=== PATIENT | male | born 1940 | race Hispanic/Latino ===

== ENCOUNTER 2016-09-12 08:03 | Inpatient (IN) | payer MEDICARE, BC ==
[2016-09-12 08:08] VITALS: BMI 26.6
[2016-09-12] MEDS: Sodium Chloride 0.9% 500 ML IV SCH ×2 (08:40→23:00)
[2016-09-12 08:54] LABS: BASO # 0.1 K/uL (0.0-0.2); BASO % 2.1 % (0.0-2.0); EOS # 0.4 K/uL (0.0-0.7); EOS % 9.2 % (0.0-4.0); HEMATOCRIT 29.4 % (35.0-51.0); LYMPH # 0.9 K/uL (1.0-4.3); MEAN CELL VOLUME 89.4 fl (80.0-94.0); MEAN CORPUSCULAR HGB CONC 33.5 g/dL (33.0-37.0); MEAN PLATELET VOLUME 8.5 fl (7.2-11.7); MONO # 0.6 K/uL (0.0-0.8); MONO % 13.2 % (0.0-10.0); NEUT # 2.4 K/uL (1.8-7.0); NEUT % 55.5 % (50.0-75.0); NRBC % 0.2 % (0.0-0.0); RED CELL DISTRIBUTION WIDTH 16.3 % (11.5-14.5); WHITE BLOOD COUNT 4.3 K/uL (4.8-10.8)
[2016-09-12] MEDS ORDERED: Dexamethasone 10 MG in Sodium Chloride 0.9% 50 ML IVPB ONE (09:15)
[2016-09-12 09:26] LABS: ALB/GLOB RATIO 1.2 (1.0-2.1); ALKALINE PHOSPHATASE 86 U/L (38-126); ALT/SGPT 29 U/L (21-72); AST/SGOT 25 U/L (17-59); BILIRUBIN,TOTAL 0.4 mg/dl (0.2-1.3); BLOOD UREA NITROGEN 12 mg/dl (9-20); CARBON DIOXIDE 25 mmol/L (22-30); CHLORIDE 110 mmol/L (98-107); GFR AFRICAN-AMERICAN > 60; GLUCOSE,RANDOM 116 mg/dL (75-110); POTASSIUM 3.2 MMOL/L (3.6-5.0); SODIUM 146 mmol/l (132-148); TOTAL PROTEIN 6.2 G/DL (6.3-8.2)
[2016-09-12] MEDS ORDERED: Cilostazol 50 mg Tab UD PO SCH (09:45)
[2016-09-12 09:56] LABS: CARCINOEMBRYONIC ANTIGEN 11.3 ng/mL (0-3.0)
[2016-09-12] MEDS ORDERED: KCL 40MEQ/NS 1L 1,000 ML IV SCH (10:00)
[2016-09-12] MEDS ORDERED: Lidocaine/Prilocaine CREAM 5GM TP ONE (10:30)
--- NOTE | 2016-09-12 11:16 | CP.PCM.CON ---
History of Present Illness - History of Present Illness History of Present Illness: This is a 76 yrs old male who was diagnosed to have a colon cancer 2 yrs ago. He received chemotherapy and was in remission for 1 yr after which he had a recurrent disease at the, site of anastomosis.and another in the sigmoid colon. Other than occasional diarrhea off and on he has been feeling well. His appetite is good.. He is her for his last dose of chemo after which he will get a PET scan to look for persistant disease. 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,L eye glass) Hx Cataracts: Yes Hx Glaucoma: Yes Other/Comment: Left eye prothesis - RENAL Hx Chronic Kidney Disease: No - ENDOCRINE/METABOLIC Hx Endocrine Disorders: Yes Hx Diabetes Mellitus Type 2: Yes Other/Comment: diabetic neuropathy - HEMATOLOGICAL/ONCOLOGICAL Hx Blood Disorders: Yes Hx AIDS: No Hx Anemia: Yes Hx Blood Transfusions: Yes Hx Blood Transfusion Reaction: No Hx Cancer: Yes (colon) Hx Chemotherapy: Yes Other/Comment: HX MRSA CYST ON SHOULDER - INTEGUMENTARY Hx Dermatological Problems: Yes - MUSCULOSKELETAL/RHEUMATOLOGICAL Hx Musculoskeletal Disorders: Yes Hx Arthritis: Yes Hx Falls: Yes - GASTROINTESTINAL Hx Gastrointestinal Disorders: Yes Hx Bowel Surgery: Yes (colon resection) Hx Gastroesophageal Reflux: Yes Hx Ulcer: Yes (gastric) Other/Comment: HIATAL HERNIA - GENITOURINARY/GYNECOLOGICAL Hx Genitourinary Disorders: No - PSYCHIATRIC Hx Psychophysiologic Disorder: Yes Hx Anxiety: Yes Hx Emotional Abuse: No Hx Physical Abuse: No Hx Substance Use: No - SURGICAL HISTORY Hx Surgeries: Yes Hx Angioplasty: Yes Hx Cataract Extraction: Yes Hx Cardiac Catheterization: Yes (WITH STENT PLACEMENT X 8) Hx Coronary Stent: Yes Hx Tonsillectomy: Yes Other/Comment: NASAL DEVIATED SEPTUM REPAIR 1974. RADIOFREQUENCY ABLATION NERVES BACK 2012. COLON RESECTION 11/2013. DAVID CATH INSERTION 11/2013 & REMOVED DUE TO MRSA - ANESTHESIA Hx Anesthesia: Yes Hx Anesthesia Reactions: No Hx Malignant Hyperthermia: No Meds Allergies/Adverse Reactions: Allergies Allergy/AdvReac Type Severity Reaction Status Date / Time latex Allergy Mild RASH Verified 09/12/16 08:16 codeine Allergy HALLUCINATI Verified 09/12/16 08:16 ON cefepime HCl [From Maxipime] AdvReac Severe Confusion Verified 09/12/16 08:16 gabapentin [From Neurontin] AdvReac Confusion Verified 09/12/16 08:16 morphine AdvReac Hallucinati Verified 09/12/16 08:16 on oxycodone HCl [From Percocet] AdvReac Hallucinati Verified 09/12/16 08:16 on - Medications Medications: Current Medications Amlodipine Besylate (Norvasc) 5 mg PO HS [facility] Ascorbic Acid (Vitamin C 500 Mg Tab) 500 mg PO DAILY [facility] Atorvastatin Calcium (Lipitor) 40 mg PO HS [facility] Famotidine (Pepcid) 20 mg PO BID [facility] Ferrous Sulfate (Feosol) 325 mg PO DAILY [facility] Sodium Chloride (Sodium Chloride 0.9%) 500 mls @ 80 mls/hr IV .Q6H15M [facility] Fluorouracil 680 mg/ Sodium (Chloride) 113.6 mls @ 454.4 mls/hr IV ONCE ONE PRN Reason: As Directed Stop: 09/12/16 12:14 Oxaliplatin 145 mg/ Dextrose 279 mls @ 139.5 mls/hr IV ONCE ONE PRN Reason: As Directed Stop: 09/12/16 14:29 Leucovorin Calcium 680 mg/ (Dextrose) 250 mls @ 125 mls/hr IVPB ONCE ONE PRN Reason: As Directed Stop: 09/12/16 14:14 Fluorouracil 4,080 mg/ Sodium (Chloride) 1,081.6 mls @ 24.582 mls/hr IV ONCE ONE PRN Reason: As Directed Stop: 09/14/16 10:14 Potassium Chloride 40 meq/ (Sodium Chloride) 1,020 mls @ 50 mls/hr IV .[id number] [facility] Stop: 09/13/16 10:01 Insulin Detemir (Levemir) 30 units SC HS [facility] Insulin Human Lispro (Humalog) 12 units SC AC [facility] Loperamide HCl (Imodium) 4 mg PO QID PRN PRN Reason: Diarrhea Losartan Potassium (Cozaar) 100 mg PO HS [facility] Nadolol (Corgard) 40 mg PO DAILY [facility] Theophylline (Uniphyl) 400 mg PO DAILY [facility] Physical Exam - Additional Findings Additional findings: Physical exam; Alert, well oriented, in no acute eidtress neck; Supple, no adenopathy Chest; Clear, no rales or rhonchi Heart; RSR, no murmur Abd; Soft, no mass, no h/s megaly Results - Vital Signs Recent Vital Signs: Last Vital Signs Temp 98.2 F 09/12/16 09:00 Pulse 65 09/12/16 09:14 Resp 18 09/12/16 09:14 BP 135/76 09/12/16 09:00 Pulse Ox 100 09/12/16 09:14 - Labs Result Diagrams: 09/12/16 08:51 09/12/16 08:51 Labs: Laboratory Results - last 24 hr 09/12/16 08:51 WBC 4.3 L RBC 3.29 L Hgb 9.9 L Hct 29.4 L MCV 89.4 MCH 30.0 MCHC 33.5 RDW 16.3 H Plt Count 102 L D MPV 8.5 Neut % (Auto) 55.5 Lymph % (Auto) 20.0 [place] % (Auto) 13.2 H Eos % (Auto) 9.2 H Baso % (Auto) 2.1 H Neut # 2.4 Lymph # 0.9 L [place] # 0.6 Eos # 0.4 Baso # 0.1 Sodium 146 Potassium 3.2 L Chloride 110 H Carbon Dioxide 25 Anion Gap 14 BUN 12 Creatinine 1.0 Est GFR ( Amer) > 60 Est GFR (Non-Af Amer) > 60 Random Glucose 116 H Calcium 9.0 Total Bilirubin 0.4 AST 25 ALT 29 Alkaline Phosphatase 86 Total Protein 6.2 L Albumin 3.4 L Globulin 2.8 Albumin/Globulin Ratio 1.2 Carcinoembryonic Ag 11.3 H Assessment & Plan - Assessment and Plan (Free Text) Assessment: IMpression Colon cancer, recurrent disease Plan: Will give chemotherapy with FOLFOX bolus today and then fluorouracil infusion over 44 hrs - Date & Time Date: 09/12/16 Time: 11:30
[2016-09-12] MEDS: Insulin Lispro (humaLOG) 100 Units/ml Inj SC SCH ×2 (12:00→17:47)
[2016-09-12] MEDS ORDERED: FLUOROURACIL IV ONE ×2 (12:00→14:15)
[2016-09-12] MEDS ORDERED: SODIUM CHLORIDE 0.9% IV ONE ×2 (12:00→14:15)
[2016-09-12] MEDS ORDERED: DEXTROSE 5% IVPB ONE (12:15)
[2016-09-12] MEDS ORDERED: LEUCOVORIN CALCIUM IVPB ONE (12:15)
[2016-09-12] MEDS ORDERED: WATER IVPB ONE (12:15)
--- NOTE | 2016-09-12 12:21 | HP ---
ADMITTING DIAGNOSES: Metastatic colon cancer, insulin-dependent diabetes mellitus, coronary artery d isease. HISTORY OF PRESENT ILLNESS: This unfortunate 76-year-old gentleman is admitted today, 09/12, for cont inuation of chemotherapy. The patient was diagnosed originally with colon cancer about 2 years ago a nd underwent multiple courses of chemotherapy and a partial colon resection. Followup PET scan, jin jagdish, revealed a new lesion at the anastomotic surgical site of partial colectomy and the chemotherapy has been reinitiated on a biweekly basis. PAST MEDICAL HISTORY: Significant for coronary artery disease, 10 stents placed in the past, also in sulin-dependent diabetes mellitus, diabetic retinopathy, blindness, diabetic neuropathy, hypertension , hyperlipidemia, chronic back pain secondary to osteoarthritis. He is an exsmoker, smoked for many years. Denies any alcohol abuse, but he drinks socially. FAMILY HISTORY: Significant for diabetes in a child. PAST SURGICAL HISTORY: Enucleation of the left eye, multiple coronary stents and partial colon resec tion. PHYSICAL EXAMINATION: GENERAL: He is a pleasant, though this morning a rather demure elderly white gentleman, awake, alert , oriented x 3 in no acute distress. His is at bedside. VITAL SIGNS: Reveal blood pressure of 135/76, respirations 18, pulse 68, temperature 98.2. 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 NECK: Supple. No JVD, bruits, no thyromegaly. CHEST: Symmetrical. LUNGS: Clear. HEART: Regular rhythm and rate. ABDOMEN: Soft, diffusely slightly tender. No guarding or rebound tenderness. EXTREMITIES: No cyanosis, clubbing, or edema. NEUROLOGIC: Nonfocal. ASSESSMENT: We have a 76-year-old gentleman with colon cancer readmitted for 5-FU and continuation o f his chemotherapeutic regimen. Dr. Mills's help was greatly appreciated. PLAN: Will continue his regular medications. Hypokalemia is noted on his admission orders and this will be repleted. His albumin was 3.4, hemoglobin 9.9, platelets 102. Sylvain Durán MD cc: [id number] TT: 09/12/2016 12:21:31 rn
[2016-09-12] MEDS ORDERED: WATER IV ONE (12:30)
[2016-09-12] MEDS ORDERED: DEXTROSE 5% IV ONE (12:30)
[2016-09-12] MEDS ORDERED: OXALIPLATIN IV ONE (12:30)
[2016-09-12] MEDS ORDERED: Potassium Chloride 20 mEq ER Tab PO ONE (17:00)
[2016-09-12] MEDS: Cilostazol 50 mg Tab UD PO SCH (17:45)
[2016-09-12] MEDS ORDERED: Insulin Lispro (humaLOG) 100 Units/ml Inj SC STA (18:04)
[2016-09-12 19:47] VITALS: RESP 20
[2016-09-12] MEDS: Insulin Detemir 100 Units/ml Inj SC SCH (22:50)
[2016-09-13] MEDS: Insulin Lispro (humaLOG) 100 Units/ml Inj SC SCH ×3 (08:59→17:55)
[2016-09-13] MEDS: THEOPHYLLINE 400 MG T24(UNIPHYL) PO SCH (09:03)
[2016-09-13] MEDS: Cilostazol 50 mg Tab UD PO SCH ×2 (09:05→16:56)
[2016-09-13] MEDS: VIT C PO SCH (09:06)
[2016-09-13] MEDS: FE FUMARATE PO SCH (09:06)
[2016-09-13] MEDS: B12 PO SCH (09:06)
[2016-09-13] MEDS: [UNRECOGNIZED DRUG - OTHER] PO SCH (09:06)
[2016-09-13 09:10] LABS: EOS # 0.2 K/uL (0.0-0.7); EOS % 3.9 % (0.0-4.0); LYMPH # 0.1 K/uL (1.0-4.3); LYMPH % 1.8 % (20.0-40.0); MEAN CORPUSCULAR HEMOGLOBIN 29.6 pg (27.0-31.0); MEAN CORPUSCULAR HGB CONC 32.5 g/dL (33.0-37.0); MEAN PLATELET VOLUME 9.2 fl (7.2-11.7); MONO # 0.4 K/uL (0.0-0.8); MONO % 9.8 % (0.0-10.0); NEUT # 3.8 K/uL (1.8-7.0); NEUT % 83.5 % (50.0-75.0); NRBC % 0.1 % (0.0-0.0); PLATELET COUNT 93 K/uL (130-400); RED CELL DISTRIBUTION WIDTH 16.5 % (11.5-14.5); WHITE BLOOD COUNT 4.5 K/uL (4.8-10.8)
[2016-09-13 09:23] LABS: BLOOD UREA NITROGEN 15 mg/dl (9-20); CALCIUM 9.2 mg/dL (8.4-10.2); CARBON DIOXIDE 23 mmol/L (22-30); CHLORIDE 109 mmol/L (98-107); GFR AFRICAN-AMERICAN > 60; GLUCOSE,RANDOM 199 mg/dL (75-110); POTASSIUM 3.7 MMOL/L (3.6-5.0); SODIUM 145 mmol/l (132-148)
--- NOTE | 2016-09-13 10:02 | CP.PCM.PN ---
Subjective - Date & Time of Evaluation Date of Evaluation: 09/13/16 Time of Evaluation: 09:54 - Subjective Subjective: Pt is on the 2nd day of fluorocil infusion. He has no symptoms at this time, except the constipation.He will be discharged after the infusion is finished. Objective - Vital Signs/Intake and Output Vital Signs (last 24 hours): Temp Pulse Resp BP Pulse Ox 98.8 F 75 20 137/63 100 09/13/16 08:31 09/13/16 09:04 09/13/16 08:31 09/13/16 09:04 09/13/16 08:31 - Medications Medications: Current Medications Acetaminophen (Tylenol 325mg Tab) 975 mg PO TID PRN PRN Reason: Pain, moderate (4-7) Last Admin: 09/12/16 20:32 Dose: 975 mg Amlodipine Besylate (Norvasc) 5 mg PO HS [facility] Last Admin: 09/12/16 21:34 Dose: 5 mg Ascorbic Acid (Vitamin C 500 Mg Tab) 500 mg PO DAILY [facility] Last Admin: 09/13/16 09:05 Dose: 500 mg Ascorbic Acid (Vitamin C 250 Mg Tab) 250 mg PO DAILY [facility] Last Admin: 09/13/16 09:04 Dose: 250 mg Aspirin (Aspirin Chewable) 81 mg PO HS [facility] Last Admin: 09/12/16 21:35 Dose: 81 mg Atorvastatin Calcium (Lipitor) 40 mg PO HS [facility] Last Admin: 09/12/16 21:36 Dose: 40 mg Cholecalciferol (Vitamin D) 2,000 iu PO DAILY [facility] Cilostazol (Pletal) 50 mg PO BID [facility] Last Admin: 09/13/16 09:05 Dose: 50 mg Famotidine (Pepcid) 20 mg PO BID [facility] Last Admin: 09/13/16 09:05 Dose: 20 mg Home Med (Fe Fumarate/Vit C/B12/Stomc [Hematogen Softgel]) 1 gel PO DAILY [facility] Last Admin: 09/13/16 09:06 Dose: 1 gel Sodium Chloride (Sodium Chloride 0.9%) 500 mls @ 80 mls/hr IV .Q6H15M [facility] Last Admin: 09/12/16 23:00 Dose: Not Given Fluorouracil 4,080 mg/ Sodium (Chloride) 1,081.6 mls @ 24.582 mls/hr IV ONCE ONE PRN Reason: As Directed Stop: 09/14/16 10:14 Last Admin: 09/12/16 16:34 Dose: 24.582 mls/hr Insulin Detemir (Levemir) 30 units SC [facility] Last Admin: 09/12/16 22:50 Dose: 30 units Insulin Human Lispro (Humalog) 12 units SC [facility] Last Admin: 09/13/16 08:59 Dose: Not Given Loperamide HCl (Imodium) 4 mg PO QID PRN PRN Reason: Diarrhea Losartan Potassium (Cozaar) 100 mg PO [facility] Last Admin: 09/12/16 21:35 Dose: 100 mg Nadolol (Corgard) 40 mg PO DAILY [facility] Last Admin: 09/13/16 09:04 Dose: 40 mg Theophylline (Uniphyl) 400 mg PO DAILY [facility] Last Admin: 09/13/16 09:03 Dose: 400 mg - Labs Labs: 09/13/16 08:26 09/13/16 08:35
[2016-09-13 10:59] LABS: EOSINOPHIL 6 % (0-7); NEUTROPHIL 85 % (42-75); TOTAL CELLS COUNTED 100
--- NOTE | 2016-09-13 11:55 | PQF GENQUE ---
Dr. Durán, Is there an associated diagnosis to go along with the following clinical labs? : WBC:4.3->4.5 RBC:3.29->3.18 H/H:9.9/29.4->9.4/29.0 Plt Count:102->93 OR: Unable to determine Admitted for chemotherapy;hematogen softgel:1 gel PO Daily This form is a permanent part of the medical record Clarification of your documentation is requested to better reflect the severity of illness and intensity of treatment of your patient. Indicators present [] Specify: [] [] Specify: [] [] Specify: [] [] Specify: [] Location in the medical record that reflects the above clinical findings: [] Treatment Provided: [] PHYSICIAN'S RESPONSE Based on your medical judgment of the clinical indicators outlined above please clarify the following: [] Practitioner response [] If unable to determine, please check the box, sign and date. Present On Admission (POA) Indicator: [] Present at the time of admission [] Not present at the time of admission [] Clinically Undetermined In responding to this query, please exercise your independent professional judgment. The fact that a question is asked does not imply that any particular answer is desired or expected. Thank you for your clarification on this documentation. If you have any questions please call. * Thank you, Rebecca Hogan RN BSN ext. #[phone] MTDD
--- NOTE | 2016-09-13 19:15 | PN ---
DATE: 09/13/2016 ATTENDING: The patient appears comfortable, but says he slept poorly last night and has had cramps. PHYSICAL EXAMINATION: VITAL SIGNS: Stable. Temperature is 98.5, respirations 20, pulse 75, blood pressure 118/52. LUNGS: Clear. HEART: Regular rhythm. ABDOMEN: Soft, __diffusely___ slightly tender. EXTREMITIES: No edema. PLAN: Continue current therapy. Will add to the regimen. Continue with chemotherapy. Recheck labs tomorrow morning. Sylvain Durán MD cc: 84 TT: 09/13/2016 19:15:12 Confirmation # [id number] Dictation # [id number] dn MTDD
[2016-09-13] MEDS: Insulin Detemir 100 Units/ml Inj SC SCH (22:37)
[2016-09-14] MEDS: Cilostazol 50 mg Tab UD PO SCH ×2 (08:18→17:41)
[2016-09-14] MEDS: [UNRECOGNIZED DRUG - OTHER] PO SCH (08:20)
[2016-09-14] MEDS: THEOPHYLLINE 400 MG T24(UNIPHYL) PO SCH (08:20)
[2016-09-14] MEDS: VIT C PO SCH (08:20)
[2016-09-14] MEDS: B12 PO SCH (08:20)
[2016-09-14] MEDS: FE FUMARATE PO SCH (08:20)
[2016-09-14] MEDS: Insulin Lispro (humaLOG) 100 Units/ml Inj SC SCH ×3 (08:24→16:25)
[2016-09-14 08:47] LABS: BLOOD UREA NITROGEN 16 mg/dl (9-20); CALCIUM 8.9 mg/dL (8.4-10.2); CARBON DIOXIDE 25 mmol/L (22-30); CHLORIDE 111 mmol/L (98-107); GFR AFRICAN-AMERICAN > 60; GLUCOSE,RANDOM 55 mg/dL (75-110); POTASSIUM 3.5 MMOL/L (3.6-5.0); SODIUM 142 mmol/l (132-148)
[2016-09-14] MEDS ORDERED: Potassium Chloride 20 mEq ER Tab PO ONE (09:52)
--- NOTE | 2016-09-14 11:01 | PN ---
DATE: 09/14/2016 The patient appears comfortable. Said he slept poorly again last night. Chemotherapy is continuing. PHYSICAL EXAMINATION: VITAL SIGNS: Stable. Temperature 98.5, respirations 20, pulse 54, blood pressure 125/55. LUNGS: Clear. HEART: Regular rate and rhythm. ABDOMEN: Soft, slightly tender. EXTREMITIES: No edema. LABORATORY DATA: Hemoglobin yesterday 9.4, potassium 3.5. PLAN: Replete potassium orally and then likely discharge to home with followup in 2 weeks for repeat chemotherapy here in [facility]. Sylvain Durán MD cc: 84 TT: 09/14/2016 11:01:18 Confirmation # [id number] Dictation # [id number] chintan
--- NOTE | 2016-09-14 12:14 | CP.PCM.PN ---
Subjective - Date & Time of Evaluation Date of Evaluation: 09/14/16 Time of Evaluation: 12:07 - Subjective Subjective: pt is on the 3rd day of fluorocil infusion. He will be discharged when it is finished. Will return in 2 weeks for the next course of chemotherapy. Objective - Vital Signs/Intake and Output Vital Signs (last 24 hours): Temp Pulse Resp BP Pulse Ox 98.5 F 54 L 20 125/55 L 99 09/14/16 08:07 09/14/16 08:20 09/14/16 08:07 09/14/16 08:20 09/14/16 08:07 - Medications Medications: Current Medications Acetaminophen (Tylenol 325mg Tab) 975 mg PO TID PRN PRN Reason: Pain, moderate (4-7) Last Admin: 09/14/16 05:13 Dose: 975 mg Amlodipine Besylate (Norvasc) 5 mg PO [facility] Last Admin: 09/13/16 21:46 Dose: 5 mg Ascorbic Acid (Vitamin C 500 Mg Tab) 500 mg PO DAILY [facility] Last Admin: 09/14/16 08:19 Dose: 500 mg Ascorbic Acid (Vitamin C 250 Mg Tab) 250 mg PO DAILY [facility] Last Admin: 09/14/16 08:18 Dose: Not Given Aspirin (Aspirin Chewable) 81 mg PO [facility] Last Admin: 09/13/16 21:45 Dose: 81 mg Atorvastatin Calcium (Lipitor) 40 mg PO [facility] Last Admin: 09/13/16 21:46 Dose: 40 mg Cholecalciferol (Vitamin D) 2,000 iu PO DAILY [facility] Last Admin: 09/14/16 08:23 Dose: 2,000 iu Cilostazol (Pletal) 50 mg PO BID [facility] Last Admin: 09/14/16 08:18 Dose: 50 mg Famotidine (Pepcid) 20 mg PO BID [facility] Last Admin: 09/14/16 08:22 Dose: 20 mg Home Med (Fe Fumarate/Vit C/B12/Stomc [Hematogen Softgel]) 1 gel PO DAILY [facility] Last Admin: 09/14/16 08:20 Dose: 1 gel Sodium Chloride (Sodium Chloride 0.9%) 500 mls @ 80 mls/hr IV .Q6H15M [facility] Last Admin: 09/12/16 23:00 Dose: Not Given Insulin Detemir (Levemir) 30 units SC [facility] Last Admin: 03/21/17 22:37 Dose: 20 units Insulin Human Lispro (Humalog) 12 units SC AC [facility] Last Admin: 09/14/16 08:24 Dose: Not Given Loperamide HCl (Imodium) 4 mg PO QID PRN PRN Reason: Diarrhea Last Admin: 09/13/16 17:50 Dose: 4 mg Losartan Potassium (Cozaar) 100 mg PO [facility] Last Admin: 09/13/16 21:46 Dose: 100 mg Nadolol (Corgard) 40 mg PO DAILY [facility] Last Admin: 09/14/16 08:20 Dose: 40 mg Theophylline (Uniphyl) 400 mg PO DAILY [facility] Last Admin: 09/14/16 08:20 Dose: 400 mg - Labs Labs: 09/14/16 08:20 09/14/16 08:20
[2016-09-14 17:10] VITALS: BP 173/72; PULSE 78; TEMP 98.3; O2SAT 100
== END 2016-09-14 19:34 | disposition home or self-care (01) | DRG 847 ==
LOC: H.MEDSURG1 08:13
PROVIDERS: ADMIT Internal Medicine; ATTEND Internal Medicine
DX: Z51.11 Encounter for antineoplastic chemotherapy (principal); C18.9 Malignant neoplasm of colon, unspecified; E11.40 Type 2 diabetes mellitus with diabetic neuropathy, unspecified; I10 Essential (primary) hypertension; E78.5 Hyperlipidemia, unspecified; D63.8 Anemia in other chronic diseases classified elsewhere; I25.10 Atherosclerotic heart disease of native coronary artery without angina pectoris; Z95.5 Presence of coronary angioplasty implant and graft; Z87.891 Personal history of nicotine dependence; E11.319 Type 2 diabetes mellitus with unspecified diabetic retinopathy without macular edema

== ENCOUNTER 2016-09-26 07:41 | Inpatient (IN) | payer MEDICARE, BC ==
[2016-09-26] MEDS ORDERED: Lidocaine/Prilocaine CREAM 5GM TP ONE (09:01)
[2016-09-26] MEDS: Sodium Chloride 0.9% 500 ML IV SCH ×2 (09:20→17:17)
[2016-09-26 09:44] LABS: BASO % 1.3 % (0.0-2.0); EOS # 0.4 K/uL (0.0-0.7); EOS % 10.3 % (0.0-4.0); LYMPH # 0.8 K/uL (1.0-4.3); LYMPH % 22.3 % (20.0-40.0); MEAN CORPUSCULAR HEMOGLOBIN 30.2 pg (27.0-31.0); MEAN CORPUSCULAR HGB CONC 33.2 g/dL (33.0-37.0); MEAN PLATELET VOLUME 8.7 fl (7.2-11.7); MONO # 0.4 K/uL (0.0-0.8); MONO % 10.9 % (0.0-10.0); NEUT % 55.2 % (50.0-75.0); WHITE BLOOD COUNT 3.6 K/uL (4.8-10.8)
[2016-09-26 09:57] LABS: ALB/GLOB RATIO 1.2 (1.0-2.1); ALKALINE PHOSPHATASE 80 U/L (38-126); ALT/SGPT 27 U/L (21-72); AST/SGOT 27 U/L (17-59); BILIRUBIN,TOTAL 0.4 mg/dl (0.2-1.3); BLOOD UREA NITROGEN 15 mg/dl (9-20); CALCIUM 9.1 mg/dL (8.4-10.2); CARBON DIOXIDE 25 mmol/L (22-30); CHLORIDE 111 mmol/L (98-107); GFR AFRICAN-AMERICAN > 60; GLUCOSE,RANDOM 174 mg/dL (75-110); POTASSIUM 3.4 MMOL/L (3.6-5.0); SODIUM 147 mmol/l (132-148); TOTAL PROTEIN 6.1 G/DL (6.3-8.2)
--- NOTE | 2016-09-26 10:22 | HP ---
ADMITTING DIAGNOSES: Colon cancer, diabetes, coronary artery disease. This unfortunate 76-year-old gentleman with multiple medical problems represents to [place] today for another round of chemotherapy for his metastatic colon cancer. The patient was originally diagnosed 2 years ago and underwent multiple courses and partial colon resection. Followup PET scan revealed a new lesion in the anastomotic surgical site with a partial colectomy , and chemotherapy was reinitiated on a biweekly basis. PAST MEDICAL HISTORY: Coronary artery disease, status post 10 stents placed in the past, IDDM, diabetic retinopathy with blindness, diabetic neuropathy, hypertension, hyperlipidemia. He also has chronic back pain secondary to osteoarthritis. SOCIAL HISTORY: He is an ex-smoker, smoked for many years. Denies any alcohol use, but drinks socially. FAMILY HISTORY: Significant for diabetes in his child. PAST SURGICAL HISTORY: Multiple coronary stents and enucleation of the left eye. PHYSICAL EXAMINATION: GENERAL: He is a pleasant, well-developed, well-nourished white gentleman, awake, alert, and oriented x 3 in no acute distress. His is at his bedside. VITAL SIGNS: Reveal a temperature 98.2, respirations 20. Pulse is __regular__ . Blood pressure is 145/6_8___. 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 Right eye is reactive pupil. Mucous membranes are moist. NECK: Supple. No JVD, bruits, no thyromegaly. CHEST: Symmetrical. LUNGS: Clear. HEART: Regular rhythm. ABDOMEN: Soft. Diffusely tender with voluntary guarding, but no rebound. EXTREMITIES: No cyanosis, clubbing, or edema. NEUROLOGIC: Grossly nonfocal, except of course, his left eye. ASSESSMENT: We have a 76-year-old gentleman with metastatic colon cancer for chemotherapy over the next [address] Mills's efforts are greatly appreciated. His regular medications and Accu-Cheks will be continued. The patient is known to frequently alter his dosage of insulin for his diabetes, and he will be given latitude. Sylvain Durán MD cc: 84 TT: 09/26/2016 10:21:13 jn MTDDanny
[2016-09-26] MEDS ORDERED: Dexamethasone 10 MG in Sodium Chloride 0.9% 50 ML IVPB ONE (10:30)
[2016-09-26] MEDS ORDERED: Fosaprepitant 150 MG in Sodium Chloride 0.9% 250 ML IVPB ONE (11:00)
[2016-09-26] MEDS ORDERED: OXALIPLATIN IV ONE (11:00)
[2016-09-26] MEDS ORDERED: DEXTROSE 5% IV ONE (11:00)
[2016-09-26] MEDS ORDERED: WATER IVPB ONE (11:00)
[2016-09-26] MEDS ORDERED: LEUCOVORIN CALCIUM IVPB ONE (11:00)
[2016-09-26] MEDS ORDERED: WATER IV ONE (11:00)
[2016-09-26] MEDS ORDERED: DEXTROSE 5% IVPB ONE (11:00)
[2016-09-26] MEDS ORDERED: FLUOROURACIL IV ONE ×2 (12:00→13:00)
[2016-09-26] MEDS ORDERED: SODIUM CHLORIDE 0.9% IV ONE ×2 (12:00→13:00)
[2016-09-26] MEDS: Insulin Lispro (humaLOG) 100 Units/ml Inj SC SCH ×3 (13:26→22:08)
--- NOTE | 2016-09-26 13:50 | HP ---
ADMITTING DIAGNOSIS: Metastatic colon cancer. DICTATION ENDS HERE. (cancelled by ringing phone and restarted) Sylvain Durán MD cc: 84 TT: 09/26/2016 09:53:01 jn MTDD
--- NOTE | 2016-09-26 16:21 | CP.PCM.CON ---
History of Present Illness - History of Present Illness History of Present Illness: This is a 76 yrs old male who was diagnosed to have a colon cancer 2 yrs ago . He had resection of the mass followed by chemotherapy with FOLFOX . He did well until 6 months ago, when he had recurrent disease in the sigmoid and at the site of metastasis. He was restarted on chemotherapy, and pt has been doing fairly well except for occasional diarrhea.He seems to be getting a little anxious thinking that this is his last treatment. He will then have a PET scan to determine if there is any residual disease. He also has DM, CAD, HTN, COPD, and is legally blind. 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,L eye glass) Hx Cataracts: Yes Hx Glaucoma: Yes Other/Comment: Left eye prothesis - RENAL Hx Chronic Kidney Disease: No - ENDOCRINE/METABOLIC Hx Endocrine Disorders: Yes Hx Diabetes Mellitus Type 2: Yes Other/Comment: diabetic neuropathy - HEMATOLOGICAL/ONCOLOGICAL Hx Blood Disorders: Yes Hx AIDS: No Hx Anemia: Yes Hx Blood Transfusions: Yes Hx Blood Transfusion Reaction: No Hx Cancer: Yes (colon) Hx Chemotherapy: Yes Other/Comment: HX MRSA CYST ON SHOULDER - INTEGUMENTARY Hx Dermatological Problems: Yes - MUSCULOSKELETAL/RHEUMATOLOGICAL Hx Musculoskeletal Disorders: Yes Hx Arthritis: Yes Hx Falls: Yes - GASTROINTESTINAL Hx Gastrointestinal Disorders: Yes Hx Bowel Surgery: Yes (colon resection) Hx Gastroesophageal Reflux: Yes Hx Ulcer: Yes (gastric) Other/Comment: HIATAL HERNIA - GENITOURINARY/GYNECOLOGICAL Hx Genitourinary Disorders: No - PSYCHIATRIC Hx Psychophysiologic Disorder: Yes Hx Anxiety: Yes Hx Emotional Abuse: No Hx Physical Abuse: No Hx Substance Use: No - SURGICAL HISTORY Hx Surgeries: Yes Hx Angioplasty: Yes Hx Cataract Extraction: Yes Hx Cardiac Catheterization: Yes (WITH STENT PLACEMENT X 8) Hx Coronary Stent: Yes Hx Tonsillectomy: Yes Other/Comment: NASAL DEVIATED SEPTUM REPAIR 1974. RADIOFREQUENCY ABLATION NERVES BACK 2012. COLON RESECTION 11/2013. DAVID CATH INSERTION 11/2013 & REMOVED DUE TO MRSA - ANESTHESIA Hx Anesthesia: Yes Hx Anesthesia Reactions: No Hx Malignant Hyperthermia: No Meds Allergies/Adverse Reactions: Allergies Allergy/AdvReac Type Severity Reaction Status Date / Time latex Allergy Mild RASH Verified 09/12/16 08:16 codeine Allergy HALLUCINATI Verified 09/12/16 08:16 ON cefepime HCl [From Maxipime] AdvReac Severe Confusion Verified 09/12/16 08:16 gabapentin [From Neurontin] AdvReac Confusion Verified 09/12/16 08:16 morphine AdvReac Hallucinati Verified 09/12/16 08:16 on oxycodone HCl [From Percocet] AdvReac Hallucinati Verified 09/12/16 08:16 on - Medications Medications: Current Medications Acetaminophen (Tylenol 325mg Tab) 975 mg PO Q6 PRN PRN Reason: Pain, moderate (4-7) Amlodipine Besylate (Norvasc) 5 mg PO DAILY [facility] Ascorbic Acid (Vitamin C 250 Mg Tab) 250 mg PO DAILY [facility] Aspirin (Aspirin Chewable) 81 mg PO DAILY [facility] Atorvastatin Calcium (Lipitor) 40 mg PO DAILY [facility] Cholecalciferol (Vitamin D) 2,000 iu PO DAILY [facility] Cilostazol (Pletal) 50 mg PO DAILY [facility] Famotidine (Pepcid) 20 mg PO BID [facility] Sodium Chloride (Sodium Chloride 0.9%) 500 mls @ 70 mls/hr IV .Q7H9M [facility] Last Admin: 09/26/16 09:20 Dose: 70 mls/hr Fluorouracil 4,080 mg/ Sodium (Chloride) 1,081.6 mls @ 24.582 mls/hr IV ONCE ONE Stop: 09/28/16 08:59 Last Admin: 09/26/16 15:42 Dose: 24.582 mls/hr Insulin Detemir (Levemir) 30 units SC HS [facility] Insulin Human Lispro (Humalog) 0 units SC [facility] PRN Reason: Protocol Last Admin: 09/26/16 13:26 Dose: 1 unit Nadolol (Corgard) 40 mg PO DAILY [facility] Theophylline (Uniphyl) 400 mg PO DAILY [facility] Physical Exam - Additional Findings Additional findings: Physical exam; Alert. well oriented in no acute distress neck; Supple, no adenopathy Chest; Clear, no rales 0r rhonchi Heart; RSR, no murmur Abd; Soft, no mass, no hepato/splenomegaly Results - Vital Signs Recent Vital Signs: Last Vital Signs Temp 98.2 F 09/26/16 09:00 Pulse 61 09/26/16 09:00 Resp 20 09/26/16 09:00 BP 145/69 09/26/16 09:00 Pulse Ox 100 09/26/16 09:00 - Labs Result Diagrams: 09/26/16 09:15 09/26/16 09:15 Labs: Laboratory Results - last 24 hr 09/26/16 09/26/16 09:15 13:04 WBC 3.6 L RBC 2.97 L Hgb 9.0 L Hct 27.0 L MCV 91.0 MCH 30.2 MCHC 33.2 RDW 16.0 H Plt Count 99 L MPV 8.7 Neut % (Auto) 55.2 Lymph % (Auto) 22.3 Bee % (Auto) 10.9 H Eos % (Auto) 10.3 H Baso % (Auto) 1.3 Neut # 2.0 Lymph # 0.8 L Bee # 0.4 Eos # 0.4 Baso # 0.0 Sodium 147 Potassium 3.4 L Chloride 111 H Carbon Dioxide 25 Anion Gap 14 BUN 15 Creatinine 1.0 Est GFR ( Amer) > 60 Est GFR (Non-Af Amer) > 60 POC Glucose (mg/dL) 161 H Random Glucose 174 H Calcium 9.1 Total Bilirubin 0.4 AST 27 ALT 27 Alkaline Phosphatase 80 Total Protein 6.1 L Albumin 3.3 L Globulin 2.8 Albumin/Globulin Ratio 1.2 Assessment & Plan - Assessment and Plan (Free Text) Assessment: Impression; Colon cancer, HTN,COPD, DMtype1, Blindlness both eyes Plan: Plan; Will give chemotherapy with oxaliplatin, leucovorin, fluorouracil a. After chemo he waiil get a PET scan depending on which furthr treatment plan will be made. - Date & Time Date: 09/26/16 Time: 16:34
[2016-09-26] MEDS: Insulin Detemir 100 Units/ml Inj SC SCH (22:08)
[2016-09-27] MEDS ORDERED: Potassium Chloride 20 mEq ER Tab PO ONE (08:14)
[2016-09-27] MEDS: THEOPHYLLINE 400 MG T24(UNIPHYL) PO SCH (08:38)
[2016-09-27] MEDS: Cilostazol 50 mg Tab UD PO SCH (08:38)
[2016-09-27] MEDS: Sodium Chloride 0.9% 500 ML IV SCH ×3 (08:39→21:47)
[2016-09-27] MEDS: Insulin Lispro (humaLOG) 100 Units/ml Inj SC SCH ×4 (08:39→21:28)
--- NOTE | 2016-09-27 08:50 | PQF GENQUE ---
This form is a permanent part of the medical record 09/27/16 Dr.J. Durán, Would you please clarify if there is an associated diagnosis or not to go along with the following lab findings: Wbc 3.6, H&H 03/22 and platelets 99,000. Patient with colon cancer admitted for chemotherapy. Clarification of your documentation is requested to better reflect the severity of illness and intensity of treatment of your patient. PHYSICIAN'S RESPONSE Based on your medical judgment of the clinical indicators outlined above please clarify the following: x[] Practitioner response thrombocytopenia and anemia secondary to chemotherapy [] If unable to determine, please check the box, sign and date. Present On Admission (POA) Indicator: [] xPresent at the time of admission [] Not present at the time of admission [] Clinically Undetermined In responding to this query, please exercise your independent professional judgment. The fact that a question is asked does not imply that any particular answer is desired or expected. Thank you for your clarification on this documentation. If you have any questions please call:[phone] * Thank you, Mimi Rice RN [facility]
[2016-09-27] MEDS ORDERED: Enoxaparin 30 mg Syringe SC SCH (09:00)
--- NOTE | 2016-09-27 09:24 | PN ---
DATE: 09/27/2016 The patient appears comfortable, had diarrhea again last night. Bright and alert today. Hypokalemia noted.Thrombocyrtopenia and anemia secondary to chemotherapy, cancer and chronic disease PHYSICAL EXAMINATION: VITAL SIGNS: Stable. Temperature is 98.5, respirations 20, pulse is 85, blood pressure 116/65. LUNGS: Clear. HEART: Regular rhythm. ABDOMEN: Soft, slightly tender. EXTREMITIES: No edema. No calf tenderness. PLAN: Continue current therapy. We will replete potassium. Electrolytes, CBC , magnesium level tomorrow. Dr. Mills's efforts greatly appreciated. Will give a standing order for Imodium. Sylvain Durán MD cc: [id number] TT: 09/27/2016 09:23:50 Confirmation # [id number] Dictation # [id number] mn MTDD
--- NOTE | 2016-09-27 10:45 | CP.PCM.PN ---
Subjective - Date & Time of Evaluation Date of Evaluation: 09/27/16 Time of Evaluation: 10:42 - Subjective Subjective: Pt had a couple of episodes of diarrhea last night . Better after the immodium. No abdominal pain Objective - Vital Signs/Intake and Output Vital Signs (last 24 hours): Temp Pulse Resp BP Pulse Ox 97.4 F L 78 20 183/78 H 100 09/27/16 08:40 09/27/16 08:40 09/27/16 08:40 09/27/16 08:40 09/27/16 08:40 - Medications Medications: Current Medications Acetaminophen (Tylenol 325mg Tab) 975 mg PO Q6 PRN PRN Reason: Pain, moderate (4-7) Last Admin: 09/27/16 08:38 Dose: 975 mg Amlodipine Besylate (Norvasc) 5 mg PO DAILY [facility] Last Admin: 09/27/16 08:38 Dose: 5 mg Ascorbic Acid (Vitamin C 250 Mg Tab) 250 mg PO DAILY [facility] Last Admin: 09/27/16 08:38 Dose: 250 mg Aspirin (Aspirin Chewable) 81 mg PO DAILY [facility] Last Admin: 09/27/16 08:38 Dose: 81 mg Atorvastatin Calcium (Lipitor) 40 mg PO DAILY [facility] Last Admin: 09/27/16 08:39 Dose: 40 mg Cholecalciferol (Vitamin D) 2,000 iu PO DAILY [facility] Last Admin: 09/27/16 08:38 Dose: 2,000 iu Cilostazol (Pletal) 50 mg PO DAILY [facility] Last Admin: 09/27/16 08:38 Dose: 50 mg Famotidine (Pepcid) 20 mg PO BID [facility] Last Admin: 09/27/16 08:38 Dose: 20 mg Sodium Chloride (Sodium Chloride 0.9%) 500 mls @ 70 mls/hr IV .Q7H9M [facility] Last Admin: 09/27/16 08:39 Dose: Not Given Fluorouracil 4,080 mg/ Sodium (Chloride) 1,081.6 mls @ 24.582 mls/hr IV ONCE ONE Stop: 09/28/16 08:59 Last Admin: 09/26/16 15:42 Dose: 24.582 mls/hr Insulin Detemir (Levemir) 30 units SC [facility] Last Admin: 09/26/16 22:08 Dose: 30 units Insulin Human Lispro (Humalog) 0 units SC ACHS [facility] PRN Reason: Protocol Last Admin: 09/27/16 08:39 Dose: 3 unit Loperamide HCl (Imodium) 4 mg PO QID PRN PRN Reason: Diarrhea Nadolol (Corgard) 40 mg PO DAILY [facility] Last Admin: 09/27/16 08:38 Dose: 40 mg Theophylline (Uniphyl) 400 mg PO DAILY [facility] Last Admin: 09/27/16 08:38 Dose: 400 mg - Labs Labs: 09/26/16 09:15 09/26/16 09:15 Assessment and Plan - Assessment and Plan (Free Text) Assessment: Imp; Colon cancer with recurrent disease. Plan: Plan; Will continue fluorouracil infusion for a total of 44 hrs.
[2016-09-27] MEDS: Insulin Detemir 100 Units/ml Inj SC SCH (21:27)
[2016-09-28 08:20] VITALS: PULSE 69; RESP 20; TEMP 98.1; O2SAT 100
[2016-09-28] MEDS: THEOPHYLLINE 400 MG T24(UNIPHYL) PO SCH (09:05)
[2016-09-28] MEDS: Insulin Lispro (humaLOG) 100 Units/ml Inj SC SCH ×2 (09:06→12:05)
[2016-09-28] MEDS: Sodium Chloride 0.9% 500 ML IV SCH ×2 (09:06→11:31)
[2016-09-28] MEDS: Cilostazol 50 mg Tab UD PO SCH (09:06)
--- NOTE | 2016-09-28 09:24 | CP.PCM.PN ---
Subjective - Date & Time of Evaluation Date of Evaluation: 09/28/16 Time of Evaluation: 09:22 - Subjective Subjective: Pt was here for chemotherapy for colon cancer. He was given bevacizumab + FOLFOX , and did well . He will have a Pet scan in 1 month and a decision of will be made re further treatment. Objective - Vital Signs/Intake and Output Vital Signs (last 24 hours): Temp Pulse Resp BP Pulse Ox 98.1 F 69 20 123/56 L 100 09/28/16 08:19 09/28/16 08:19 09/28/16 08:19 09/27/16 17:00 09/28/16 08:19 - Medications Medications: Current Medications Acetaminophen (Tylenol 325mg Tab) 975 mg PO Q6 PRN PRN Reason: Pain, moderate (4-7) Last Admin: 09/28/16 02:56 Dose: 975 mg Amlodipine Besylate (Norvasc) 5 mg PO [facility] Ascorbic Acid (Vitamin C 250 Mg Tab) 250 mg PO DAILY [facility] Last Admin: 09/28/16 09:04 Dose: 250 mg Aspirin (Aspirin Chewable) 81 mg PO DAILY [facility] Last Admin: 09/28/16 09:14 Dose: 81 mg Atorvastatin Calcium (Lipitor) 40 mg PO [facility] Cholecalciferol (Vitamin D) 2,000 iu PO DAILY [facility] Last Admin: 09/28/16 09:05 Dose: 2,000 iu Cilostazol (Pletal) 50 mg PO DAILY [facility] Last Admin: 09/28/16 09:06 Dose: 50 mg Famotidine (Pepcid) 20 mg PO BID [facility] Last Admin: 09/28/16 09:04 Dose: 20 mg Sodium Chloride (Sodium Chloride 0.9%) 500 mls @ 70 mls/hr IV .Q7H9M [facility] Last Admin: 09/28/16 09:06 Dose: Not Given Insulin Detemir (Levemir) 30 units SC HS [facility] Last Admin: 09/27/16 21:27 Dose: 30 units Insulin Human Lispro (Humalog) 0 units SC ACHS [facility] PRN Reason: Protocol Last Admin: 09/28/16 09:06 Dose: Not Given Loperamide HCl (Imodium) 4 mg PO QID PRN PRN Reason: Diarrhea Nadolol (Corgard) 40 mg PO DAILY [facility] Last Admin: 09/28/16 09:06 Dose: 40 mg Theophylline (Uniphyl) 400 mg PO DAILY [facility] Last Admin: 09/28/16 09:05 Dose: 400 mg - Labs Labs: 09/26/16 09:15 09/26/16 09:15
[2016-09-28 09:31] LABS: BASO % 1.7 % (0.0-2.0); EOS # 0.1 K/uL (0.0-0.7); EOS % 7.2 % (0.0-4.0); HEMATOCRIT 24.4 % (35.0-51.0); LYMPH # 0.3 K/uL (1.0-4.3); MEAN CELL VOLUME 90.1 fl (80.0-94.0); MEAN CORPUSCULAR HEMOGLOBIN 30.1 pg (27.0-31.0); MEAN CORPUSCULAR HGB CONC 33.4 g/dL (33.0-37.0); MEAN PLATELET VOLUME 8.8 fl (7.2-11.7); MONO # 0.1 K/uL (0.0-0.8); MONO % 9.1 % (0.0-10.0); NEUT # 0.8 K/uL (1.8-7.0); NRBC % 0.4 % (0.0-0.0); RED CELL DISTRIBUTION WIDTH 16.9 % (11.5-14.5)
[2016-09-28 09:33] LABS: CHLORIDE 110 mmol/L (98-107); POTASSIUM 3.7 MMOL/L (3.6-5.0); SODIUM 144 mmol/l (132-148)
[2016-09-28 09:36] LABS: BLOOD UREA NITROGEN 23 mg/dl (9-20); CARBON DIOXIDE 23 mmol/L (22-30); GFR AFRICAN-AMERICAN > 60
[2016-09-28 09:37] LABS: CALCIUM 8.5 mg/dL (8.4-10.2); MAGNESIUM 1.8 MG/DL (1.6-2.3)
[2016-09-28 09:51] LABS: GLUCOSE,RANDOM 97 mg/dL (75-110)
[2016-09-28 09:53] LABS: WHITE BLOOD COUNT 1.2 K/uL (4.8-10.8)
--- NOTE | 2016-09-28 10:21 | PN ---
DATE: 09/28/2016 ATTENDING: The patient appears comfortable, tolerating chemotherapy, voices no specific complaints. PHYSICAL EXAMINATION: VITAL SIGNS: Stable. Temperature is 98.1, respirations 20, pulse 69, blood pressure is 123/56. LUNGS: Clear. HEART: Regular rhythm. ABDOMEN: Soft, slightly tender. EXTREMITIES: No edema. PLAN: Continue current therapy. Likely discharge today in improved condition. MEDICATIONS ON DISCHARGE: Include aspirin 81 daily, nadolol or Corgard 40 daily, losartan 100 mg at bedtime, Imodium 2-4 mg q.i.d. as needed, atorvastatin 40 mg daily, insulin Levemir 30 units daily, a mlodipine 5 mg at bedtime, Pepcid 20 b.i.d., Pletal 50 mg daily, Tylenol q. 6 hours as needed, theophylline 400 mg daily, ascorbic acid 250 daily with Hematogen vitamin pill with iron and insulin lispro, Humalog before meals and at bedtime as per sliding scale. DIET: Should be regular. FOLLOWUP: With Dr. Mills. CONDITION: Improved. PROGNOSIS: Guarded. ACTIVITY: As tolerated. Sylvain Durán MD cc: [id number] TT: 09/28/2016 10:21:09 Confirmation # [id number] Dictation # [id number]
[2016-09-28 14:10] VITALS: BP 144/82
--- NOTE | 2016-09-28 20:51 | CP.PCM.CON ---
History of Present Illness - History of Present Illness History of Present Illness: Pt seen this AM for painful thickened elongated nails of both feet chronic in nature . Review of Systems - Constitutional Constitutional: As Per HPI - EENT Eyes: As Per HPI Ears: As Per HPI Nose/Mouth/Throat: As Per HPI - Cardiovascular Cardiovascular: As Per HPI - Respiratory Respiratory: As Per HPI - Gastrointestinal Gastrointestinal: As Per HPI - Genitourinary Genitourinary: As Per HPI - Integumentary Integumentary: As Per HPI - Neurological Neurological: As Per HPI - Endocrine Endocrine: As Per HPI - Hematologic/Lymphatic Hematologic: As Per HPI 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,L eye glass) Hx Cataracts: Yes Hx Glaucoma: Yes Other/Comment: Left eye prothesis - RENAL Hx Chronic Kidney Disease: No - ENDOCRINE/METABOLIC Hx Endocrine Disorders: Yes Hx Diabetes Mellitus Type 2: Yes Other/Comment: diabetic neuropathy - HEMATOLOGICAL/ONCOLOGICAL Hx Blood Disorders: Yes Hx AIDS: No Hx Anemia: Yes Hx Blood Transfusions: Yes Hx Blood Transfusion Reaction: No Hx Cancer: Yes (colon) Hx Chemotherapy: Yes Other/Comment: HX MRSA CYST ON SHOULDER - INTEGUMENTARY Hx Dermatological Problems: Yes - MUSCULOSKELETAL/RHEUMATOLOGICAL Hx Musculoskeletal Disorders: Yes Hx Arthritis: Yes Hx Falls: Yes - GASTROINTESTINAL Hx Gastrointestinal Disorders: Yes Hx Bowel Surgery: Yes (colon resection) Hx Gastroesophageal Reflux: Yes Hx Ulcer: Yes (gastric) Other/Comment: HIATAL HERNIA - GENITOURINARY/GYNECOLOGICAL Hx Genitourinary Disorders: No - PSYCHIATRIC Hx Psychophysiologic Disorder: Yes Hx Anxiety: Yes Hx Emotional Abuse: No Hx Physical Abuse: No Hx Substance Use: No - SURGICAL HISTORY Hx Surgeries: Yes Hx Angioplasty: Yes Hx Cataract Extraction: Yes Hx Cardiac Catheterization: Yes (WITH STENT PLACEMENT X 8) Hx Coronary Stent: Yes Hx Tonsillectomy: Yes Other/Comment: NASAL DEVIATED SEPTUM REPAIR 1974. RADIOFREQUENCY ABLATION NERVES BACK 2012. COLON RESECTION 11/2013. DAVID CATH INSERTION 11/2013 & REMOVED DUE TO MRSA - ANESTHESIA Hx Anesthesia: Yes Hx Anesthesia Reactions: No Hx Malignant Hyperthermia: No Meds Allergies/Adverse Reactions: Allergies Allergy/AdvReac Type Severity Reaction Status Date / Time latex Allergy Mild RASH Verified 09/12/16 08:16 codeine Allergy HALLUCINATI Verified 09/12/16 08:16 ON cefepime HCl [From Maxipime] AdvReac Severe Confusion Verified 09/12/16 08:16 gabapentin [From Neurontin] AdvReac Confusion Verified 09/12/16 08:16 morphine AdvReac Hallucinati Verified 09/12/16 08:16 on oxycodone HCl [From Percocet] AdvReac Hallucinati Verified 09/12/16 08:16 on Physical Exam - Extremities Exam Extremities exam: Positive for: full ROM, pedal edema Additional comments: O/Painful Thickened elongated mycotic nails with sub ungual debris 1-5 b/l. DP/PT pulses non-palpable b/l .Cap return WNL b/l DM neuropathy with burning and paresthesias b/l. No gross orthopedic abnormalities b/l. Results - Vital Signs Recent Vital Signs: Last Vital Signs Temp 98.1 F 09/28/16 08:19 Pulse 69 09/28/16 08:19 Resp 20 09/28/16 08:19 BP 144/82 09/28/16 09:30 Pulse Ox 100 09/28/16 08:19 - Labs Result Diagrams: 09/28/16 09:24 09/28/16 09:24 Labs: Laboratory Results - last 24 hr 09/27/16 09/28/16 09/28/16 21:14 08:15 09:24 WBC 1.2 L* D RBC 2.71 L Hgb 8.2 L Hct 24.4 L MCV 90.1 MCH 30.1 MCHC 33.4 RDW 16.9 H Plt Count 115 L MPV 8.8 Neut % (Auto) 61.0 Lymph % (Auto) 21.0 [place] % (Auto) 9.1 Eos % (Auto) 7.2 H Baso % (Auto) 1.7 Neut # 0.8 L Lymph # 0.3 L [place] # 0.1 Eos # 0.1 Baso # 0.0 Sodium 144 Potassium 3.7 Chloride 110 H Carbon Dioxide 23 Anion Gap 15 BUN 23 H Creatinine 1.1 Est GFR ( Amer) > 60 Est GFR (Non-Af Amer) > 60 POC Glucose (mg/dL) 127 H 115 H Random Glucose 97 Calcium 8.5 Magnesium 1.8 09/28/16 12:03 WBC RBC Hgb Hct MCV MCH MCHC RDW Plt Count MPV Neut % (Auto) Lymph % (Auto) [place] % (Auto) Eos % (Auto) Baso % (Auto) Neut # Lymph # [place] # Eos # Baso # Sodium Potassium Chloride Carbon Dioxide Anion Gap BUN Creatinine Est GFR ( Amer) Est GFR (Non-Af Amer) POC Glucose (mg/dL) 133 H Random Glucose Calcium Magnesium Assessment & Plan - Assessment and Plan (Free Text) Assessment: a/Tinea ungium /DM neuropathy b/l Plan: p/aseptic debridement of 10 mycotic nails .
== END 2016-09-28 15:17 | disposition home or self-care (01) | DRG 847 ==
LOC: H.MEDSURG1 08:29
PROVIDERS: ADMIT Internal Medicine; ATTEND Internal Medicine
PROC: 3E04305 Introduction of Other Antineoplastic into Central Vein, Percutaneous Approach (ICD-10-PCS; principal; 2016-09-26)
PROC: 0HBRXZZ Excision of Toe Nail, External Approach (ICD-10-PCS; 2016-09-28)
DX: Z51.11 Encounter for antineoplastic chemotherapy (principal); C18.9 Malignant neoplasm of colon, unspecified; E10.40 Type 1 diabetes mellitus with diabetic neuropathy, unspecified; J44.9 Chronic obstructive pulmonary disease, unspecified; D69.59 Other secondary thrombocytopenia; D64.81 Anemia due to antineoplastic chemotherapy; E10.319 Type 1 diabetes mellitus with unspecified diabetic retinopathy without macular edema; I10 Essential (primary) hypertension; K21.9 Gastro-esophageal reflux disease without esophagitis; I25.10 Atherosclerotic heart disease of native coronary artery without angina pectoris; Z95.5 Presence of coronary angioplasty implant and graft; Z87.891 Personal history of nicotine dependence; M19.90 Unspecified osteoarthritis, unspecified site; G89.29 Other chronic pain; M54.9 Dorsalgia, unspecified; H54.8 Legal blindness, as defined in USA; I25.2 Old myocardial infarction; H40.9 Unspecified glaucoma; K44.9 Diaphragmatic hernia without obstruction or gangrene; T45.1X5A Adverse effect of antineoplastic and immunosuppressive drugs, initial encounter; B35.1 Tinea unguium

== ENCOUNTER 2016-11-01 08:42 | Inpatient (IN) | payer MEDICARE, BC ==
--- NOTE | 2016-11-01 09:14 | CP.PCM.HP ---
History of Present Illness - History of Present Illness History of Present Illness: Chief Complaint : for chemotherapy HPI: 76 y/o gent with hx of HTN, DM, Legally Blind,COPD,CAD, GERD and Metastatic Colon CA s/p Colon resection and Chemotherapy, came in for scheduled chemotherapy. Patient was diagnosed to have Colon CA 3 years ago. He then underwent Surgery and Chemotherapy and was in remission. Until afew months ago , he had recurrence of his Colon CA and now with metastasis. He was then restarted on Chemotherapy. he has been following up with dr Salvador heredia for this. He came today for another cycle of his chemotherapy. He states that he is tolerating chemotherapy except for occasional diarrhea and sometimes constipation. Denies fever. no CP, no SOB, no cough and no abd pain. Code Status : Full Surrogate Decision maker : Rhea Present on Admission - Present on Admission Any Indicators Present on Admission: No Review of Systems - Review of Systems All systems: reviewed and no additional remarkable complaints except - Constitutional Constitutional: absent: Fever, Headache - EENT Eyes: Discharge (left eye crusting), Loss of Vision Nose/Mouth/Throat: absent: Nasal Congestion, Sore Throat - Cardiovascular Cardiovascular: absent: Leg Edema, Palpitations - Respiratory Respiratory: absent: Cough, Dyspnea, Hemoptysis - Gastrointestinal Gastrointestinal: absent: Abdominal Pain, Nausea, Vomiting - Genitourinary Genitourinary: absent: Dysuria, Hematuria, Pyuria - Musculoskeletal Musculoskeletal: absent: Abnormal Gait, Back Pain - Integumentary Integumentary: absent: Bleeding Lesions, Rash - Neurological Neurological: absent: Dizziness, Focal Weakness - Psychiatric Psychiatric: Anxiety. absent: Depression - Endocrine Endocrine: absent: Polydipsia, Polyphagia, Polyuria - Hematologic/Lymphatic Hematologic: absent: Easy Bleeding, Easy Bruising Past Patient History - Infectious Disease Hx of Infectious Diseases: None - Tetanus Immunizations Tetanus Immunization: Unknown - Past Medical History & Family History Past Medical History?: Yes Past Family History: Reviewed and not pertinent - Past Social History Smoking Status: Former Smoker Chewing Tobacco Use: No Cigar Use: No Alcohol: None Drugs: Denies Home Situation {Lives}: With Family - CARDIAC Hx Cardiac Disorders: Yes Hx Hypertension: Yes Hx Peripheral Edema: No Other/Comment: CAD s/p stent - PULMONARY Hx Respiratory Disorders: Yes Hx Chronic Obstructive Pulmonary Disease (COPD): Yes Hx Emphysema: Yes - NEUROLOGICAL Hx Neurological Disorder: No - HEENT Hx HEENT Problems: Yes 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,L eye glass) Hx Cataracts: Yes Hx Glaucoma: Yes Other/Comment: Left eye prothesis - RENAL Hx Chronic Kidney Disease: No - ENDOCRINE/METABOLIC Hx Endocrine Disorders: Yes Hx Diabetes Mellitus Type 2: Yes Other/Comment: diabetic neuropathy - HEMATOLOGICAL/ONCOLOGICAL Hx Blood Disorders: Yes Hx AIDS: No Hx Anemia: Yes Hx Blood Transfusions: Yes Hx Blood Transfusion Reaction: No Hx Bruising: Yes Hx Cancer: Yes (colon) Hx Chemotherapy: Yes Other/Comment: HX MRSA CYST ON SHOULDER - INTEGUMENTARY Hx Dermatological Problems: No - MUSCULOSKELETAL/RHEUMATOLOGICAL Hx Musculoskeletal Disorders: Yes Hx Arthritis: Yes - GASTROINTESTINAL Hx Gastrointestinal Disorders: Yes Hx Bowel Surgery: Yes (colon resection) Hx Gastroesophageal Reflux: Yes Hx Ulcer: Yes (gastric) Other/Comment: HIATAL HERNIA - GENITOURINARY/GYNECOLOGICAL Hx Genitourinary Disorders: No - PSYCHIATRIC Hx Psychophysiologic Disorder: Yes Hx Anxiety: Yes Hx Emotional Abuse: No Hx Physical Abuse: No Hx Substance Use: No - SURGICAL HISTORY Hx Surgeries: Yes Hx Angioplasty: Yes Hx Cataract Extraction: Yes Hx Cardiac Catheterization: Yes (WITH STENT PLACEMENT X 8) Hx Coronary Stent: Yes Hx Tonsillectomy: Yes Other/Comment: NASAL DEVIATED SEPTUM REPAIR 1974. RADIOFREQUENCY ABLATION NERVES BACK 2012. COLON RESECTION 11/2013. DAVID CATH INSERTION 11/2013 & REMOVED DUE TO MRSA. Left Eye Prosthesis - ANESTHESIA Hx Anesthesia: Yes Hx Anesthesia Reactions: No Hx Malignant Hyperthermia: No Meds Allergies/Adverse Reactions: Allergies Allergy/AdvReac Type Severity Reaction Status Date / Time latex Allergy Mild RASH Verified 09/12/16 08:16 codeine Allergy HALLUCINATI Verified 09/12/16 08:16 ON cefepime HCl [From Maxipime] AdvReac Severe Confusion Verified 09/12/16 08:16 gabapentin [From Neurontin] AdvReac Confusion Verified 09/12/16 08:16 morphine AdvReac Hallucinati Verified 09/12/16 08:16 on oxycodone HCl [From Percocet] AdvReac Hallucinati Verified 09/12/16 08:16 on Physical Exam - Constitutional Appears: No Acute Distress - Head Exam Head Exam: ATRAUMATIC, NORMAL INSPECTION, NORMOCEPHALIC - Eye Exam Eye Exam: Conjunctival injection Additional comments: eye prosthesis legally blind - ENT Exam ENT Exam: Mucous Membranes Moist, Normal External Ear Exam - Neck Exam Neck exam: Positive for: Full Rom. Negative for: Meningismus - Respiratory Exam Respiratory Exam: NORMAL BREATHING PATTERN. absent: Respiratory Distress - Cardiovascular Exam Cardiovascular Exam: REGULAR RHYTHM, +S1, +S2 - GI/Abdominal Exam GI & Abdominal Exam: Normal Bowel Sounds, Soft. absent: Tenderness - Extremities Exam Extremities exam: Positive for: normal capillary refill, pedal pulses present. Negative for: calf tenderness, pedal edema - Back Exam Back exam: FULL ROM. absent: CVA tenderness (L), CVA tenderness (R) - Neurological Exam Neurological exam: Alert, CN II-XII Intact, Oriented x3, Reflexes Normal - Psychiatric Exam Psychiatric exam: Normal Affect, Normal Mood - Skin Skin Exam: Dry, Normal Color, Warm Results - Labs Result Diagrams: 11/01/16 09:43 11/01/16 09:43 Assessment & Plan (1) Colon adenocarcinoma Status: Chronic (2) Blepharitis of both upper and lower eyelid of left eye Status: Acute (3) Legally blind Status: Chronic (4) DM type 2 (diabetes mellitus, type 2) Status: Chronic (5) HTN (hypertension) Status: Chronic (6) CAD (coronary artery disease) Status: Chronic (7) COPD (chronic obstructive pulmonary disease) Status: Chronic (8) DVT prophylaxis Status: Acute - Assessment and Plan (Free Text) Assessment: 76 y/o gent with hx of HTN, CAD, COPD, DM II, and Colon Cancer ( hx of Colon Resection and Chemotherapy) came for his next cycle of chemotherapy. (1) Colon Cancer s/p Colon resection and Chemotherapy, hx of metastatic disease Oncology consult : Dr Heredia Plan for chemotherapy (2) Blepharitis of both upper and lower eyelid of left eye Status: Acute Pt complains of left lid itching and redness and some crusting/discharge start Oculox eye win (3) Legally blind Status: Chronic hx of left eye prothesis (4) DM type 2 (diabetes mellitus, type 2) Status: Chronic accucheck q ACHS cont Levemir- states that he takes bet 10-30 units depending on his glucose readings wants Regular diet - does not want consistent CHO diet (5) HTN (hypertension) Status: Chronic cont Norvasc, Nadolol and Cozaar (6) CAD (coronary artery disease) Status: Chronic Hx of Stent placement cont ASA, ARB and Statin (7) COPD (chronic obstructive pulmonary disease) Status: Chronic cont Theophylline - level ok Neb treatment prn (8) DVT prophylaxis Status: Acute SCD Pt refuses any anticoag, Decision To Admit - Pt Status Changed To: Hospital Disposition Of: Inpatient - Admit Certification Admit to Inpatient:: After my assessment, the patient will require hospitalization for at least two midnights. This is because of the severity of symptoms shown, intensity of services needed, and/or the medical risk in this patient being treated as an outpatient. - . Bed Request Type: Med/Surg Admitting Physician: Olga Shah
[2016-11-01] MEDS ORDERED: Lidocaine/Prilocaine CREAM 5GM TP ONE (09:29)
[2016-11-01 09:49] LABS: BASO # 0.1 K/uL (0.0-0.2); BASO % 1.3 % (0.0-2.0); EOS # 2.5 K/uL (0.0-0.7); EOS % 22.7 % (0.0-4.0); HEMATOCRIT 29.5 % (35.0-51.0); LYMPH # 1.4 K/uL (1.0-4.3); MEAN CELL VOLUME 87.2 fl (80.0-94.0); MEAN CORPUSCULAR HEMOGLOBIN 29.3 pg (27.0-31.0); MEAN CORPUSCULAR HGB CONC 33.6 g/dL (33.0-37.0); MEAN PLATELET VOLUME 8.2 fl (7.2-11.7); MONO % 9.5 % (0.0-10.0); NEUT # 5.9 K/uL (1.8-7.0); NEUT % 53.5 % (50.0-75.0); NRBC % 0.1 % (0.0-0.0); PLATELET COUNT 152 K/uL (130-400); RED CELL DISTRIBUTION WIDTH 15.7 % (11.5-14.5)
[2016-11-01 10:00] LABS: ALB/GLOB RATIO 1.3 (1.0-2.1); ALKALINE PHOSPHATASE 85 U/L (38-126); ALT/SGPT 27 U/L (21-72); AST/SGOT 22 U/L (17-59); BILIRUBIN,TOTAL 0.3 mg/dl (0.2-1.3); BLOOD UREA NITROGEN 14 mg/dl (9-20); CALCIUM 9.4 mg/dL (8.4-10.2); CARBON DIOXIDE 26 mmol/L (22-30); CHLORIDE 106 mmol/L (98-107); GFR AFRICAN-AMERICAN > 60; GLUCOSE,RANDOM 156 mg/dL (75-110); POTASSIUM 3.7 MMOL/L (3.6-5.0); SODIUM 142 mmol/l (132-148); TOTAL PROTEIN 6.3 G/DL (6.3-8.2)
[2016-11-01 10:04] LABS: PARTIAL THROMBOPLASTIN TIME 33.1 SECONDS (23.3-32.5)
--- NOTE | 2016-11-01 10:18 | CP.PCM.CON ---
History of Present Illness - History of Present Illness History of Present Illness: This is a 76 yrs old male who was fiagnosed to have a colon cancer in the descending colon as well as the transverse colon. After surgery he had positive nodes and and was startewd on chemotherapy which he got for 12 treatments. he did well for a while but then eventually he developed recurrent disease at the site of anastomosis but growing out .There were also some nodules in the lung and some in the liver. He was restarted on chemo and the only side effect he had was some diarrhea which was controlled easily. He had a repeat Pet scan which showed no more lung or liver lesions, but the colon mass was still there. We are now going to start him on FOLFIRI and bevacizumab. He has a past h/o DM, , CAD, HTN and is legally blind. Past Patient History - Infectious Disease Hx of Infectious Diseases: None - Past Medical History & Family History Past Medical History?: Yes - Past Social History Smoking Status: Former Smoker - CARDIAC Hx Peripheral Edema: No - PULMONARY Hx Respiratory Disorders: Yes Hx Chronic Obstructive Pulmonary Disease (COPD): Yes Hx Emphysema: Yes - NEUROLOGICAL Hx Neurological Disorder: No - HEENT Hx HEENT Problems: Yes 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,L eye glass) Hx Cataracts: Yes Hx Glaucoma: Yes Other/Comment: Left eye prothesis - RENAL Hx Chronic Kidney Disease: No - ENDOCRINE/METABOLIC Hx Endocrine Disorders: Yes Hx Diabetes Mellitus Type 2: Yes Other/Comment: diabetic neuropathy - HEMATOLOGICAL/ONCOLOGICAL Hx Blood Disorders: Yes Hx AIDS: No Hx Anemia: Yes Hx Blood Transfusions: Yes Hx Blood Transfusion Reaction: No Hx Cancer: Yes (colon) Hx Chemotherapy: Yes Other/Comment: HX MRSA CYST ON SHOULDER - INTEGUMENTARY Hx Dermatological Problems: Yes - MUSCULOSKELETAL/RHEUMATOLOGICAL Hx Musculoskeletal Disorders: Yes Hx Arthritis: Yes Hx Falls: Yes - GASTROINTESTINAL Hx Gastrointestinal Disorders: Yes Hx Bowel Surgery: Yes (colon resection) Hx Gastroesophageal Reflux: Yes Hx Ulcer: Yes (gastric) Other/Comment: HIATAL HERNIA - GENITOURINARY/GYNECOLOGICAL Hx Genitourinary Disorders: No - PSYCHIATRIC Hx Psychophysiologic Disorder: Yes Hx Anxiety: Yes Hx Emotional Abuse: No Hx Physical Abuse: No Hx Substance Use: No - SURGICAL HISTORY Hx Surgeries: Yes Hx Angioplasty: Yes Hx Cataract Extraction: Yes Hx Cardiac Catheterization: Yes (WITH STENT PLACEMENT X 8) Hx Coronary Stent: Yes Hx Tonsillectomy: Yes Other/Comment: NASAL DEVIATED SEPTUM REPAIR 1974. RADIOFREQUENCY ABLATION NERVES BACK 2012. COLON RESECTION 11/2013. DAVID CATH INSERTION 11/2013 & REMOVED DUE TO MRSA - ANESTHESIA Hx Anesthesia: Yes Hx Anesthesia Reactions: No Hx Malignant Hyperthermia: No Meds Allergies/Adverse Reactions: Allergies Allergy/AdvReac Type Severity Reaction Status Date / Time latex Allergy Mild RASH Verified 09/12/16 08:16 codeine Allergy HALLUCINATI Verified 09/12/16 08:16 ON cefepime HCl [From Maxipime] AdvReac Severe Confusion Verified 09/12/16 08:16 gabapentin [From Neurontin] AdvReac Confusion Verified 09/12/16 08:16 morphine AdvReac Hallucinati Verified 09/12/16 08:16 on oxycodone HCl [From Percocet] AdvReac Hallucinati Verified 09/12/16 08:16 on - Medications Medications: Current Medications Acetaminophen (Tylenol 325mg Tab) 650 mg PO Q4 PRN PRN Reason: Pain, moderate (4-7) Amlodipine Besylate (Norvasc) 5 mg PO HS [facility] Ascorbic Acid (Vitamin C 250 Mg Tab) 250 mg PO DAILY [facility] Aspirin (Ecotrin) 81 mg PO DAILY [facility] Atorvastatin Calcium (Lipitor) 40 mg PO HS [facility] Cilostazol (Pletal) 50 mg PO DAILY [facility] Famotidine (Pepcid) 20 mg PO BID [facility] Famotidine (Pepcid) 20 mg IVP STAT STA Stop: 11/01/16 09:33 Ferrous Sulfate (Feosol) 325 mg PO BID [facility] Diphenhydramine HCl 25 mg/ (Sodium Chloride) 50.5 mls @ 101 mls/hr IVPB ONCE ONE Stop: 11/01/16 09:58 Dexamethasone 10 mg/ Sodium (Chloride) 51 mls @ 102 mls/hr IVPB ONCE ONE Stop: 11/01/16 09:58 Sodium Chloride (Sodium Chloride 0.9%) 1,000 mls @ 80 mls/hr IV .[id number] [facility] Ondansetron HCl 16 mg/ Sodium (Chloride) 58 mls @ 116 mls/hr IVPB ONCE ONE Stop: 11/01/16 09:58 Bevacizumab 300 mg/ Sodium (Chloride) 262 mls @ 0 mls/hr IV ONCE ONE PRN Reason: As Directed Stop: 11/01/16 09:39 Irinotecan HCl 306 mg/ Sodium (Chloride) 265.3 mls @ 0 mls/hr IV ONCE ONE PRN Reason: As Directed Stop: 11/01/16 09:35 Fosaprepitant 150 mg/ Sodium (Chloride) 250 mls @ 0 mls/hr IVPB ONCE ONE PRN Reason: As Directed Stop: 11/01/16 09:34 Fluorouracil 680 mg/ Sodium (Chloride) 113.6 mls @ 0 mls/hr IV ONCE ONE PRN Reason: As Directed Stop: 11/01/16 09:38 Leucovorin Calcium 680 mg/ (Sodium Chloride) 250 mls @ 0 mls/hr IVPB ONCE ONE PRN Reason: As Directed Stop: 11/01/16 09:37 Fluorouracil 4,080 mg/ Sodium (Chloride) 1,081.6 mls @ 0 mls/hr IV ONCE ONE PRN Reason: As Directed Stop: 11/01/16 09:41 Insulin Detemir (Levemir) 10 units SC HS [facility] Lidocaine/Prilocaine (Lidocaine/Prilocaine 2.5%-2.5%) 1 applic TP ONCE ONE Stop: 11/01/16 09:30 Loperamide HCl (Imodium) 2 mg PO Q1 PRN PRN Reason: Diarrhea Loperamide HCl (Imodium) 4 mg PO ONCE PRN PRN Reason: Diarrhea Losartan Potassium (Cozaar) 100 mg PO HS [facility] Nadolol (Corgard) 40 mg PO DAILY [facility] Ofloxacin (Ocuflox Ophth 0.3%) 2 drop OS Q2 [facility] Sucralfate (Carafate Oral Susp) 1 gm PO QID [facility] Theophylline (Uniphyl) 400 mg PO DAILY [facility] Physical Exam - Additional Findings Additional findings: Physical exam; Alert,well oriented in no acute distress neck; Supple, no adenopathy Chest; Clear, no rales or rhonchi Heart; RSR, no murmur Abd; Soft, no mass, no h/s megaly Results - Labs Result Diagrams: 11/01/16 09:43 11/01/16 09:43 Labs: Laboratory Results - last 24 hr 11/01/16 11/01/16 09:43 09:43 WBC 11.0 H D RBC 3.39 L Hgb 9.9 L Hct 29.5 L MCV 87.2 D MCH 29.3 MCHC 33.6 RDW 15.7 H Plt Count 152 MPV 8.2 Neut % (Auto) 53.5 Lymph % (Auto) 13.0 L [place] % (Auto) 9.5 Eos % (Auto) 22.7 H Baso % (Auto) 1.3 Neut # 5.9 Lymph # 1.4 [place] # 1.0 H Eos # 2.5 H Baso # 0.1 Sodium 142 Potassium 3.7 Chloride 106 Carbon Dioxide 26 Anion Gap 13 BUN 14 Creatinine 1.0 Est GFR ( Amer) > 60 Est GFR (Non-Af Amer) > 60 Random Glucose 156 H Calcium 9.4 Total Bilirubin 0.3 AST 22 ALT 27 Alkaline Phosphatase 85 Total Protein 6.3 Albumin 3.5 Globulin 2.8 Albumin/Globulin Ratio 1.3 Assessment & Plan - Assessment and Plan (Free Text) Assessment: Impression; Colon cancer recurrent disease Plan: Plan; Will give chemotherapy with Irinotecan, leucovorin, , bevacizumab, fluorouracil first as a bolus then as a 44 hrs continued infusion. - Date & Time Date: 11/01/16 Time: 10:25
[2016-11-01 10:22] LABS: RBC URINE < 1 /hpf (0-3); URINE BACTERIA RARE (<OCC); URINE BILIRUBIN NEGATIVE (NEGATIVE); URINE BLOOD NEGATIVE (NEGATIVE); URINE COLOR STRAW (YELLOW); URINE GLUCOSE (UA) NEG (Normal); URINE KETONE NEGATIVE (NEGATIVE); URINE LEUKOCYTE ESTERASE NEG Leu/uL (Negative); URINE PROTEIN 100 mg/dL (NEGATIVE); URINE UROBILINOGEN 0.2-1.0 mg/dL (0.2-1.0); WBC URINE 1 /hpf (0-5)
[2016-11-01] MEDS ORDERED: Dexamethasone 10 MG in Sodium Chloride 0.9% 50 ML IVPB ONE (10:45)
[2016-11-01] MEDS: Ofloxacin Ophth 0.3% Soln OS SCH ×6 (11:10→22:31)
[2016-11-01] MEDS ORDERED: IRINOTECAN IV ONE ×2 (11:30→11:45)
[2016-11-01] MEDS ORDERED: SODIUM CHLORIDE 0.9% IVPB ONE ×2 (11:30→11:45)
[2016-11-01] MEDS ORDERED: SODIUM CHLORIDE 0.9% IV ONE ×5 (11:30→14:00)
[2016-11-01] MEDS ORDERED: LEUCOVORIN CALCIUM IVPB ONE ×2 (11:30→11:45)
[2016-11-01 12:16] LABS: BASOPHIL 1 % (0-2); EOSINOPHIL 25 % (0-7); MYELOCYTE 1 % (0-0); NEUTROPHIL 46 % (42-75); REACTIVE LYMPHOCYTES 3 % (0-0); TOTAL CELLS COUNTED 100
[2016-11-01 12:20] LABS: GIANT PLATELETS PRESENT
[2016-11-01] MEDS ORDERED: Fosaprepitant 150 MG in Sodium Chloride 0.9% 250 ML IVPB ONE (13:30)
[2016-11-01] MEDS ORDERED: FLUOROURACIL IV ONE ×2 (13:30→14:00)
[2016-11-01] MEDS ORDERED: BEVACIZUMAB IV ONE (13:30)
[2016-11-01] MEDS: Sucralfate 1 gm/10 ml Oral Susp UD PO SCH ×3 (17:23→21:39)
[2016-11-01] MEDS: Insulin Detemir 100 Units/ml Inj SC SCH (21:50)
[2016-11-02] MEDS: Ofloxacin Ophth 0.3% Soln OS SCH ×13 (00:15→22:21)
[2016-11-02] MEDS: Sucralfate 1 gm/10 ml Oral Susp UD PO SCH ×4 (07:33→20:31)
[2016-11-02 08:44] LABS: BASO % 0.4 % (0.0-2.0); HEMATOCRIT 27.3 % (35.0-51.0); LYMPH # 0.6 K/uL (1.0-4.3); LYMPH % 11.9 % (20.0-40.0); MEAN CELL VOLUME 86.5 fl (80.0-94.0); MEAN CORPUSCULAR HEMOGLOBIN 28.8 pg (27.0-31.0); MEAN CORPUSCULAR HGB CONC 33.2 g/dL (33.0-37.0); MEAN PLATELET VOLUME 8.4 fl (7.2-11.7); MONO # 0.2 K/uL (0.0-0.8); MONO % 3.3 % (0.0-10.0); NEUT # 4.2 K/uL (1.8-7.0); NEUT % 84.4 % (50.0-75.0); RED CELL DISTRIBUTION WIDTH 15.5 % (11.5-14.5); WHITE BLOOD COUNT 4.9 K/uL (4.8-10.8)
[2016-11-02 08:58] LABS: BLOOD UREA NITROGEN 22 mg/dl (9-20); CALCIUM 9.1 mg/dL (8.4-10.2); CARBON DIOXIDE 23 mmol/L (22-30); CHLORIDE 107 mmol/L (98-107); GFR AFRICAN-AMERICAN > 60; GLUCOSE,RANDOM 279 mg/dL (75-110); SODIUM 140 mmol/l (132-148)
[2016-11-02] MEDS: Cilostazol 50 mg Tab UD PO SCH (09:15)
[2016-11-02] MEDS: THEOPHYLLINE 400 MG T24(UNIPHYL) PO SCH (09:15)
--- NOTE | 2016-11-02 10:16 | CP.PCM.PN ---
Subjective - Date & Time of Evaluation Date of Evaluation: 11/02/16 Time of Evaluation: 10:14 - Subjective Subjective: Pt had only one episode of diarrhea yesterday afetr the chemo. Is doing well today. no nausea or vomiting Objective - Vital Signs/Intake and Output Vital Signs (last 24 hours): Temp Pulse Resp BP Pulse Ox 98.2 F 77 20 144/71 98 11/02/16 07:49 11/02/16 07:49 11/02/16 07:49 11/02/16 07:49 11/02/16 07:49 - Medications Medications: Current Medications Acetaminophen (Tylenol 325mg Tab) 650 mg PO Q4 PRN PRN Reason: Pain, moderate (4-7) Last Admin: 11/02/16 02:50 Dose: 650 mg Amlodipine Besylate (Norvasc) 5 mg PO [facility] Last Admin: 11/01/16 21:41 Dose: 5 mg Ascorbic Acid (Vitamin C 250 Mg Tab) 250 mg PO DAILY [facility] Last Admin: 11/02/16 09:16 Dose: 250 mg Aspirin (Ecotrin) 81 mg PO DAILY [facility] Last Admin: 11/02/16 09:13 Dose: 81 mg Atorvastatin Calcium (Lipitor) 40 mg PO [facility] Last Admin: 11/01/16 21:41 Dose: 40 mg Cilostazol (Pletal) 50 mg PO DAILY [facility] Last Admin: 11/02/16 09:15 Dose: 50 mg Famotidine (Pepcid) 20 mg PO BID [facility] Last Admin: 11/02/16 09:15 Dose: 20 mg Ferrous Sulfate (Feosol) 325 mg PO BID [facility] Last Admin: 11/02/16 09:15 Dose: 325 mg Sodium Chloride (Sodium Chloride 0.9%) 1,000 mls @ 80 mls/hr IV .[id number] [facility] Fluorouracil 4,080 mg/ Sodium (Chloride) 1,081.6 mls @ 24.582 mls/hr IV ONCE ONE PRN Reason: As Directed Stop: 11/03/16 09:59 Last Admin: 11/01/16 18:43 Dose: 24.582 mls/hr Insulin Detemir (Levemir) 10 units SC [facility] Last Admin: 11/01/16 21:50 Dose: 10 units Loperamide HCl (Imodium) 2 mg PO Q1 PRN PRN Reason: Diarrhea Loperamide HCl (Imodium) 4 mg PO ONCE PRN PRN Reason: Diarrhea Last Admin: 11/01/16 19:35 Dose: 4 mg Losartan Potassium (Cozaar) 100 mg PO HS [facility] Last Admin: 11/01/16 21:40 Dose: 100 mg Nadolol (Corgard) 40 mg PO DAILY [facility] Last Admin: 11/02/16 09:13 Dose: 40 mg Ofloxacin (Ocuflox Ophth 0.3%) 2 drop OS Q2 [facility] Last Admin: 11/02/16 10:08 Dose: 2 drop Sucralfate (Carafate Oral Susp) 1 gm PO QID [facility] Last Admin: 11/02/16 09:13 Dose: Not Given Theophylline (Uniphyl) 400 mg PO DAILY [facility] Last Admin: 11/02/16 09:15 Dose: 400 mg - Labs Labs: 11/02/16 08:32 11/02/16 07:10 PT 11.4 SECONDS (9.6-11.2) H 11/01/16 09:43 INR 1.10 (0.92-1.08) H 11/01/16 09:43 APTT 33.1 SECONDS (23.3-32.5) H 11/01/16 09:43
[2016-11-02] MEDS ORDERED: Insulin Lispro (humaLOG) 100 Units/ml Inj SC STA (13:26)
--- NOTE | 2016-11-02 14:39 | CP.PCM.PN ---
Subjective - Date & Time of Evaluation Date of Evaluation: 11/02/16 Time of Evaluation: 14:00 - Subjective Subjective: No fever eyelid redness and crusting better no CP no SOB no abd pain no diarrhea Objective - Vital Signs/Intake and Output Vital Signs (last 24 hours): Temp Pulse Resp BP Pulse Ox 98.2 F 77 20 144/71 98 11/02/16 07:49 11/02/16 07:49 11/02/16 07:49 11/02/16 07:49 11/02/16 07:49 - Medications Medications: Current Medications Acetaminophen (Tylenol 325mg Tab) 650 mg PO Q4 PRN PRN Reason: Pain, moderate (4-7) Last Admin: 11/02/16 02:50 Dose: 650 mg Amlodipine Besylate (Norvasc) 5 mg PO [facility] Last Admin: 11/01/16 21:41 Dose: 5 mg Ascorbic Acid (Vitamin C 250 Mg Tab) 250 mg PO DAILY [facility] Last Admin: 11/02/16 09:16 Dose: 250 mg Aspirin (Ecotrin) 81 mg PO DAILY [facility] Last Admin: 11/02/16 09:13 Dose: 81 mg Atorvastatin Calcium (Lipitor) 40 mg PO [facility] Last Admin: 11/01/16 21:41 Dose: 40 mg Cilostazol (Pletal) 50 mg PO DAILY [facility] Last Admin: 11/02/16 09:15 Dose: 50 mg Famotidine (Pepcid) 20 mg PO BID [facility] Last Admin: 11/02/16 09:15 Dose: 20 mg Ferrous Sulfate (Feosol) 325 mg PO BID [facility] Last Admin: 11/02/16 09:15 Dose: 325 mg Sodium Chloride (Sodium Chloride 0.9%) 1,000 mls @ 80 mls/hr IV .[id number] [facility] Fluorouracil 4,080 mg/ Sodium (Chloride) 1,081.6 mls @ 24.582 mls/hr IV ONCE ONE PRN Reason: As Directed Stop: 11/03/16 09:59 Last Admin: 11/01/16 18:43 Dose: 24.582 mls/hr Insulin Detemir (Levemir) 10 units SC [facility] Last Admin: 11/01/16 21:50 Dose: 10 units Loperamide HCl (Imodium) 2 mg PO Q1 PRN PRN Reason: Diarrhea Loperamide HCl (Imodium) 4 mg PO ONCE PRN PRN Reason: Diarrhea Last Admin: 11/01/16 19:35 Dose: 4 mg Losartan Potassium (Cozaar) 100 mg PO HS [facility] Last Admin: 11/01/16 21:40 Dose: 100 mg Nadolol (Corgard) 40 mg PO DAILY [facility] Last Admin: 11/02/16 09:13 Dose: 40 mg Ofloxacin (Ocuflox Ophth 0.3%) 2 drop OS Q2 [facility] Last Admin: 11/02/16 12:26 Dose: 2 drop Sucralfate (Carafate Oral Susp) 1 gm PO 0700,1100,1500,2000 [facility] Theophylline (Uniphyl) 400 mg PO DAILY [facility] Last Admin: 11/02/16 09:15 Dose: 400 mg - Labs Labs: 11/02/16 08:32 11/02/16 07:10 PT 11.4 SECONDS (9.6-11.2) H 11/01/16 09:43 INR 1.10 (0.92-1.08) H 11/01/16 09:43 APTT 33.1 SECONDS (23.3-32.5) H 11/01/16 09:43 - Constitutional Appears: No Acute Distress - Head Exam Head Exam: ATRAUMATIC, NORMAL INSPECTION, NORMOCEPHALIC - Eye Exam Eye Exam: eyelid redness Additional comments: eye prosthesis legally blind - ENT Exam ENT Exam: Mucous Membranes Moist, Normal External Ear Exam - Neck Exam Neck exam: Positive for: Full Rom. Negative for: Meningismus - Respiratory Exam Respiratory Exam: NORMAL BREATHING PATTERN. absent: Respiratory Distress - Cardiovascular Exam Cardiovascular Exam: REGULAR RHYTHM, +S1, +S2 - GI/Abdominal Exam GI & Abdominal Exam: Normal Bowel Sounds, Soft. absent: Tenderness - Extremities Exam Extremities exam: Positive for: normal capillary refill, pedal pulses present. Negative for: calf tenderness, pedal edema - Back Exam Back exam: FULL ROM. absent: CVA tenderness (L), CVA tenderness (R) - Neurological Exam Neurological exam: Alert, CN II-XII Intact, Oriented x3, Reflexes Normal - Psychiatric Exam Psychiatric exam: Normal Affect, Normal Mood - Skin Skin Exam: Dry, Normal Color, Warm Assessment and Plan (1) Colon adenocarcinoma Status: Chronic (2) Blepharitis of both upper and lower eyelid of left eye Status: Acute (3) Legally blind Status: Chronic (4) DM type 2 (diabetes mellitus, type 2) Status: Chronic (5) HTN (hypertension) Status: Chronic (6) CAD (coronary artery disease) Status: Chronic (7) COPD (chronic obstructive pulmonary disease) Status: Chronic (8) DVT prophylaxis Status: Acute - Assessment and Plan (Free Text) Assessment: 76 y/o gent with hx of HTN, CAD, COPD, DM II, and Colon Cancer ( hx of Colon Resection and Chemotherapy) admitted for his next cycle of chemotherapy. (1) Colon Cancer s/p Colon resection and Chemotherapy, hx of metastatic disease Oncology consult : Dr Mills Chemotherapy : on Emend , Camptosar, 5 FU and Avastin (2) Blepharitis of both upper and lower eyelid of left eye Status: Acute Pt complains of left lid itching and redness and some crusting/discharge started on Ocuflox eye drops (3) Legally blind Status: Chronic hx of left eye prosthesis (4) DM type 2 (diabetes mellitus, type 2) Status: Chronic accucheck q ACHS with sliding scale coverage- will follow pt's scale , states this is as per what Sr Cam instructed him cont Levemir- states that he takes bet 10-30 units depending on his glucose readings wants Regular diet - does not want consistent CHO diet (5) HTN (hypertension) Status: Chronic cont Norvasc, Nadolol and Cozaar (6) CAD (coronary artery disease) Status: Chronic Hx of Stent placement cont ASA, ARB and Statin (7) COPD (chronic obstructive pulmonary disease) Status: Chronic cont Theophylline - level ok Neb treatment prn (8) DVT prophylaxis Status: Acute SCD Pt refuses any anticoag,
[2016-11-02] MEDS: Insulin Lispro (humaLOG) 100 Units/ml Inj SC SCH ×2 (17:59→22:18)
[2016-11-02] MEDS: Insulin Detemir 100 Units/ml Inj SC SCH (22:20)
[2016-11-02] MEDS: Sodium Chloride 0.9% 1,000 ML IV SCH (23:07)
[2016-11-03] MEDS: Ofloxacin Ophth 0.3% Soln OS SCH ×12 (01:01→22:35)
[2016-11-03] MEDS: Insulin Lispro (humaLOG) 100 Units/ml Inj SC SCH ×4 (07:52→22:34)
[2016-11-03] MEDS: Sucralfate 1 gm/10 ml Oral Susp UD PO SCH ×4 (08:05→20:21)
[2016-11-03] MEDS: THEOPHYLLINE 400 MG T24(UNIPHYL) PO SCH (09:38)
[2016-11-03] MEDS: Cilostazol 50 mg Tab UD PO SCH (09:38)
--- NOTE | 2016-11-03 09:56 | CP.PCM.PN ---
Subjective - Date & Time of Evaluation Date of Evaluation: 11/03/16 Time of Evaluation: 09:51 - Subjective Subjective: Pt is on his 3rd day of fluorouracil infusion. He had diarrhea 3 times since yesterday, but is better today He is on the immodium and does well with it.b He will be discharged today when the infusion finishes. and return in 2 weeks for the next dose of chemo. Objective - Vital Signs/Intake and Output Vital Signs (last 24 hours): Temp Pulse Resp BP Pulse Ox 98.6 F 67 20 176/74 H 100 11/03/16 09:00 11/03/16 09:36 11/03/16 09:00 11/03/16 09:36 11/03/16 09:00 - Medications Medications: Current Medications Acetaminophen (Tylenol 325mg Tab) 650 mg PO Q4 PRN PRN Reason: Pain, moderate (4-7) Last Admin: 11/02/16 22:24 Dose: 650 mg Amlodipine Besylate (Norvasc) 5 mg PO [facility] Last Admin: 11/02/16 22:21 Dose: 5 mg Ascorbic Acid (Vitamin C 250 Mg Tab) 250 mg PO DAILY [facility] Last Admin: 11/03/16 09:38 Dose: 250 mg Aspirin (Ecotrin) 81 mg PO DAILY [facility] Last Admin: 11/03/16 09:37 Dose: 81 mg Atorvastatin Calcium (Lipitor) 40 mg PO HS [facility] Last Admin: 11/02/16 22:21 Dose: 40 mg Cilostazol (Pletal) 50 mg PO DAILY [facility] Last Admin: 11/03/16 09:38 Dose: 50 mg Famotidine (Pepcid) 20 mg PO BID [facility] Last Admin: 11/03/16 09:38 Dose: 20 mg Ferrous Sulfate (Feosol) 325 mg PO BID [facility] Last Admin: 11/03/16 09:37 Dose: 325 mg Sodium Chloride (Sodium Chloride 0.9%) 1,000 mls @ 80 mls/hr IV .[id number] [facility] Last Admin: 11/02/16 23:07 Dose: Not Given Fluorouracil 4,080 mg/ Sodium (Chloride) 1,081.6 mls @ 24.582 mls/hr IV ONCE ONE PRN Reason: As Directed Stop: 11/03/16 09:59 Last Admin: 11/01/16 18:43 Dose: 24.582 mls/hr Insulin Detemir (Levemir) 10 units SC HS [facility] Last Admin: 11/02/16 22:20 Dose: 10 units Insulin Human Lispro (Humalog) 0 units SC [facility] Last Admin: 11/03/16 07:52 Dose: Not Given Loperamide HCl (Imodium) 2 mg PO Q1 PRN PRN Reason: Diarrhea Last Admin: 11/03/16 08:05 Dose: 2 mg Loperamide HCl (Imodium) 4 mg PO ONCE PRN PRN Reason: Diarrhea Last Admin: 11/03/16 00:41 Dose: 4 mg Losartan Potassium (Cozaar) 100 mg PO HS [facility] Last Admin: 11/02/16 22:17 Dose: 100 mg Nadolol (Corgard) 40 mg PO DAILY [facility] Last Admin: 11/03/16 09:36 Dose: 40 mg Ofloxacin (Ocuflox Ophth 0.3%) 2 drop OS Q2 [facility] Last Admin: 11/03/16 09:37 Dose: 2 drop Sucralfate (Carafate Oral Susp) 1 gm PO 0700,1100,1500,2000 [facility] Last Admin: 11/03/16 08:05 Dose: 1 gm Theophylline (Uniphyl) 400 mg PO DAILY [facility] Last Admin: 11/03/16 09:38 Dose: 400 mg - Labs Labs: 11/02/16 08:32 11/02/16 07:10 PT 11.4 SECONDS (9.6-11.2) H 11/01/16 09:43 INR 1.10 (0.92-1.08) H 11/01/16 09:43 APTT 33.1 SECONDS (23.3-32.5) H 11/01/16 09:43
--- NOTE | 2016-11-03 12:21 | CP.PCM.DIS ---
Provider - Provider Date of Admission: 11/01/16 09:00 Attending physician: Olga Shah MD Diagnosis - Discharge Diagnosis (1) Colon adenocarcinoma Status: Chronic (2) Blepharitis of both upper and lower eyelid of left eye Status: Acute (3) Legally blind Status: Chronic (4) DM type 2 (diabetes mellitus, type 2) Status: Chronic (5) HTN (hypertension) Status: Chronic (6) CAD (coronary artery disease) Status: Chronic (7) COPD (chronic obstructive pulmonary disease) Status: Chronic (8) DVT prophylaxis Status: Acute Hospital Course - Lab Results Lab Results: Most Recent Lab Values WBC 4.9 K/uL (4.8-10.8) D 11/02/16 08:32 RBC 3.15 Mil/uL (4.40-5.90) L 11/02/16 08:32 Hgb 9.1 g/dL (12.0-18.0) L 11/02/16 08:32 Hct 27.3 % (35.0-51.0) L 11/02/16 08:32 MCV 86.5 fl (80.0-94.0) 11/02/16 08:32 MCH 28.8 pg (27.0-31.0) 11/02/16 08:32 MCHC 33.2 g/dL (33.0-37.0) 11/02/16 08:32 RDW 15.5 % (11.5-14.5) H 11/02/16 08:32 Plt Count 119 K/uL (130-400) L D 11/02/16 08:32 MPV 8.4 fl (7.2-11.7) 11/02/16 08:32 Neut % (Auto) 84.4 % (50.0-75.0) H 11/02/16 08:32 Lymph % (Auto) 11.9 % (20.0-40.0) L 11/02/16 08:32 [place] % (Auto) 3.3 % (0.0-10.0) 11/02/16 08:32 Eos % (Auto) 0.0 % (0.0-4.0) 11/02/16 08:32 Baso % (Auto) 0.4 % (0.0-2.0) 11/02/16 08:32 Neut # 4.2 K/uL (1.8-7.0) 11/02/16 08:32 Lymph # 0.6 K/uL (1.0-4.3) L 11/02/16 08:32 [place] # 0.2 K/uL (0.0-0.8) 11/02/16 08:32 Eos # 0.0 K/uL (0.0-0.7) 11/02/16 08:32 Baso # 0.0 K/uL (0.0-0.2) 11/02/16 08:32 Neutrophils % (Manual) 46 % (42-75) 11/01/16 09:43 Lymphocytes % (Manual) 14 % (20-50) L 11/01/16 09:43 Reactive Lymphs % 3 % (0-0) H 11/01/16 09:43 Monocytes % (Manual) 10 % (0-10) 11/01/16 09:43 Eosinophils % (Manual) 25 % (0-7) H 11/01/16 09:43 Basophils % (Manual) 1 % (0-2) 11/01/16 09:43 Myelocytes % 1 % (0-0) H 11/01/16 09:43 Toxic Granulation Present 11/01/16 09:43 Platelet Estimate Normal (NORMAL) 11/01/16 09:43 Giant Platelets Present 11/01/16 09:43 Hypochromasia (manual) Slight 11/01/16 09:43 Anisocytosis (manual) Slight 11/01/16 09:43 PT 11.4 SECONDS (9.6-11.2) H 11/01/16 09:43 INR 1.10 (0.92-1.08) H 11/01/16 09:43 APTT 33.1 SECONDS (23.3-32.5) H 11/01/16 09:43 Sodium 140 mmol/l (132-148) 11/02/16 07:10 Potassium 4.0 MMOL/L (3.6-5.0) 11/02/16 07:10 Chloride 107 mmol/L (98-107) 11/02/16 07:10 Carbon Dioxide 23 mmol/L (22-30) 11/02/16 07:10 Anion Gap 14 (10-20) 11/02/16 07:10 BUN 22 mg/dl (9-20) H 11/02/16 07:10 Creatinine 1.0 mg/dL (0.8-1.5) 11/02/16 07:10 Est GFR ( Amer) > 60 11/02/16 07:10 Est GFR (Non-Af Amer) > 60 11/02/16 07:10 POC Glucose (mg/dL) 274 mg/dL (65-110) H 11/02/16 21:41 Random Glucose 279 mg/dL (75-110) H 11/02/16 07:10 Calcium 9.1 mg/dL (8.4-10.2) 11/02/16 07:10 Total Bilirubin 0.3 mg/dl (0.2-1.3) 11/01/16 09:43 AST 22 U/L (17-59) 11/01/16 09:43 ALT 27 U/L (21-72) 11/01/16 09:43 Alkaline Phosphatase 85 U/L (38-126) 11/01/16 09:43 Total Protein 6.3 G/DL (6.3-8.2) 11/01/16 09:43 Albumin 3.5 g/dL (3.5-5.0) 11/01/16 09:43 Globulin 2.8 gm/dL (2.2-3.9) 11/01/16 09:43 Albumin/Globulin Ratio 1.3 (1.0-2.1) 11/01/16 09:43 Carcinoembryonic Ag 10.4 ng/mL (0-3.0) H 11/01/16 10:11 Urine Color Straw (YELLOW) 11/01/16 10:06 Urine Clarity Clear (Clear) 11/01/16 10:06 Urine pH 6.0 (5.0-8.0) 11/01/16 10:06 Ur Specific [place] 1.008 (1.003-1.030) 11/01/16 10:06 Urine Protein 100 mg/dL (NEGATIVE) 11/01/16 10:06 Urine Glucose (UA) Neg mg/dL (Normal) 11/01/16 10:06 Urine Ketones Negative mg/dL (NEGATIVE) 11/01/16 10:06 Urine Blood Negative (NEGATIVE) 11/01/16 10:06 Urine Nitrate Negative (NEGATIVE) 11/01/16 10:06 Urine Bilirubin Negative (NEGATIVE) 11/01/16 10:06 Urine Urobilinogen 0.2-1.0 mg/dL (0.2-1.0) 11/01/16 10:06 Ur Leukocyte Esterase Neg [place]/uL (Negative) 11/01/16 10:06 Urine RBC (Auto) < 1 /hpf (0-3) 11/01/16 10:06 Urine Microscopic WBC 1 /hpf (0-5) 11/01/16 10:06 Ur Squamous Epith Cells < 1 /hpf (0-5) 11/01/16 10:06 Urine Bacteria Rare (<OCC) 11/01/16 10:06 Discharge Exam - Head Exam Head Exam: ATRAUMATIC, NORMAL INSPECTION, NORMOCEPHALIC Discharge Plan - Discharge Medications Prescriptions: Ofloxacin Ophth 0.3% [Ocuflox Ophth 0.3%] 2 drop OS Q2 #1 bottle - Follow Up Plan Condition: GOOD Disposition: HOME/ ROUTINE Instructions: Fluorouracil (By injection), Leucovorin (By injection), Irinotecan (By injection), Bevacizumab (By injection), Eating During Cancer Treatment (GEN), Preventing Infections (GEN), How to Care for Your Implanted Venous Access Port (GEN), Fatigue (GEN) Additional Instructions: ff up with DR Salvador heredia next wk Referrals: Whitney Heredia MD [Staff Provider] -
[2016-11-03 15:53] LABS: HEMATOCRIT 30.4 % (35.0-51.0); MEAN CELL VOLUME 86.7 fl (80.0-94.0); MEAN CORPUSCULAR HEMOGLOBIN 28.7 pg (27.0-31.0); MEAN CORPUSCULAR HGB CONC 33.1 g/dL (33.0-37.0); RED CELL DISTRIBUTION WIDTH 15.3 % (11.5-14.5); WHITE BLOOD COUNT 13.2 K/uL (4.8-10.8)
[2016-11-03 15:54] LABS: BLOOD UREA NITROGEN 24 mg/dl (9-20); CALCIUM 9.3 mg/dL (8.4-10.2); CARBON DIOXIDE 25 mmol/L (22-30); CHLORIDE 107 mmol/L (98-107); GFR AFRICAN-AMERICAN > 60; GLUCOSE,RANDOM 116 mg/dL (75-110); POTASSIUM 3.6 MMOL/L (3.6-5.0); SODIUM 143 mmol/l (132-148)
[2016-11-03 16:40] VITALS: RESP 18
--- NOTE | 2016-11-03 17:16 | CP.PCM.PN ---
Subjective - Date & Time of Evaluation Date of Evaluation: 11/03/16 Time of Evaluation: 17:00 - Subjective Subjective: Pt completed his chemotherapy- plan was to discharge him home post chemo hopwever pt started having dairrhea and is feeling weak He almost feel in the bathroom bec he went without calling RN and abraded his right knee on the tiles , denies pain , refuses any further imaging and states he is fine denies head trauma and states only his right knee was hurt. No fever no CP no SOB no abd pain diarrhea - 4 times already Objective - Vital Signs/Intake and Output Vital Signs (last 24 hours): Temp Pulse Resp BP Pulse Ox 98.6 F 70 18 161/68 H 98 11/03/16 16:39 11/03/16 16:39 11/03/16 16:39 11/03/16 16:39 11/03/16 16:39 - Medications Medications: Current Medications Acetaminophen (Tylenol 325mg Tab) 650 mg PO Q4 PRN PRN Reason: Pain, moderate (4-7) Last Admin: 11/02/16 22:24 Dose: 650 mg Amlodipine Besylate (Norvasc) 5 mg PO [facility] Last Admin: 11/02/16 22:21 Dose: 5 mg Ascorbic Acid (Vitamin C 250 Mg Tab) 250 mg PO DAILY [facility] Last Admin: 11/03/16 09:38 Dose: 250 mg Aspirin (Ecotrin) 81 mg PO DAILY [facility] Last Admin: 11/03/16 09:37 Dose: 81 mg Atorvastatin Calcium (Lipitor) 40 mg PO [facility] Last Admin: 11/02/16 22:21 Dose: 40 mg Cilostazol (Pletal) 50 mg PO DAILY [facility] Last Admin: 11/03/16 09:38 Dose: 50 mg Famotidine (Pepcid) 20 mg PO BID [facility] Last Admin: 11/03/16 16:23 Dose: 20 mg Ferrous Sulfate (Feosol) 325 mg PO BID [facility] Last Admin: 11/03/16 16:24 Dose: 325 mg Heparin Sodium (Porcine) (Heparin Lock Flush) 500 units IVF ONCE ONE Stop: 11/03/16 16:44 Sodium Chloride (Sodium Chloride 0.9%) 1,000 mls @ 80 mls/hr IV .[id number] [facility] Last Admin: 11/02/16 23:07 Dose: Not Given Insulin Detemir (Levemir) 10 units SC [facility] Last Admin: 11/02/16 22:20 Dose: 10 units Insulin Human Lispro (Humalog) [address] [facility] Last Admin: 11/03/16 12:57 Dose: Not Given Loperamide HCl (Imodium) 2 mg PO Q1 PRN PRN Reason: Diarrhea Last Admin: 11/03/16 16:38 Dose: 2 mg Loperamide HCl (Imodium) 4 mg PO ONCE PRN PRN Reason: Diarrhea Last Admin: 11/03/16 00:41 Dose: 4 mg Losartan Potassium (Cozaar) 100 mg PO [facility] Last Admin: 11/02/16 22:17 Dose: 100 mg Nadolol (Corgard) 40 mg PO DAILY [facility] Last Admin: 11/03/16 09:36 Dose: 40 mg Ofloxacin (Ocuflox Ophth 0.3%) 2 drop OS Q2 [facility] Last Admin: 11/03/16 16:23 Dose: 2 drop Sucralfate (Carafate Oral Susp) 1 gm PO 0700,1100,1500,2000 [facility] Last Admin: 11/03/16 16:24 Dose: 1 gm Theophylline (Uniphyl) 400 mg PO DAILY [facility] Last Admin: 11/03/16 09:38 Dose: 400 mg - Labs Labs: 11/03/16 15:41 11/03/16 15:41 PT 11.4 SECONDS (9.6-11.2) H 11/01/16 09:43 INR 1.10 (0.92-1.08) H 11/01/16 09:43 APTT 33.1 SECONDS (23.3-32.5) H 11/01/16 09:43 - Constitutional Appears: No Acute Distress - Head Exam Head Exam: ATRAUMATIC, NORMAL INSPECTION, NORMOCEPHALIC - Eye Exam Eye Exam: eyelid redness Additional comments: eye prosthesis legally blind - ENT Exam ENT Exam: Mucous Membranes Moist, Normal External Ear Exam - Neck Exam Neck exam: Positive for: Full Rom. Negative for: Meningismus - Respiratory Exam Respiratory Exam: NORMAL BREATHING PATTERN. absent: Respiratory Distress - Cardiovascular Exam Cardiovascular Exam: REGULAR RHYTHM, +S1, +S2 - GI/Abdominal Exam GI & Abdominal Exam: Normal Bowel Sounds, Soft. absent: Tenderness - Extremities Exam Extremities exam: Positive for: normal capillary refill, pedal pulses present. Negative for: calf tenderness, pedal edema right knee , small abrasion no open wound - Back Exam Back exam: FULL ROM. absent: CVA tenderness (L), CVA tenderness (R) - Neurological Exam Neurological exam: Alert, CN II-XII Intact, Oriented x3, Reflexes Normal - Psychiatric Exam Psychiatric exam: Normal Affect, Normal Mood - Skin Skin Exam: Dry, Normal Color, Warm Assessment and Plan (1) Colon adenocarcinoma Status: Chronic (2) Blepharitis of both upper and lower eyelid of left eye Status: Acute (3) Legally blind Status: Chronic (4) DM type 2 (diabetes mellitus, type 2) Status: Chronic (5) HTN (hypertension) Status: Chronic (6) CAD (coronary artery disease) Status: Chronic (7) COPD (chronic obstructive pulmonary disease) Status: Chronic (8) DVT prophylaxis Status: Acute - Assessment and Plan (Free Text) Assessment: 76 y/o gent with hx of HTN, CAD, COPD, DM II, and Colon Cancer ( hx of Colon Resection and Chemotherapy) admitted for his next cycle of chemotherapy. Post chemotherapy , pt started having diarrhea and feels weak. (1) Colon Cancer s/p Colon resection and Chemotherapy, hx of metastatic disease Oncology consult : Dr Mills Chemotherapy : on Emend , Camptosar, 5 FU and Avastin completed chemotherapy today- plan was to d/c pt however pt started having severeal episodes of diarrhea and is feeling weak. PT consult (2) Blepharitis of both upper and lower eyelid of left eye Status: Acute Pt complains of left lid itching and redness and some crusting/discharge started on Ocuflox eye drops (3) Legally blind Status: Chronic hx of left eye prosthesis (4) DM type 2 (diabetes mellitus, type 2) Status: Chronic accucheck q ACHS with sliding scale coverage- will follow pt's scale , states this is as per what Dr Andino instructed him cont Levemir- states that he takes bet 10-30 units depending on his glucose readings wants Regular diet - does not want consistent CHO diet (5) HTN (hypertension) Status: Chronic cont Norvasc, Nadolol and Cozaar (6) CAD (coronary artery disease) Status: Chronic Hx of Stent placement cont ASA, ARB and Statin (7) COPD (chronic obstructive pulmonary disease) Status: Chronic cont Theophylline - level ok Neb treatment prn (8) Diarrhea likely related to chemotherapy Imodium prn IVF hydration (9) DVT prophylaxis Status: Acute SCD Pt refuses any anticoag,
[2016-11-03] MEDS ORDERED: Sodium Chloride 0.9% 1,000 ML IV SCH (18:45)
[2016-11-03] MEDS ORDERED: Atropine-Diphenoxylate 0.025-2.5 mg Tab PO PRN (19:19)
[2016-11-03] MEDS: Insulin Detemir 100 Units/ml Inj SC SCH (22:34)
[2016-11-04] MEDS: Sodium Chloride 0.9% 1,000 ML IV SCH (01:00)
[2016-11-04 01:17] VITALS: O2SAT 99
[2016-11-04] MEDS: Ofloxacin Ophth 0.3% Soln OS SCH ×7 (01:17→13:06)
[2016-11-04] MEDS: Sucralfate 1 gm/10 ml Oral Susp UD PO SCH ×2 (06:12→13:05)
[2016-11-04] MEDS: Insulin Lispro (humaLOG) 100 Units/ml Inj SC SCH ×2 (07:47→13:05)
[2016-11-04 07:57] VITALS: BP 175/65; PULSE 73; TEMP 98.2
[2016-11-04] MEDS: THEOPHYLLINE 400 MG T24(UNIPHYL) PO SCH (08:22)
[2016-11-04] MEDS: Cilostazol 50 mg Tab UD PO SCH (08:22)
--- NOTE | 2016-11-04 10:12 | CP.PCM.DIS ---
Provider - Provider Date of Admission: 11/01/16 09:00 Attending physician: Olga Shah MD Primary care physician: Dr. Paige Consults: Oncology consult Time Spent in preparation of Discharge (in minutes): 20 Hospital Course - Lab Results Lab Results: Most Recent Lab Values WBC 13.2 K/uL (4.8-10.8) H D 11/03/16 15:41 RBC 3.50 Mil/uL (4.40-5.90) L 11/03/16 15:41 Hgb 10.0 g/dL (12.0-18.0) L 11/03/16 15:41 Hct 30.4 % (35.0-51.0) L 11/03/16 15:41 MCV 86.7 fl (80.0-94.0) 11/03/16 15:41 MCH 28.7 pg (27.0-31.0) 11/03/16 15:41 MCHC 33.1 g/dL (33.0-37.0) 11/03/16 15:41 RDW 15.3 % (11.5-14.5) H 11/03/16 15:41 Plt Count 206 K/uL (130-400) 11/03/16 15:41 MPV 8.4 fl (7.2-11.7) 11/02/16 08:32 Neut % (Auto) 84.4 % (50.0-75.0) H 11/02/16 08:32 Lymph % (Auto) 11.9 % (20.0-40.0) L 11/02/16 08:32 Leon % (Auto) 3.3 % (0.0-10.0) 11/02/16 08:32 Eos % (Auto) 0.0 % (0.0-4.0) 11/02/16 08:32 Baso % (Auto) 0.4 % (0.0-2.0) 11/02/16 08:32 Neut # 4.2 K/uL (1.8-7.0) 11/02/16 08:32 Lymph # 0.6 K/uL (1.0-4.3) L 11/02/16 08:32 Leon # 0.2 K/uL (0.0-0.8) 11/02/16 08:32 Eos # 0.0 K/uL (0.0-0.7) 11/02/16 08:32 Baso # 0.0 K/uL (0.0-0.2) 11/02/16 08:32 Neutrophils % (Manual) 46 % (42-75) 11/01/16 09:43 Lymphocytes % (Manual) 14 % (20-50) L 11/01/16 09:43 Reactive Lymphs % 3 % (0-0) H 11/01/16 09:43 Monocytes % (Manual) 10 % (0-10) 11/01/16 09:43 Eosinophils % (Manual) 25 % (0-7) H 11/01/16 09:43 Basophils % (Manual) 1 % (0-2) 11/01/16 09:43 Myelocytes % 1 % (0-0) H 11/01/16 09:43 Toxic Granulation Present 11/01/16 09:43 Platelet Estimate Normal (NORMAL) 11/01/16 09:43 Giant Platelets Present 11/01/16 09:43 Hypochromasia (manual) Slight 11/01/16 09:43 Anisocytosis (manual) Slight 11/01/16 09:43 PT 11.4 SECONDS (9.6-11.2) H 11/01/16 09:43 INR 1.10 (0.92-1.08) H 11/01/16 09:43 APTT 33.1 SECONDS (23.3-32.5) H 11/01/16 09:43 Sodium 143 mmol/l (132-148) 11/03/16 15:41 Potassium 3.6 MMOL/L (3.6-5.0) 11/03/16 15:41 Chloride 107 mmol/L (98-107) 11/03/16 15:41 Carbon Dioxide 25 mmol/L (22-30) 11/03/16 15:41 Anion Gap 15 (10-20) 11/03/16 15:41 BUN 24 mg/dl (9-20) H 11/03/16 15:41 Creatinine 1.0 mg/dL (0.8-1.5) 11/03/16 15:41 Est GFR ( Amer) > 60 11/03/16 15:41 Est GFR (Non-Af Amer) > 60 11/03/16 15:41 POC Glucose (mg/dL) 217 mg/dL (65-110) H 11/04/16 07:16 Random Glucose 116 mg/dL (75-110) H 11/03/16 15:41 Calcium 9.3 mg/dL (8.4-10.2) 11/03/16 15:41 Total Bilirubin 0.3 mg/dl (0.2-1.3) 11/01/16 09:43 AST 22 U/L (17-59) 11/01/16 09:43 ALT 27 U/L (21-72) 11/01/16 09:43 Alkaline Phosphatase 85 U/L (38-126) 11/01/16 09:43 Total Protein 6.3 G/DL (6.3-8.2) 11/01/16 09:43 Albumin 3.5 g/dL (3.5-5.0) 11/01/16 09:43 Globulin 2.8 gm/dL (2.2-3.9) 11/01/16 09:43 Albumin/Globulin Ratio 1.3 (1.0-2.1) 11/01/16 09:43 Carcinoembryonic Ag 10.4 ng/mL (0-3.0) H 11/01/16 10:11 Urine Color Straw (YELLOW) 11/01/16 10:06 Urine Clarity Clear (Clear) 11/01/16 10:06 Urine pH 6.0 (5.0-8.0) 11/01/16 10:06 Ur Specific Drums 1.008 (1.003-1.030) 11/01/16 10:06 Urine Protein 100 mg/dL (NEGATIVE) 11/01/16 10:06 Urine Glucose (UA) Neg mg/dL (Normal) 11/01/16 10:06 Urine Ketones Negative mg/dL (NEGATIVE) 11/01/16 10:06 Urine Blood Negative (NEGATIVE) 11/01/16 10:06 Urine Nitrate Negative (NEGATIVE) 11/01/16 10:06 Urine Bilirubin Negative (NEGATIVE) 11/01/16 10:06 Urine Urobilinogen 0.2-1.0 mg/dL (0.2-1.0) 11/01/16 10:06 Ur Leukocyte Esterase Neg Bakari/uL (Negative) 11/01/16 10:06 Urine RBC (Auto) < 1 /hpf (0-3) 11/01/16 10:06 Urine Microscopic WBC 1 /hpf (0-5) 11/01/16 10:06 Ur Squamous Epith Cells < 1 /hpf (0-5) 11/01/16 10:06 Urine Bacteria Rare (<OCC) 11/01/16 10:06 - Hospital Course Hospital Course: 76 y/o gent with hx of HTN, CAD, COPD, DM II, and Colon Cancer ( hx of Colon Resection and Chemotherapy) admitted for his next cycle of chemotherapy. Post chemotherapy , pt started having diarrhea , vomiting and feeling weak. Was treated with IVF, Zofran PRN and lomotil .At present diarrhea resolved . Will discharge patient home with .Prescriptions for Carafate suspension, lomotil and zofran PRN sent to his pharmacy. Patient to follow up with DR. Heredia for his next cycle of chemotherapy. (1) Colon Cancer s/p Colon resection and Chemotherapy, hx of metastatic disease Oncology consult : Dr Heredia Chemotherapy : on Emend , Camptosar, 5 FU and Avastin completed chemotherapy d/c home follow up with Dr. Heredia (2) Blepharitis of both upper and lower eyelid of left eye Acute Pt complains of left lid itching and redness and some crusting/discharge started on Ocuflox eye drops Follow up with rehabilitation case coordinator outpatient (3) Legally blind Chronic hx of left eye prosthesis (4) DM type 2 (diabetes mellitus, type 2) Chronic , controlled accucheck q ACHS with sliding scale coverage- will follow pt's scale , states this is as per what Dr Andino instructed him cont Levemir- states that he takes bet 10-30 units depending on his glucose readings wants Regular diet - does not want consistent CHO diet (5) HTN (hypertension) Chronic , controlled cont Norvasc, Nadolol and Cozaar (6) CAD (coronary artery disease) Chronic Hx of Stent placement cont ASA, ARB and Statin (7) COPD (chronic obstructive pulmonary disease) Chronic cont Theophylline - level ok Neb treatment prn (8) Diarrhea likely related to chemotherapy Continue lomotil prn (9) DVT prophylaxis SCD Pt refused any anticoag, Discharge Exam - Head Exam Head Exam: ATRAUMATIC, NORMAL INSPECTION, NORMOCEPHALIC - Eye Exam Eye Exam: EOMI, PERRL (to right eye) Additional comments: left eye blindness and prosthesis left eye inferior and superior eyelids dry skin - ENT Exam ENT Exam: Mucous Membranes Moist - Neck Exam Neck exam: Normal Inspection - Respiratory Exam Respiratory Exam: Clear to PA & Lateral. absent: Rhonchi, Wheezes, Respiratory Distress - Cardiovascular Exam Cardiovascular Exam: REGULAR RHYTHM, RRR, +S1, +S2. absent: JVD - GI/Abdominal Exam GI & Abdominal Exam: Normal Bowel Sounds, Soft. absent: Distended, Guarding, Rebound, Tenderness - Rectal Exam Rectal Exam: Deferred - Extremities Exam Extremities exam: normal capillary refill, normal inspection - Back Exam Back exam: NORMAL INSPECTION - Neurological Exam Neurological exam: Alert, CN II-XII Intact, Oriented x3 - Psychiatric Exam Psychiatric exam: Normal Affect - Skin Skin Exam: Dry, Pallor, Warm Discharge Plan - Discharge Medications Prescriptions: Atropine/DiphenoxylateAtropine [Lomotil] 5 ml PO BID #60 ml Ofloxacin Ophth 0.3% [Ocuflox Ophth 0.3%] 2 drop OS Q2 #1 bottle Ondansetron [Zofran] 4 mg PO Q8H #20 tab Sucralfate [Carafate] 1 gm PO QID #120 dose - Follow Up Plan Condition: STABLE Disposition: HOME/ ROUTINE Patient education suggested?: Yes Instructions: Fluorouracil (By injection), Leucovorin (By injection), Irinotecan (By injection), Bevacizumab (By injection), Eating During Cancer Treatment (GEN), Preventing Infections (GEN), How to Care for Your Implanted Venous Access Port (GEN), Fatigue (GEN) Additional Instructions: ff up with DR Salvador heredia next wk ff up with Dr Paige in 2 wks return if diarrhea worsens appt with Ophtha dru Referrals: Whitney Heredia MD [Staff Provider] - Stan Paige MD [Staff Provider] -
== END 2016-11-04 16:01 | disposition home or self-care (01) | DRG 847 ==
LOC: H.MEDSURG1 09:00
PROVIDERS: ADMIT Internal Medicine; ATTEND Internal Medicine
DX: Z51.11 Encounter for antineoplastic chemotherapy (principal); C18.6 Malignant neoplasm of descending colon; C79.9 Secondary malignant neoplasm of unspecified site; E11.40 Type 2 diabetes mellitus with diabetic neuropathy, unspecified; I10 Essential (primary) hypertension; K21.9 Gastro-esophageal reflux disease without esophagitis; J44.9 Chronic obstructive pulmonary disease, unspecified; I25.10 Atherosclerotic heart disease of native coronary artery without angina pectoris; H54.8 Legal blindness, as defined in USA; H01.005 Unspecified blepharitis left lower eyelid; H01.004 Unspecified blepharitis left upper eyelid; Z95.5 Presence of coronary angioplasty implant and graft; Z97.0 Presence of artificial eye; Z87.891 Personal history of nicotine dependence; H40.9 Unspecified glaucoma; K59.00 Constipation, unspecified; T45.1X5A Adverse effect of antineoplastic and immunosuppressive drugs, initial encounter; R19.7 Diarrhea, unspecified

== ENCOUNTER 2016-11-14 08:12 | Inpatient (IN) | payer MEDICARE, BC ==
[2016-11-14 08:15] VITALS: BMI 23.6
--- NOTE | 2016-11-14 08:21 | CP.PCM.HP ---
History of Present Illness - History of Present Illness History of Present Illness: 76 y/o gent with hx of HTN, DM, Legally Blind,COPD,CAD, GERD and Metastatic Colon CA s/p Colon resection and Chemotherapy, came in for scheduled chemotherapy. Patient was diagnosed to have Colon CA 3 years ago. He then underwent Surgery and Chemotherapy and was in remission. Until a few months ago , he had recurrence of his Colon CA and now with metastasis. He was then restarted on Chemotherapy. He has been following up with Dr Salvador Mills for this. He came today for another cycle of his chemotherapy. He is complaining of multiple episodes of watery diarrhea and abdominal tenderness with palpation especially to LUQ and suprapubic area.He has lost almost 10 lbs. Denies fever, CP, SOB,cough, duysuria Allergies ; latex, Codeine, cefepime, gabapentine,morphine, oxycodone PMH :HTN , DM, legally blind, COPD , CAD,l GERD , colon CA with metastasis Surgery ; colon resection Medications; see med rec Family history ; None Social history ; Lives with in [place] ,ex smoker, denies ETOgH or drug abuse, lives in [place] ROS ; All other review of system negative except above Code Status : Full Surrogate Decision maker : Rhea Present on Admission - Present on Admission Any Indicators Present on Admission: No Review of Systems - Review of Systems All systems: reviewed and no additional remarkable complaints except Past Patient History - Infectious Disease Hx of Infectious Diseases: None - Tetanus Immunizations Tetanus Immunization: Unknown - Past Medical History & Family History Past Medical History?: Yes - Past Social History Smoking Status: Former Smoker Chewing Tobacco Use: No Alcohol: None Drugs: Denies Home Situation {Lives}: With Family Domestic Violence: Negative - CARDIAC Hx Cardiac Disorders: Yes Hx Hypertension: Yes Hx Peripheral Edema: No Other/Comment: CAD s/p stent - PULMONARY Hx Respiratory Disorders: Yes Hx Chronic Obstructive Pulmonary Disease (COPD): Yes Hx Emphysema: Yes - NEUROLOGICAL Hx Neurological Disorder: No - HEENT Hx HEENT Problems: Yes 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,L eye glass) Hx Cataracts: Yes Hx Glaucoma: Yes Other/Comment: Left eye prothesis - RENAL Hx Chronic Kidney Disease: No - ENDOCRINE/METABOLIC Hx Endocrine Disorders: Yes Hx Diabetes Mellitus Type 2: Yes Other/Comment: diabetic neuropathy - HEMATOLOGICAL/ONCOLOGICAL Hx Blood Disorders: Yes Hx AIDS: No Hx Anemia: Yes Hx Blood Transfusions: Yes Hx Blood Transfusion Reaction: No Hx Bruising: Yes Hx Cancer: Yes (colon) Hx Chemotherapy: Yes Other/Comment: HX MRSA CYST ON SHOULDER - INTEGUMENTARY Hx Dermatological Problems: No - MUSCULOSKELETAL/RHEUMATOLOGICAL Hx Musculoskeletal Disorders: Yes Hx Arthritis: Yes - GASTROINTESTINAL Hx Gastrointestinal Disorders: Yes Hx Bowel Surgery: Yes (colon resection) Hx Gastroesophageal Reflux: Yes Hx Ulcer: Yes (gastric) Other/Comment: HIATAL HERNIA - GENITOURINARY/GYNECOLOGICAL Hx Genitourinary Disorders: No - PSYCHIATRIC Hx Psychophysiologic Disorder: Yes Hx Anxiety: Yes Hx Emotional Abuse: No Hx Physical Abuse: No Hx Substance Use: No - SURGICAL HISTORY Hx Surgeries: Yes Hx Angioplasty: Yes Hx Cataract Extraction: Yes Hx Cardiac Catheterization: Yes (WITH STENT PLACEMENT X 8) Hx Coronary Stent: Yes Hx Tonsillectomy: Yes Other/Comment: NASAL DEVIATED SEPTUM REPAIR 1974. RADIOFREQUENCY ABLATION NERVES BACK 2012. COLON RESECTION 11/2013. DAVID CATH INSERTION 11/2013 & REMOVED DUE TO MRSA. Left Eye Prosthesis - ANESTHESIA Hx Anesthesia: Yes Hx Anesthesia Reactions: No Hx Malignant Hyperthermia: No Meds Allergies/Adverse Reactions: Allergies Allergy/AdvReac Type Severity Reaction Status Date / Time latex Allergy Mild RASH Verified 09/12/16 08:16 codeine Allergy HALLUCINATI Verified 09/12/16 08:16 ON cefepime HCl [From Maxipime] AdvReac Severe Confusion Verified 09/12/16 08:16 gabapentin [From Neurontin] AdvReac Confusion Verified 09/12/16 08:16 morphine AdvReac Hallucinati Verified 09/12/16 08:16 on oxycodone HCl [From Percocet] AdvReac Hallucinati Verified 09/12/16 08:16 on Physical Exam - Constitutional Appears: Non-toxic, No Acute Distress, Chronically Ill - Head Exam Head Exam: ATRAUMATIC, NORMOCEPHALIC - Eye Exam Additional comments: Left eye prosthetic eye right eye pupil reactive to light - ENT Exam ENT Exam: Mucous Membranes Moist, Normal Exam - Neck Exam Neck exam: Positive for: Normal Inspection - Respiratory Exam Respiratory Exam: Clear to Auscultation Bilateral, NORMAL BREATHING PATTERN. absent: Wheezes, Respiratory Distress - Cardiovascular Exam Cardiovascular Exam: REGULAR RHYTHM, +S1, +S2. absent: JVD - GI/Abdominal Exam GI & Abdominal Exam: Normal Bowel Sounds, Soft, Tenderness (with palpation to LUQ and suprapubic area). absent: Distended, Guarding, Rebound - Rectal Exam Rectal Exam: Deferred - Extremities Exam Extremities exam: Positive for: normal capillary refill, normal inspection, pedal pulses present. Negative for: calf tenderness, pedal edema - Back Exam Back exam: NORMAL INSPECTION - Neurological Exam Neurological exam: Alert, CN II-XII Intact, Oriented x3 - Psychiatric Exam Psychiatric exam: Normal Affect - Skin Skin Exam: Dry, Intact, Pallor, Warm Results - Vital Signs Recent Vital Signs: Last Vital Signs Temp 96.9 F L 11/14/16 08:18 Pulse 78 11/14/16 08:18 Resp BP 152/65 H 11/14/16 08:18 Pulse Ox - Labs Result Diagrams: 11/14/16 09:15 11/14/16 09:15 Assessment & Plan - Assessment and Plan (Free Text) Assessment: 76 y/o gent with hx of HTN, CAD, COPD, DM II, and Colon Cancer ( hx of Colon Resection and Chemotherapy) came for his next cycle of chemotherapy. 1. Colon Cancer s/p Colon resection and Chemotherapy, hx of metastatic disease Oncology consult : Dr Mills Plan for chemotherapy Started Lomotil for diarrhea and Bentyl 2. Anemia of chronic disease Continue monitoring for now No need for transfusion 3. Legally blind hx of left eye prothesis 4. DM type 2 (diabetes mellitus, type 2) accucheck q ACHS cont Levemir- states that he takes bet 10-30 units depending on his glucose readings Refuses diabetic diet and asking for regular diet 5. HTN (hypertension) cont Norvasc, Nadolol and Cozaar 6. CAD (coronary artery disease) Hx of Stent placement cont ASA, ARB and Statin 7. COPD (chronic obstructive pulmonary disease) cont Theophylline - level ok Neb treatment prn 8. DVT prophylaxis SCD Pt refuses any anticoag,
[2016-11-14] MEDS ORDERED: Sodium Chloride 0.9% 1,000 ML IV SCH (08:30)
[2016-11-14] MEDS ORDERED: Atropine-Diphenoxylate 0.025-2.5mg/5 mL Oral Liq (60 ml) PO SCH (09:00)
[2016-11-14] MEDS ORDERED: FERROUS FUM PO SCH (09:00)
[2016-11-14] MEDS ORDERED: [UNRECOGNIZED DRUG - OTHER] PO SCH (09:00)
[2016-11-14] MEDS ORDERED: B12 PO SCH (09:00)
[2016-11-14] MEDS ORDERED: VIT C PO SCH (09:00)
[2016-11-14] MEDS ORDERED: IRINOTECAN IV ONE ×2 (09:01→12:30)
[2016-11-14] MEDS ORDERED: SODIUM CHLORIDE 0.9% IV ONE ×7 (09:01→13:30)
[2016-11-14] MEDS ORDERED: LEUCOVORIN CALCIUM IVPB ONE ×2 (09:03→12:30)
[2016-11-14] MEDS ORDERED: SODIUM CHLORIDE 0.9% IVPB ONE ×2 (09:03→12:30)
[2016-11-14] MEDS ORDERED: BEVACIZUMAB IV ONE ×2 (09:04→13:30)
[2016-11-14] MEDS ORDERED: FLUOROURACIL IV ONE ×3 (09:05→13:30)
[2016-11-14 09:20] LABS: BASO # 0.1 K/uL (0.0-0.2); BASO % 1.1 % (0.0-2.0); EOS # 0.7 K/uL (0.0-0.7); EOS % 11.9 % (0.0-4.0); HEMATOCRIT 25.3 % (35.0-51.0); LYMPH # 1.1 K/uL (1.0-4.3); LYMPH % 18.4 % (20.0-40.0); MEAN CELL VOLUME 84.8 fl (80.0-94.0); MEAN CORPUSCULAR HGB CONC 34.2 g/dL (33.0-37.0); MEAN PLATELET VOLUME 7.5 fl (7.2-11.7); MONO # 0.4 K/uL (0.0-0.8); MONO % 6.1 % (0.0-10.0); NEUT # 3.6 K/uL (1.8-7.0); NEUT % 62.5 % (50.0-75.0); RED CELL DISTRIBUTION WIDTH 15.2 % (11.5-14.5); WHITE BLOOD COUNT 5.7 K/uL (4.8-10.8)
[2016-11-14] MEDS ORDERED: Ofloxacin Ophth 0.3% Soln OS SCH (10:00)
[2016-11-14 10:06] LABS: ALKALINE PHOSPHATASE 102 U/L (38-126); ALT/SGPT 33 U/L (21-72); AST/SGOT 22 U/L (17-59); BILIRUBIN,TOTAL 0.2 mg/dl (0.2-1.3); BLOOD UREA NITROGEN 15 mg/dl (9-20); CALCIUM 9.4 mg/dL (8.4-10.2); CARBON DIOXIDE 22 mmol/L (22-30); CHLORIDE 107 mmol/L (98-107); GFR AFRICAN-AMERICAN > 60; GLUCOSE,RANDOM 264 mg/dL (75-110); POTASSIUM 3.4 MMOL/L (3.6-5.0); SODIUM 139 mmol/l (132-148); TOTAL PROTEIN 6.4 G/DL (6.3-8.2)
[2016-11-14] MEDS ORDERED: Lidocaine/Prilocaine CREAM 5GM TP ONE (10:15)
[2016-11-14] MEDS ORDERED: Dexamethasone 10 MG in Sodium Chloride 0.9% 50 ML IVPB ONE (10:15)
[2016-11-14] MEDS ORDERED: APREPITANT 125 MG CAP PO ONE (10:15)
[2016-11-14 10:16] LABS: PARTIAL THROMBOPLASTIN TIME 38.7 SECONDS (23.3-32.5)
--- NOTE | 2016-11-14 10:17 | CP.PCM.CON ---
History of Present Illness - History of Present Illness History of Present Illness: This is a 76 yrsold male who was diagnosed to have a ciolon cancer 2yrs ago. He received chemotherapy for 12 treatments, but a few months later he had recurrence at the anastomotic site, and lung. We restarted the chemo and but other than the lung lesions the abdominal disease did not decrease. He is now on FOLFIRI+Avastin. He has diarrhea at home and is feeling very weak. he has pccasional crampy pain in the abdomen. There had been a little sigmoid wall thickening on the scan and i have been asking him to have a colonoscopy done but he has not done it done because he cannot tolerate the prep. he has a past h/o CAD, HTN, IDDM, and blindness. Past Patient History - Infectious Disease Hx of Infectious Diseases: None - Tetanus Immunizations Tetanus Immunization: Unknown - Past Medical History & Family History Past Medical History?: Yes - Past Social History Smoking Status: Former Smoker Chewing Tobacco Use: No - CARDIAC Hx Cardiac Disorders: Yes Hx Hypertension: Yes Hx Peripheral Edema: No Other/Comment: CAD s/p stent - PULMONARY Hx Respiratory Disorders: Yes Hx Chronic Obstructive Pulmonary Disease (COPD): Yes Hx Emphysema: Yes - NEUROLOGICAL Hx Neurological Disorder: No - HEENT Hx HEENT Problems: Yes 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,L eye glass) Hx Cataracts: Yes Hx Glaucoma: Yes Other/Comment: Left eye prothesis - RENAL Hx Chronic Kidney Disease: No - ENDOCRINE/METABOLIC Hx Endocrine Disorders: Yes Hx Diabetes Mellitus Type 2: Yes Other/Comment: diabetic neuropathy - HEMATOLOGICAL/ONCOLOGICAL Hx Blood Disorders: Yes Hx AIDS: No Hx Anemia: Yes Hx Blood Transfusions: Yes Hx Blood Transfusion Reaction: No Hx Bruising: Yes Hx Cancer: Yes (colon) Hx Chemotherapy: Yes Other/Comment: HX MRSA CYST ON SHOULDER - INTEGUMENTARY Hx Dermatological Problems: No - MUSCULOSKELETAL/RHEUMATOLOGICAL Hx Musculoskeletal Disorders: Yes Hx Arthritis: Yes - GASTROINTESTINAL Hx Gastrointestinal Disorders: Yes Hx Bowel Surgery: Yes (colon resection) Hx Gastroesophageal Reflux: Yes Hx Ulcer: Yes (gastric) Other/Comment: HIATAL HERNIA - GENITOURINARY/GYNECOLOGICAL Hx Genitourinary Disorders: No - PSYCHIATRIC Hx Psychophysiologic Disorder: Yes Hx Anxiety: Yes Hx Emotional Abuse: No Hx Physical Abuse: No Hx Substance Use: No - SURGICAL HISTORY Hx Surgeries: Yes Hx Angioplasty: Yes Hx Cataract Extraction: Yes Hx Cardiac Catheterization: Yes (WITH STENT PLACEMENT X 8) Hx Coronary Stent: Yes Hx Tonsillectomy: Yes Other/Comment: NASAL DEVIATED SEPTUM REPAIR 1974. RADIOFREQUENCY ABLATION NERVES BACK 2012. COLON RESECTION 11/2013. DAVID CATH INSERTION 11/2013 & REMOVED DUE TO MRSA. Left Eye Prosthesis - ANESTHESIA Hx Anesthesia: Yes Hx Anesthesia Reactions: No Hx Malignant Hyperthermia: No Meds Allergies/Adverse Reactions: Allergies Allergy/AdvReac Type Severity Reaction Status Date / Time latex Allergy Mild RASH Verified 09/12/16 08:16 codeine Allergy HALLUCINATI Verified 09/12/16 08:16 ON cefepime HCl [From Maxipime] AdvReac Severe Confusion Verified 09/12/16 08:16 gabapentin [From Neurontin] AdvReac Confusion Verified 09/12/16 08:16 morphine AdvReac Hallucinati Verified 09/12/16 08:16 on oxycodone HCl [From Percocet] AdvReac Hallucinati Verified 09/12/16 08:16 on - Medications Medications: Current Medications Acetaminophen (Tylenol 325mg Tab) 650 mg PO Q6 PRN PRN Reason: Pain, Mild (1-3) Acetaminophen (Tylenol 325mg Tab) 650 mg PO Q6 PRN PRN Reason: Fever >100.4 F Amlodipine Besylate (Norvasc) 5 mg PO HS [facility] Ascorbic Acid (Vitamin C 250 Mg Tab) 250 mg PO DAILY [facility] Aspirin (Aspirin Chewable) 81 mg PO HS [facility] Atorvastatin Calcium (Lipitor) 40 mg PO HS [facility] Cilostazol (Pletal) 50 mg PO BID [facility] Dicyclomine HCl (Bentyl) 10 mg PO QID [facility] Diphenoxylate HCl/Atropine (Lomotil 0.025-2.5 Mg Tablet) 1 tab PO QID PRN PRN Reason: Diarrhea Famotidine (Pepcid) 20 mg PO BID [facility] Home Med (Cholecalciferol (Vitamin D3) [Dialyvite Vitamin D]) 5,000 unit PO WM [facility] Home Med (Ferrous Fum/Vit C/B12/Stomc [Hematogen Softgel]) 1 gel PO DAILY [facility] Sodium Chloride (Sodium Chloride 0.9%) 1,000 mls @ 100 mls/hr IV .Q10H [facility] Diphenhydramine HCl 25 mg/ (Sodium Chloride) 50.5 mls @ 101 mls/hr IVPB ONCE ONE Stop: 11/14/16 10:44 Dexamethasone 10 mg/ Sodium (Chloride) 51 mls @ 102 mls/hr IVPB ONCE ONE Stop: 11/14/16 09:21 Sodium Chloride (Sodium Chloride 0.9%) 500 mls @ 90 mls/hr IV .Q5H34M [facility] Ondansetron HCl 16 mg/ Sodium (Chloride) 58 mls @ 116 mls/hr IVPB ONCE ONE Stop: 11/14/16 09:21 Fluorouracil 3,835 mg/ Sodium (Chloride) 1,076.7 mls @ 0 mls/hr IV ONCE ONE PRN Reason: As Directed Stop: 11/14/16 09:08 Bevacizumab 293 mg/ Sodium (Chloride) 261.72 mls @ 0 mls/hr IV ONCE ONE PRN Reason: As Directed Stop: 11/14/16 09:18 Irinotecan HCl 287 mg/ Sodium (Chloride) 264.35 mls @ 0 mls/hr IV ONCE ONE PRN Reason: As Directed Stop: 11/14/16 09:14 Fluorouracil 639 mg/ Sodium (Chloride) 112.78 mls @ 0 mls/hr IV ONCE ONE PRN Reason: As Directed Stop: 11/14/16 09:15 Leucovorin Calcium 639 mg/ (Sodium Chloride) 250 mls @ 0 mls/hr IVPB ONCE ONE PRN Reason: As Directed Stop: 11/14/16 09:16 Insulin Human Lispro (Humalog) 0 units SC ACHS [facility] PRN Reason: Protocol Lidocaine/Prilocaine (Lidocaine/Prilocaine 2.5%-2.5%) 1 applic TP ONCE ONE Stop: 11/14/16 08:53 Losartan Potassium (Cozaar) 100 mg PO HS [facility] Nadolol (Corgard) 40 mg PO DAILY [facility] Ofloxacin (Ocuflox Ophth 0.3%) 2 drop OS Q2 [facility] Ondansetron HCl (Zofran Inj) 4 mg IVP Q6 PRN PRN Reason: Nausea/Vomiting Pantoprazole Sodium (Protonix Ec Tab) 40 mg PO DAILY [facility] Sucralfate (Carafate Oral Susp) 1 gm PO QID [facility] Theophylline (Uniphyl) 400 mg PO DAILY [facility] Physical Exam - Additional Findings Additional findings: Physical exam;Alert. well oriented in no acute distress neck; Supple, no adenopathy Chest; Clear, no rales opr rhonchi Heart; RSR. no murmur Abd; Soft, no mass, no h/s megaly Results - Vital Signs Recent Vital Signs: Last Vital Signs Temp 98.4 F 11/14/16 09:56 Pulse 71 11/14/16 09:56 Resp 20 11/14/16 09:56 BP 155/61 H 11/14/16 09:56 Pulse Ox 100 11/14/16 09:56 - Labs Result Diagrams: 11/14/16 09:15 Labs: Laboratory Results - last 24 hr 11/14/16 09:15 WBC 5.7 D RBC 2.98 L Hgb 8.6 L Hct 25.3 L MCV 84.8 MCH 29.0 MCHC 34.2 RDW 15.2 H Plt Count 301 MPV 7.5 Neut % (Auto) 62.5 Lymph % (Auto) 18.4 L [place] % (Auto) 6.1 Eos % (Auto) 11.9 H Baso % (Auto) 1.1 Neut # 3.6 Lymph # 1.1 [place] # 0.4 Eos # 0.7 Baso # 0.1 Assessment & Plan - Assessment and Plan (Free Text) Assessment: Impression; Colon cancer Plan: Plan; Will give irinotecan, fluorouracil, leucovorin, and avatoday then start fluorouracil as a 44 hrs infusion. Will also give 1 unit of packed cells today
[2016-11-14 10:22] LABS: ALB/GLOB RATIO 1.1 (1.0-2.1)
[2016-11-14] MEDS: Sodium Chloride 0.9% 500 ML IV SCH ×2 (11:21→15:12)
[2016-11-14] MEDS ORDERED: CHOLECALCIFEROL 5000 UNIT PO SCH (12:00)
[2016-11-14] MEDS: Insulin Lispro (humaLOG) 100 Units/ml Inj SC SCH ×3 (15:41→21:52)
[2016-11-14] MEDS: Sucralfate 1 gm/10 ml Oral Susp UD PO SCH ×4 (15:41→21:46)
[2016-11-14] MEDS: Cilostazol 50 mg Tab UD PO SCH ×2 (16:52→17:42)
[2016-11-14] MEDS: THEOPHYLLINE 400 MG T24(UNIPHYL) PO SCH (16:53)
[2016-11-14] MEDS: Pantoprazole 40 mg EC Tab PO SCH (16:53)
[2016-11-15 07:56] LABS: MEAN CORPUSCULAR HEMOGLOBIN 27.9 pg (27.0-31.0); MEAN CORPUSCULAR HGB CONC 33.9 g/dL (33.0-37.0); RED CELL DISTRIBUTION WIDTH 17.2 % (11.5-14.5); WHITE BLOOD COUNT 4.7 K/uL (4.8-10.8)
[2016-11-15 07:57] LABS: MEAN CELL VOLUME 82.1 fl (80.0-94.0)
[2016-11-15] MEDS: Insulin Lispro (humaLOG) 100 Units/ml Inj SC SCH ×4 (08:22→21:46)
[2016-11-15] MEDS: Sucralfate 1 gm/10 ml Oral Susp UD PO SCH ×4 (08:23→21:33)
[2016-11-15] MEDS: APREPITANT 80 MG CAP PO SCH (08:33)
[2016-11-15] MEDS: Pantoprazole 40 mg EC Tab PO SCH (08:33)
[2016-11-15] MEDS: Cilostazol 50 mg Tab UD PO SCH ×2 (08:33→17:50)
[2016-11-15] MEDS: THEOPHYLLINE 400 MG T24(UNIPHYL) PO SCH (08:33)
[2016-11-15 09:05] LABS: BLOOD UREA NITROGEN 18 mg/dl (9-20); CALCIUM 8.9 mg/dL (8.4-10.2); CARBON DIOXIDE 20 mmol/L (22-30); CHLORIDE 108 mmol/L (98-107); GFR AFRICAN-AMERICAN > 60; GLUCOSE,RANDOM 334 mg/dL (75-110); POTASSIUM 3.9 MMOL/L (3.6-5.0); SODIUM 142 mmol/l (132-148)
--- NOTE | 2016-11-15 10:02 | CP.PCM.PN ---
Subjective - Date & Time of Evaluation Date of Evaluation: 11/15/16 Time of Evaluation: 09:57 - Subjective Subjective: Pt is feeling much better today after the transfusion. His abdominal pain is better as well. He is on the 2nd day of fluorouracils. Will be dischaeged tomorrow, after the infusion finishes. Objective - Vital Signs/Intake and Output Vital Signs (last 24 hours): Temp Pulse Resp BP Pulse Ox 98.3 F 72 20 160/68 H 96 11/15/16 07:48 11/15/16 08:32 11/15/16 07:48 11/15/16 08:32 11/15/16 07:48 - Medications Medications: Current Medications Acetaminophen (Tylenol 325mg Tab) 650 mg PO Q6 PRN PRN Reason: Pain, Mild (1-3) Last Admin: 11/15/16 08:31 Dose: 650 mg Acetaminophen (Tylenol 325mg Tab) 650 mg PO Q6 PRN PRN Reason: Fever >100.4 F Amlodipine Besylate (Norvasc) 5 mg PO [facility] Last Admin: 11/14/16 21:45 Dose: 5 mg Ascorbic Acid (Vitamin C 250 Mg Tab) 250 mg PO DAILY [facility] Last Admin: 11/15/16 08:33 Dose: 250 mg Aspirin (Aspirin Chewable) 81 mg PO [facility] Last Admin: 11/14/16 21:44 Dose: 81 mg Atorvastatin Calcium (Lipitor) 40 mg PO [facility] Last Admin: 11/14/16 21:45 Dose: 40 mg Cilostazol (Pletal) 50 mg PO BID [facility] Last Admin: 11/15/16 08:33 Dose: 50 mg Dicyclomine HCl (Bentyl) 10 mg PO QID [facility] Last Admin: 11/15/16 08:32 Dose: 10 mg Diphenoxylate HCl/Atropine (Lomotil 0.025-2.5 Mg Tablet) 1 tab PO QID PRN PRN Reason: Diarrhea Home Med (Cholecalciferol (Vitamin D3) [Dialyvite Vitamin D]) 5,000 unit PO WM [facility] Home Med (Ferrous Fum/Vit C/B12/Stomc [Hematogen Softgel]) 1 gel PO DAILY [facility] Sodium Chloride (Sodium Chloride 0.9%) 500 mls @ 90 mls/hr IV .Q5H34M [facility] Last Admin: 11/14/16 15:12 Dose: Not Given Fluorouracil 3,835 mg/ Sodium (Chloride) 1,076.7 mls @ 24.47 mls/hr IV ONCE ONE PRN Reason: As Directed Stop: 11/16/16 09:29 Last Admin: 11/14/16 18:38 Dose: 24.47 mls/hr Insulin Human Lispro (Humalog) 0 units SC ACHS [facility] PRN Reason: Protocol Last Admin: 11/15/16 08:22 Dose: 5 u Losartan Potassium (Cozaar) 100 mg PO HS [facility] Last Admin: 11/14/16 21:46 Dose: 100 mg Nadolol (Corgard) 40 mg PO DAILY [facility] Last Admin: 11/15/16 08:32 Dose: 40 mg Ondansetron HCl (Zofran Inj) 4 mg IVP Q6 PRN PRN Reason: Nausea/Vomiting Pantoprazole Sodium (Protonix Ec Tab) 40 mg PO DAILY [facility] Last Admin: 11/15/16 08:33 Dose: 40 mg Sucralfate (Carafate Oral Susp) 1 gm PO QID [facility] Last Admin: 11/15/16 08:23 Dose: 1 gm Theophylline (Uniphyl) 400 mg PO DAILY [facility] Last Admin: 11/15/16 08:33 Dose: 400 mg - Labs Labs: 11/15/16 07:52 11/15/16 07:52 PT 12.2 SECONDS (9.6-11.2) H 11/14/16 09:15 INR 1.17 (0.92-1.08) H 11/14/16 09:15 APTT 38.7 SECONDS (23.3-32.5) H 11/14/16 09:15
--- NOTE | 2016-11-15 11:55 | CP.PCM.PN ---
Subjective - Date & Time of Evaluation Date of Evaluation: 11/15/16 Time of Evaluation: 11:45 - Subjective Subjective: No fever Had diarrhea yesterday - none today so far tolerating PO diet no CP no SOB no cough no abd pain Objective - Vital Signs/Intake and Output Vital Signs (last 24 hours): Temp Pulse Resp BP Pulse Ox 98.3 F 72 20 160/68 H 96 11/15/16 07:48 11/15/16 08:32 11/15/16 07:48 11/15/16 08:32 11/15/16 07:48 - Medications Medications: Current Medications Acetaminophen (Tylenol 325mg Tab) 650 mg PO Q6 PRN PRN Reason: Pain, Mild (1-3) Last Admin: 11/15/16 08:31 Dose: 650 mg Acetaminophen (Tylenol 325mg Tab) 650 mg PO Q6 PRN PRN Reason: Fever >100.4 F Amlodipine Besylate (Norvasc) 5 mg PO [facility] Last Admin: 11/14/16 21:45 Dose: 5 mg Ascorbic Acid (Vitamin C 250 Mg Tab) 250 mg PO DAILY [facility] Last Admin: 11/15/16 08:33 Dose: 250 mg Aspirin (Aspirin Chewable) 81 mg PO [facility] Last Admin: 11/14/16 21:44 Dose: 81 mg Atorvastatin Calcium (Lipitor) 40 mg PO [facility] Last Admin: 11/14/16 21:45 Dose: 40 mg Cholecalciferol (Vitamin D) 5,000 iu PO DAILY [facility] Cilostazol (Pletal) 50 mg PO BID [facility] Last Admin: 11/15/16 08:33 Dose: 50 mg Dicyclomine HCl (Bentyl) 10 mg PO QID [facility] Last Admin: 11/15/16 08:32 Dose: 10 mg Diphenoxylate HCl/Atropine (Lomotil 0.025-2.5 Mg Tablet) 1 tab PO QID PRN PRN Reason: Diarrhea Home Med (Cholecalciferol (Vitamin D3) [Dialyvite Vitamin D]) 5,000 unit PO WM [facility] Home Med (Ferrous Fum/Vit C/B12/Stomc [Hematogen Softgel]) 1 gel PO DAILY [facility] Sodium Chloride (Sodium Chloride 0.9%) 500 mls @ 90 mls/hr IV .Q5H34M [facility] Last Admin: 11/14/16 15:12 Dose: Not Given Fluorouracil 3,835 mg/ Sodium (Chloride) 1,076.7 mls @ 24.47 mls/hr IV ONCE ONE PRN Reason: As Directed Stop: 11/16/16 09:29 Last Admin: 11/14/16 18:38 Dose: 24.47 mls/hr Insulin Detemir (Levemir) 0 units SC HS [facility] Insulin Human Lispro (Humalog) 0 units SC ACHS [facility] PRN Reason: Protocol Last Admin: 11/15/16 08:22 Dose: 5 u Losartan Potassium (Cozaar) 100 mg PO HS [facility] Last Admin: 11/14/16 21:46 Dose: 100 mg Nadolol (Corgard) 40 mg PO DAILY [facility] Last Admin: 11/15/16 08:32 Dose: 40 mg Ondansetron HCl (Zofran Inj) 4 mg IVP Q6 PRN PRN Reason: Nausea/Vomiting Pantoprazole Sodium (Protonix Ec Tab) 40 mg PO DAILY [facility] Last Admin: 11/15/16 08:33 Dose: 40 mg Sucralfate (Carafate Oral Susp) 1 gm PO QID [facility] Last Admin: 11/15/16 08:23 Dose: 1 gm Theophylline (Uniphyl) 400 mg PO DAILY [facility] Last Admin: 11/15/16 08:33 Dose: 400 mg - Labs Labs: 11/15/16 07:52 11/15/16 07:52 PT 12.2 SECONDS (9.6-11.2) H 11/14/16 09:15 INR 1.17 (0.92-1.08) H 11/14/16 09:15 APTT 38.7 SECONDS (23.3-32.5) H 11/14/16 09:15 - Constitutional Appears: No Acute Distress, Chronically Ill - Head Exam Head Exam: NORMAL INSPECTION, NORMOCEPHALIC - Eye Exam Additional comments: eft eye prosthesis legally blind - ENT Exam ENT Exam: Mucous Membranes Moist, Normal External Ear Exam - Neck Exam Neck Exam: Full ROM. absent: Meningismus - Respiratory Exam Respiratory Exam: Decreased Breath Sounds, NORMAL BREATHING PATTERN. absent: Wheezes, Respiratory Distress - Cardiovascular Exam Cardiovascular Exam: REGULAR RHYTHM, +S1, +S2 - GI/Abdominal Exam GI & Abdominal Exam: Soft, Normal Bowel Sounds. absent: Tenderness - Extremities Exam Extremities Exam: Full ROM, Normal Capillary Refill. absent: Calf Tenderness - Back Exam Back Exam: Full ROM. absent: CVA tenderness (L), CVA tenderness (R), paraspinal tenderness - Neurological Exam Neurological Exam: Alert, Awake, CN II-XII Intact, Oriented x3 Neuro motor strength exam: Left Upper Extremity: 5, Right Upper Extremity: 5, Left Lower Extremity: 5, Right Lower Extremity: 5 - Psychiatric Exam Psychiatric exam: Normal Affect, Normal Mood - Skin Skin Exam: Dry, Normal Color, Warm Assessment and Plan - Assessment and Plan (Free Text) Assessment: 76 y/o gent with hx of HTN, CAD, COPD, DM II, and Colon Cancer with mets ( hx of Colon Resection and Chemotherapy) came for his next cycle of chemotherapy. 1. Colon Cancer , metastatic to lungs s/p Colon resection and Chemotherapy, with metastatic disease to the lungs Oncology consult : Dr Mills started on scheduled chemotherapy Started Lomotil for diarrhea and Bentyl 2. Anemia of chronic disease Continue monitoring for now transfused 1 unit PRBC 3. 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 DM type 2 (diabetes mellitus, type 2) accucheck q ACHS cont Levemir- states that he takes bet 10-30 units depending on his glucose readings Refuses diabetic diet and asking for regular diet 5. HTN (hypertension) cont Norvasc, Nadolol and Cozaar 6. CAD (coronary artery disease) Hx of Stent placement cont ASA, ARB and Statin 7. COPD (chronic obstructive pulmonary disease) cont Theophylline - level ok Neb treatment prn 8. DVT prophylaxis SCD Pt refuses any anticoag,
--- NOTE | 2016-11-15 14:34 | PQF GENQUE ---
Dr. Shah, Metastatic Sites: if known? OR: unable to determine H and P: Patient was diagnosed to have Colon CA 3 years ago. He then underwent Surgery and Chemotherapy and was in remission. Until a few months ago , he had recurrence of his Colon CA and now with metastasis Oncology note: diagnosed to have a colon cancer 2yrs ago. He received chemotherapy for 12 treatments, but a few months later he had recurrence at the anastomotic site, and lung. We restarted the chemo and but other than the lung lesions the abdominal disease did not decrease. There had been a little sigmoid wall thickening on the scan and I have be asking him to have a colonoscopy done but he has not done it done because he cannot tolerate the prep. This form is a permanent part of the medical record Clarification of your documentation is requested to better reflect the severity of illness and intensity of treatment of your patient. Indicators present [] Specify: [] [] Specify: [] [] Specify: [] [] Specify: [] Location in the medical record that reflects the above clinical findings: [] Treatment Provided: [] PHYSICIAN'S RESPONSE Colon Cancer with mets to the lungs Based on your medical judgment of the clinical indicators outlined above please clarify the following: [] Practitioner response [] If unable to determine, please check the box, sign and date. Present On Admission (POA) Indicator: [] Present at the time of admission [] Not present at the time of admission [] Clinically Undetermined In responding to this query, please exercise your independent professional judgment. The fact that a question is asked does not imply that any particular answer is desired or expected. Thank you for your clarification on this documentation. If you have any questions please call. * Thank you, Rebecca Hogan RN BSN ext. #[phone] MTDD
[2016-11-15 15:54] LABS: RBC URINE 3 /hpf (0-3); URINE BILIRUBIN NEGATIVE (NEGATIVE); URINE BLOOD NEGATIVE (NEGATIVE); URINE COLOR YELLOW (YELLOW); URINE GLUCOSE (UA) >=500 mg/dL (Normal); URINE KETONE NEGATIVE (NEGATIVE); URINE LEUKOCYTE ESTERASE NEG Leu/uL (Negative); URINE PROTEIN >=500 mg/dL (NEGATIVE); URINE UROBILINOGEN 0.2-1.0 mg/dL (0.2-1.0); WBC URINE < 1 /hpf (0-5)
[2016-11-15] MEDS: Atropine-Diphenoxylate 0.025-2.5 mg Tab PO PRN (19:50)
[2016-11-15] MEDS: Artificial Tears Opht Soln OU SCH (21:33)
[2016-11-15] MEDS ORDERED: Insulin Detemir 100 Units/ml Inj SC SCH (22:00)
[2016-11-16] MEDS: Sodium Chloride 0.9% 500 ML IV SCH ×3 (00:10→12:07)
[2016-11-16] MEDS: Artificial Tears Opht Soln OU SCH ×2 (04:10→09:09)
[2016-11-16 07:40] VITALS: BP 155/63; PULSE 59; RESP 17; TEMP 98.1; O2SAT 99
[2016-11-16] MEDS: Insulin Lispro (humaLOG) 100 Units/ml Inj SC SCH ×2 (09:07→12:40)
[2016-11-16] MEDS: Cilostazol 50 mg Tab UD PO SCH (09:08)
[2016-11-16] MEDS: Sucralfate 1 gm/10 ml Oral Susp UD PO SCH ×2 (09:08→12:40)
[2016-11-16] MEDS: APREPITANT 80 MG CAP PO SCH (09:09)
[2016-11-16] MEDS: Pantoprazole 40 mg EC Tab PO SCH (09:09)
[2016-11-16] MEDS: THEOPHYLLINE 400 MG T24(UNIPHYL) PO SCH (09:10)
[2016-11-16] MEDS: Atropine-Diphenoxylate 0.025-2.5 mg Tab PO PRN (09:14)
--- NOTE | 2016-11-16 09:51 | CP.PCM.PN ---
Subjective - Date & Time of Evaluation Date of Evaluation: 11/16/16 Time of Evaluation: 09:47 - Subjective Subjective: Pt has had a good three days this treatment. No diarrhea, or vomiting. He will be discharged today and return for the next chemo in 2 weeks Objective - Vital Signs/Intake and Output Vital Signs (last 24 hours): Temp Pulse Resp BP Pulse Ox 98.1 F 59 L 17 155/63 H 99 11/16/16 07:39 11/16/16 07:39 11/16/16 07:39 11/16/16 07:39 11/16/16 07:39 - Medications Medications: Current Medications Acetaminophen (Tylenol 325mg Tab) 650 mg PO Q6 PRN PRN Reason: Pain, Mild (1-3) Last Admin: 11/16/16 06:46 Dose: 650 mg Acetaminophen (Tylenol 325mg Tab) 650 mg PO Q6 PRN PRN Reason: Fever >100.4 F Amlodipine Besylate (Norvasc) 5 mg PO [facility] Last Admin: 11/15/16 21:33 Dose: 5 mg Artificial Tears (Artificial Tears) 2 drop OU Q6 [facility] Last Admin: 11/16/16 09:09 Dose: 2 drop Ascorbic Acid (Vitamin C 250 Mg Tab) 250 mg PO DAILY [facility] Last Admin: 11/16/16 09:08 Dose: 250 mg Aspirin (Aspirin Chewable) 81 mg PO [facility] Last Admin: 11/15/16 21:33 Dose: 81 mg Atorvastatin Calcium (Lipitor) 40 mg PO [facility] Last Admin: 11/15/16 21:33 Dose: 40 mg Cholecalciferol (Vitamin D) 5,000 iu PO DAILY [facility] Last Admin: 11/16/16 09:10 Dose: 5,000 iu Cilostazol (Pletal) 50 mg PO BID [facility] Last Admin: 11/16/16 09:08 Dose: 50 mg Dicyclomine HCl (Bentyl) 10 mg PO QID [facility] Last Admin: 11/16/16 09:08 Dose: 10 mg Diphenoxylate HCl/Atropine (Lomotil 0.025-2.5 Mg Tablet) 1 tab PO QID PRN PRN Reason: Diarrhea Last Admin: 11/16/16 09:14 Dose: 1 tab Home Med (Cholecalciferol (Vitamin D3) [Dialyvite Vitamin D]) 5,000 unit PO [facility] Last Admin: 11/15/16 15:19 Dose: Not Given Home Med (Ferrous Fum/Vit C/B12/Stomc [Hematogen Softgel]) 1 gel PO DAILY [facility] Sodium Chloride (Sodium Chloride 0.9%) 500 mls @ 90 mls/hr IV .Q5H34M [facility] Last Admin: 11/16/16 06:00 Dose: Not Given Insulin Detemir (Levemir) 0 units SC HS [facility] Last Admin: 11/15/16 21:45 Dose: 10 units Insulin Human Lispro (Humalog) 0 units SC [facility] PRN Reason: Protocol Last Admin: 11/16/16 09:07 Dose: Not Given Losartan Potassium (Cozaar) 100 mg PO HS [facility] Last Admin: 11/15/16 21:34 Dose: 100 mg Nadolol (Corgard) 40 mg PO DAILY [facility] Last Admin: 11/16/16 09:09 Dose: 40 mg Ondansetron HCl (Zofran Inj) 4 mg IVP Q6 PRN PRN Reason: Nausea/Vomiting Pantoprazole Sodium (Protonix Ec Tab) 40 mg PO DAILY [facility] Last Admin: 11/16/16 09:09 Dose: 40 mg Sucralfate (Carafate Oral Susp) 1 gm PO QID [facility] Last Admin: 11/16/16 09:08 Dose: 1 gm Theophylline (Uniphyl) 400 mg PO DAILY [facility] Last Admin: 11/16/16 09:10 Dose: 400 mg - Labs Labs: 11/15/16 07:52 11/15/16 07:52 PT 12.2 SECONDS (9.6-11.2) H 11/14/16 09:15 INR 1.17 (0.92-1.08) H 11/14/16 09:15 APTT 38.7 SECONDS (23.3-32.5) H 11/14/16 09:15
--- NOTE | 2016-11-16 14:22 | CP.PCM.DIS ---
Provider - Provider Date of Admission: 11/14/16 08:21 Attending physician: Criss Patterson MD Primary care physician: Dr. Paige Consults: Hem/onc consult Time Spent in preparation of Discharge (in minutes): 15 Hospital Course - Lab Results Lab Results: Most Recent Lab Values WBC 4.7 K/uL (4.8-10.8) L 11/15/16 07:52 RBC 3.28 Mil/uL (4.40-5.90) L 11/15/16 07:52 Hgb 9.1 g/dL (12.0-18.0) L 11/15/16 07:52 Hct 27.0 % (35.0-51.0) L 11/15/16 07:52 MCV 82.1 fl (80.0-94.0) D 11/15/16 07:52 MCH 27.9 pg (27.0-31.0) 11/15/16 07:52 MCHC 33.9 g/dL (33.0-37.0) 11/15/16 07:52 RDW 17.2 % (11.5-14.5) H 11/15/16 07:52 Plt Count 269 K/uL (130-400) 11/15/16 07:52 MPV 7.5 fl (7.2-11.7) 11/14/16 09:15 Neut % (Auto) 62.5 % (50.0-75.0) 11/14/16 09:15 Lymph % (Auto) 18.4 % (20.0-40.0) L 11/14/16 09:15 [place] % (Auto) 6.1 % (0.0-10.0) 11/14/16 09:15 Eos % (Auto) 11.9 % (0.0-4.0) H 11/14/16 09:15 Baso % (Auto) 1.1 % (0.0-2.0) 11/14/16 09:15 Neut # 3.6 K/uL (1.8-7.0) 11/14/16 09:15 Lymph # 1.1 K/uL (1.0-4.3) 11/14/16 09:15 [place] # 0.4 K/uL (0.0-0.8) 11/14/16 09:15 Eos # 0.7 K/uL (0.0-0.7) 11/14/16 09:15 Baso # 0.1 K/uL (0.0-0.2) 11/14/16 09:15 PT 12.2 SECONDS (9.6-11.2) H 11/14/16 09:15 INR 1.17 (0.92-1.08) H 11/14/16 09:15 APTT 38.7 SECONDS (23.3-32.5) H 11/14/16 09:15 Sodium 142 mmol/l (132-148) 11/15/16 07:52 Potassium 3.9 MMOL/L (3.6-5.0) 11/15/16 07:52 Chloride 108 mmol/L (98-107) H 11/15/16 07:52 Carbon Dioxide 20 mmol/L (22-30) L 11/15/16 07:52 Anion Gap 18 (10-20) 11/15/16 07:52 BUN 18 mg/dl (9-20) 11/15/16 07:52 Creatinine 1.0 mg/dL (0.8-1.5) 11/15/16 07:52 Est GFR ( Amer) > 60 11/15/16 07:52 Est GFR (Non-Af Amer) > 60 11/15/16 07:52 POC Glucose (mg/dL) 251 mg/dL (65-110) H 11/16/16 12:29 Random Glucose 334 mg/dL (75-110) H 11/15/16 07:52 Calcium 8.9 mg/dL (8.4-10.2) 11/15/16 07:52 Total Bilirubin 0.2 mg/dl (0.2-1.3) 11/14/16 09:15 AST 22 U/L (17-59) 11/14/16 09:15 ALT 33 U/L (21-72) 11/14/16 09:15 Alkaline Phosphatase 102 U/L (38-126) 11/14/16 09:15 Total Protein 6.4 G/DL (6.3-8.2) 11/14/16 09:15 Albumin 3.4 g/dL (3.5-5.0) L 11/14/16 09:15 Globulin 3.0 gm/dL (2.2-3.9) 11/14/16 09:15 Albumin/Globulin Ratio 1.1 (1.0-2.1) 11/14/16 09:15 Urine Color Yellow (YELLOW) 11/15/16 13:00 Urine Clarity Clear (Clear) 11/15/16 13:00 Urine pH 5.0 (5.0-8.0) 11/15/16 13:00 Ur Specific [place] 1.023 (1.003-1.030) 11/15/16 13:00 Urine Protein >=500 mg/dL (NEGATIVE) 11/15/16 13:00 Urine Glucose (UA) >=500 mg/dL (Normal) 11/15/16 13:00 Urine Ketones Negative mg/dL (NEGATIVE) 11/15/16 13:00 Urine Blood Negative (NEGATIVE) 11/15/16 13:00 Urine Nitrate Negative (NEGATIVE) 11/15/16 13:00 Urine Bilirubin Negative (NEGATIVE) 11/15/16 13:00 Urine Urobilinogen 0.2-1.0 mg/dL (0.2-1.0) 11/15/16 13:00 Ur Leukocyte Esterase Neg [place]/uL (Negative) 11/15/16 13:00 Urine RBC (Auto) 3 /hpf (0-3) 11/15/16 13:00 Urine Microscopic WBC < 1 /hpf (0-5) 11/15/16 13:00 Hyaline Casts 0-2 /hpf (0-2) 11/15/16 13:00 Blood Type A POSITIVE 11/14/16 11:24 Antibody Screen Negative 11/14/16 11:24 Crossmatch See Detail 11/14/16 11:24 BBK History Checked Patient has bt 11/14/16 11:24 - Hospital Course Hospital Course: 76 y/o gent with hx of HTN, CAD, COPD, DM II, and Colon Cancer with lung mets ( hx of Colon Resection and Chemotherapy) came for his next cycle of chemotherapy.Patient did well during this cycle. He was transfused with 1 unit PRBC for his anemia.He received bentyl and lomotil for his diarrhea with some improvement.At present patient finished his chemo infusion, doing well, hemodynamically stable. Will discharge patient home. Will return to hospital in 2 weeks for his next cycle. 1. Colon Cancer , metastatic to lungs s/p Colon resection and Chemotherapy, with metastatic disease to the lungs Oncology consult : Dr Mills Received his scheduled cycle of chemotherapy Received Lomotil for diarrhea and Bentyl with improvement 2. Anemia of chronic disease Continue monitoring for now transfused 1 unit PRBC 3. Legally blind hx of left eye prosthesis Started artificial tears 4. DM type 2 (diabetes mellitus, type 2) accucheck q ACHS cont Levemir- states that he takes bet 10-30 units depending on his glucose readings Refuses diabetic diet and asking for regular diet 5. HTN (hypertension) cont Norvasc, Nadolol and Cozaar 6. CAD (coronary artery disease) Hx of Stent placement cont ASA, ARB and Statin 7. COPD (chronic obstructive pulmonary disease) cont Theophylline - level ok Neb treatment prn 8. DVT prophylaxis SCD Pt refuses any anticoag, Discharge Exam - Head Exam Head Exam: NORMAL INSPECTION, NORMOCEPHALIC - Eye Exam Eye Exam: EOMI Additional comments: left eye prosthesis / blindness right eye pupil reactive to light - ENT Exam ENT Exam: Mucous Membranes Moist, Normal Exam - Neck Exam Neck exam: Normal Inspection - Respiratory Exam Respiratory Exam: Clear to PA & Lateral, NORMAL BREATHING PATTERN. absent: Rhonchi, Wheezes - Cardiovascular Exam Cardiovascular Exam: REGULAR RHYTHM, RRR, +S1, +S2 - GI/Abdominal Exam GI & Abdominal Exam: Normal Bowel Sounds, Soft, Tenderness (with palpation to LUQ and suprapubic). absent: Distended, Firm, Rebound - Rectal Exam Rectal Exam: Deferred - Extremities Exam Extremities exam: normal capillary refill, normal inspection, pedal pulses present - Back Exam Back exam: NORMAL INSPECTION - Neurological Exam Neurological exam: Alert, CN II-XII Intact, Oriented x3, Reflexes Normal - Psychiatric Exam Psychiatric exam: Normal Affect - Skin Skin Exam: Dry, Intact, Pallor, Warm Discharge Plan - Follow Up Plan Condition: STABLE Disposition: HOME/ ROUTINE Patient education suggested?: Yes Instructions: Fluorouracil (By injection), Eating During Cancer Treatment (DC) , Fall Prevention for Older Adults (GEN) Referrals: Will Mills MD [Staff Provider] - Stan Paige MD [Staff Provider] -
== END 2016-11-16 15:50 | disposition home or self-care (01) | DRG 847 ==
LOC: H.MEDSURG1 08:21
PROVIDERS: ADMIT Hospitalist; ATTEND Hospitalist
PROC: 3E04305 Introduction of Other Antineoplastic into Central Vein, Percutaneous Approach (ICD-10-PCS; principal; 2016-11-14)
PROC: 30233N1 Transfusion of Nonautologous Red Blood Cells into Peripheral Vein, Percutaneous Approach (ICD-10-PCS; 2016-11-14)
DX: Z51.11 Encounter for antineoplastic chemotherapy (principal); C18.9 Malignant neoplasm of colon, unspecified; C78.00 Secondary malignant neoplasm of unspecified lung; E11.40 Type 2 diabetes mellitus with diabetic neuropathy, unspecified; I10 Essential (primary) hypertension; D63.8 Anemia in other chronic diseases classified elsewhere; J44.9 Chronic obstructive pulmonary disease, unspecified; H54.8 Legal blindness, as defined in USA; K21.9 Gastro-esophageal reflux disease without esophagitis; I25.10 Atherosclerotic heart disease of native coronary artery without angina pectoris; Z95.5 Presence of coronary angioplasty implant and graft; Z91.040 Latex allergy status; Z88.6 Allergy status to analgesic agent; H40.9 Unspecified glaucoma

== ENCOUNTER 2016-11-22 14:09 | Inpatient (IN) | payer MEDICARE, BC ==
[2016-11-22 14:10] VITALS: BMI 23.6
[2016-11-22] MEDS ORDERED: Sodium Chloride 0.9% 1,000 ML IV ONE (14:55)
[2016-11-22] MEDS ORDERED: Iohexol 240 (50 ml) ONE (15:01)
--- NOTE | 2016-11-22 15:02 | ED PDOC ---
HPI: Abdomen Time Seen by Provider: 11/22/16 14:33 Chief Complaint (Nursing): Abdominal Pain History Per: Patient History/Exam Limitations: no limitations Onset/Duration Of Symptoms: Gradual (4 weeks) Outside of [place] travel?: No Current Symptoms Are (Timing): Still Present Severity: Moderate Location Of Pain/Discomfort: Diffuse Quality Of Discomfort: Dull, Cramping. denies: Burning, Pressure, Stabbing Associated Symptoms: Diarrhea. denies: Fever, Chills, Nausea, Vomiting, Back Pain, Chest Pain, Constipation, Urinary Symptoms Exacerbating Factors: None Alleviating Factors: None Last Bowel Movement: Today Additional History Per: Patient Additional Complaint(s): c/o abd. pain and diarrhea x4 weeks . pt on chemo for colon cancer. sent in by onc. Past Medical History Reviewed: Historical Data, Nursing Documentation, Vital Signs Vital Signs: Last Vital Signs Temp 98.3 F 11/22/16 14:12 Pulse 79 11/22/16 14:12 Resp 22 11/22/16 14:12 BP 133/78 11/22/16 14:12 Pulse Ox 99 11/22/16 16:21 - Medical History PMH: Anemia, Anxiety, Arthritis, Back Problems (neck/ back herniated disc), CAD , CHF, COPD, Diabetes (IDDM), Emphysema, HTN, Hypercholesterolemia Denies: HIV, Peripheral Edema, Chronic Kidney Disease - Surgical History Surgical History: Coronary Stent, Tonsillectomy - Family History Family History: States: Unknown Family Hx - Living Arrangements Living Arrangements: With Family - Social History Current smoker - smoking cessation education provided: No - Home Medications Home Medications: Ambulatory Orders Medication Instructions Recorded Atorvastatin Calcium [Lipitor] 40 mg PO HS 07/22/14 Famotidine [Pepcid] 20 mg PO BID 07/22/14 Insulin Glargine,Hum.rec.anlog 10 - 30 units SUBCUT HS 07/22/14 [Lantus] Insulin Glulisine [Apidra] 5 - 25 units SUBCUT TID 07/22/14 Losartan Potassium [Cozaar] 100 mg PO HS 07/22/14 amLODIPine [Norvasc] 5 mg PO HS 07/22/14 Acetaminophen [Tylenol 325mg tab] 975 mg PO Q4 PRN 05/23/16 Ascorbic Acid [Vitamin C 250 mg 250 mg PO DAILY 08/01/16 Tab] Aspirin [Aspirin Chewable] 81 mg PO HS 08/22/16 Cholecalciferol (Vitamin D3) 5,000 unit PO WM 08/22/16 [Dialyvite Vitamin D] Cilostazol [Pletal] 50 mg PO BID 08/22/16 Nadolol [Corgard] 40 mg PO DAILY 08/22/16 Theophylline [Keith-24] 400 mg PO DAILY 08/22/16 Ferrous Fum/Vit C/B12/Stomc 1 gel PO DAILY 09/12/16 [Hematogen Softgel] Ofloxacin Ophth 0.3% [Ocuflox 2 drop OS Q2 #1 bottle 11/03/16 Ophth 0.3%] Atropine/DiphenoxylateAtropine 5 ml PO BID #60 ml 11/04/16 [Lomotil] Ondansetron [Zofran Tab] 4 mg PO Q8H #20 tab 11/04/16 Sucralfate [Carafate Oral Susp] 1 gm PO QID #120 dose 11/04/16 Polyethylene Glycol/Polyvinyl 2 drop OU Q6 bottle 11/16/16 [Artificial Tears] - Allergies Allergies/Adverse Reactions: Allergies Allergy/AdvReac Type Severity Reaction Status Date / Time latex Allergy Mild RASH Verified 09/12/16 08:16 codeine Allergy HALLUCINATI Verified 09/12/16 08:16 ON cefepime HCl [From Maxipime] AdvReac Severe Confusion Verified 09/12/16 08:16 gabapentin [From Neurontin] AdvReac Confusion Verified 09/12/16 08:16 morphine AdvReac Hallucinati Verified 09/12/16 08:16 on oxycodone HCl [From Percocet] AdvReac Hallucinati Verified 09/12/16 08:16 on Review of Systems ROS Statement: Except As Marked, All Systems Reviewed And Found Negative Constitutional: Negative for: Fever, Chills Cardiovascular: Negative for: Chest Pain, Palpitations Respiratory: Negative for: Cough, Shortness of Breath Gastrointestinal: Positive for: Abdominal Pain, Diarrhea. Negative for: Nausea , Vomiting, Rectal Pain Genitourinary Male: Negative for: Dysuria Neurological: Negative for: Weakness, Numbness Physical Exam - Reviewed Nursing Documentation Reviewed: Yes Vital Signs Reviewed: Yes - Physical Exam Appears: Positive for: Uncomfortable Head Exam: Positive for: ATRAUMATIC, NORMAL INSPECTION, NORMOCEPHALIC Eye Exam: Positive for: Normal appearance, Other (pt is legall bilnd) Neck: Positive for: Normal, Painless ROM, Supple Cardiovascular/Chest: Positive for: Regular Rate, Rhythm, Chest Non Tender. Negative for: Edema, Gallop, Murmur, Bradycardia, Tachycardia Respiratory: Positive for: Normal Breath Sounds. Negative for: Decreased Breath Sounds, Accessory Muscle Use, Crackles, Rales, Rhonchi, Stridor, Wheezing Gastrointestinal/Abdominal: Positive for: Bowel Sounds, Soft, Other (well healed ex lap scar). Negative for: Tenderness Back: Positive for: Normal Inspection. Negative for: L CVA Tenderness, R CVA Tenderness Extremity: Positive for: Normal ROM. Negative for: Tenderness, Pedal Edema Neurologic/Psych: Positive for: Alert, national account director II-XII, Oriented. Negative for: Motor/Sensory Deficits - Laboratory Results Result Diagrams: 11/22/16 15:40 11/22/16 15:40 - ECG ECG: Positive for: Interpreted By Me ECG Rhythm: Positive for: Normal QRS, Normal ST Segment, Sinus Rhythm, ST/T Changes (twi in avf, v5 and v6) O2 Sat by Pulse Oximetry: 99 Pulse Ox Interpretation: Normal Disposition - Clinical Impression Clinical Impression: Abdominal pain - Patient ED Disposition Is Patient to be Admitted: Transfer of Care - Disposition Disposition Time: 19:17 Condition: STABLE
[2016-11-22] MEDS ORDERED: Iohexol 240 (50 ml) PO ONE (15:03)
[2016-11-22 16:03] LABS: BASO # 0.1 K/uL (0.0-0.2); BASO % 1.2 % (0.0-2.0); EOS # 0.3 K/uL (0.0-0.7); EOS % 6.5 % (0.0-4.0); HEMATOCRIT 32.4 % (35.0-51.0); LYMPH # 1.2 K/uL (1.0-4.3); LYMPH % 24.1 % (20.0-40.0); MEAN CELL VOLUME 82.8 fl (80.0-94.0); MEAN CORPUSCULAR HEMOGLOBIN 27.3 pg (27.0-31.0); MEAN PLATELET VOLUME 8.2 fl (7.2-11.7); MONO # 0.6 K/uL (0.0-0.8); MONO % 12.9 % (0.0-10.0); NEUT # 2.7 K/uL (1.8-7.0); NEUT % 55.3 % (50.0-75.0); NRBC % 0.1 % (0.0-0.0); RED CELL DISTRIBUTION WIDTH 16.5 % (11.5-14.5); WHITE BLOOD COUNT 4.9 K/uL (4.8-10.8)
[2016-11-22 16:16] LABS: ALB/GLOB RATIO 1.1 (1.0-2.1); ALKALINE PHOSPHATASE 108 U/L (38-126); ALT/SGPT 28 U/L (21-72); AMYLASE 93 U/L (30-110); AST/SGOT 17 U/L (17-59); BILIRUBIN,TOTAL 0.3 mg/dl (0.2-1.3); BLOOD UREA NITROGEN 13 mg/dl (9-20); CALCIUM 9.1 mg/dL (8.4-10.2); CARBON DIOXIDE 21 mmol/L (22-30); CHLORIDE 103 mmol/L (98-107); GFR AFRICAN-AMERICAN > 60; GLUCOSE,RANDOM 248 mg/dL (75-110); LIPASE 14 U/L (23-300); POTASSIUM 3.3 MMOL/L (3.6-5.0); SODIUM 137 mmol/l (132-148); TOTAL PROTEIN 6.8 G/DL (6.3-8.2)
[2016-11-22] MEDS ORDERED: Iohexol 300 50 ML ONE (17:43)
[2016-11-22] MEDS ORDERED: Sodium Chloride 0.9% 0 ML IV ONE (17:48)
[2016-11-22 18:04] LABS: RBC URINE 1 /hpf (0-3); URINE BILIRUBIN NEGATIVE (NEGATIVE); URINE BLOOD NEGATIVE (NEGATIVE); URINE COLOR YELLOW (YELLOW); URINE GLUCOSE (UA) 150 mg/dL (Normal); URINE KETONE NEGATIVE (NEGATIVE); URINE LEUKOCYTE ESTERASE NEG Leu/uL (Negative); URINE PROTEIN 100 mg/dL (NEGATIVE); URINE UROBILINOGEN 0.2-1.0 mg/dL (0.2-1.0); WBC URINE 1 /hpf (0-5)
--- NOTE | 2016-11-22 19:18 | ED PDOC ---
- Laboratory Results Result Diagrams: 11/22/16 15:40 11/22/16 15:40 - ECG O2 Sat by Pulse Oximetry: 99 - CT Scan/US abdomen and pelvis PO contrast only Other Rad Studies (CT/US): Read By Radiologist, Radiology Report Reviewed Medical Decision Making Medical Decision Makin:00 Patient is signed out to me by Grover Rachel MD pending CT abdomen and pelvis, reevaluation, and final disposition. Hematology: Whitney Mills MD 21:01 CT abdomen and pelvis PO contrast only read and reviewed by radiologist FINDINGS: Lower thorax: Heart size is at the upper limits of normal. There is trace pericardial effusion There are coronary calcifications. There is a 4.3 mm right middle lobe pulmonary nodule, 9.8 mm on the prior study. There is increased conspicuity of a pleural-based nodule in the right middle lobe, now 4.5 mm. (Both on image 1, series 3). There are small granulomas bilaterally. There is minimal dependent atelectasis and scarring. There is a small hiatal hernia. ABDOMEN: Liver: There are vascular calcifications in the liver. No focal hepatic lesions are identified on nonenhanced images. Gallbladder and bile ducts: The gallbladder is distended. There are dependent stones. Common bile duct is unremarkable. Pancreas: Pancreas is atrophic. Spleen: unremarkable Adrenals: There are bilateral adrenal nodules, unchanged.Kidneys and ureters are unremarkable. Kidneys and ureters: See above. Stomach and bowel: Stomach is incompletely distended which accentuates the gastric wall.Bowel rotation is normal. There is proximal small bowel wall and fold thickening. Proximal and mid small bowel is mildly dilated. There is contrast in mid and distal small bowel and in the colon. There is distal and terminal ileal wall and fold thickening. There is an ileocolic anastomosis in the right upper quadrant. There is diffuse colonic wall thickening. There is no colon obstruction. There is sigmoid diverticulosis Appendix: See stomach and bowel PELVIS: Bladder: unremarkable Reproductive: The prostate is enlarged.Seminal vesicles have the expected configuration. There are calcifications in the vas deferens. ABDOMEN and PELVIS: Intraperitoneal space: There is a small amount of free fluid in the right lower quadrant. There is no free air. There continues to be a mass in the right upper quadrant. This now measures approximately 6 x 4.7 cm, 5 x 4.4 cm on the prior study. There has been increase in the amount of calcification the mass. There is increasing inflammatory change in the adjacent mesentery. Bones/joints: OsteopeniaThere are degenerative changes in the osseus structures. Soft tissues: unremarkable Vasculature: There are multiple phleboliths. There are calcifications in the aorta and iliacs. There calcifications in small vessels in the abdomen and pelvis. Lymph nodes: There now multiple small shotty para-aortic nodes. IMPRESSION: Decrease in size of a right lower lobe pulmonary nodule suggest response to chemotherapy; slight increased conspicuity of an adjacent right middle lobe nodule; gallstones; stable adrenal nodules; right hemicolectomy; enterocolitis; increasing size of right upper quadrant mass; distended gallbladder with stones, no ductal dilatation 930PM: Pt. seen and examined at bedside, pt. c/o of continued episodes of diarrhea, but no pain at this time. Case discussed with Dr. Anum Mills, agrees with plan to admit for dehydration, IVF and potassium replacement. Will admit to hospitalist. Scribe Attestation: Documented by Selma Hogan, acting as a scribe for Kai Daniel MD. Provider Scribe Attestation: All medical record entries made by the Scribe were at my direction and personally dictated by me. I have reviewed the chart and agree that the record accurately reflects my personal performance of the history, physical exam, medical decision making, and the department course for this patient. I have also personally directed, reviewed, and agree with the discharge instructions and disposition. Disposition - Clinical Impression Clinical Impression: Abdominal pain, Enterocolitis - POA Present On Arrival: None - Disposition Disposition: Hospitalized as Observation Patient Disposition Time: 21:30 Condition: STABLE
--- NOTE | 2016-11-22 21:01 | CT ---
EXAM: CT Abdomen and Pelvis With Intravenous Contrast CLINICAL HISTORY: 76 years old, male; Pain; Abdominal pain; Generalized; Prior surgery; Surgery date: 6+ months; Surgery type: Colon ca. Surgery about 2 yrs ago; Patient HX: Colon ca. Patient on chemo TECHNIQUE: Axial computed tomography images of the abdomen and pelvis with intravenous contrast. This CT exam was performed using one or more of the following dose reduction techniques: automated exposure control, adjustment of the mA and/or kV according to patient size, and/or use of iterative reconstruction technique. Coronal and sagittal reformatted images were created and reviewed. EXAM DATE/TIME: 11/22/2016 7:31 PM COMPARISON: CT - ABD PELVIS PO CONTRAST ONLY 03/17/2016 10:39:40 AM FINDINGS: Lower thorax: Heart size is at the upper limits of normal. There is trace pericardial effusion There are coronary calcifications. There is a 4.3 mm right middle lobe pulmonary nodule, 9.8 mm on the prior study. There is increased conspicuity of a pleural-based nodule in the right middle lobe, now 4.5 mm. (Both on image 1, series 3). There are small granulomas bilaterally. There is minimal dependent atelectasis and scarring. There is a small hiatal hernia. ABDOMEN: Liver: There are vascular calcifications in the liver. No focal hepatic lesions are identified on nonenhanced images. Gallbladder and bile ducts: The gallbladder is distended. There are dependent stones. Common bile duct is unremarkable. Pancreas: Pancreas is atrophic. Spleen: unremarkable Adrenals: There are bilateral adrenal nodules, unchanged.Kidneys and ureters are unremarkable. Kidneys and ureters: See above. Stomach and bowel: Stomach is incompletely distended which accentuates the gastric wall.Bowel rotation is normal. There is proximal small bowel wall and fold thickening. Proximal and mid small bowel is mildly dilated. There is contrast in mid and distal small bowel and in the colon. There is distal and terminal ileal wall and fold thickening. There is an ileocolic anastomosis in the right upper quadrant. There is diffuse colonic wall thickening. There is no colon obstruction. There is sigmoid diverticulosis Appendix: See stomach and bowel PELVIS: Bladder: unremarkable Reproductive: The prostate is enlarged.Seminal vesicles have the expected configuration. There are calcifications in the vas deferens. ABDOMEN and PELVIS: Intraperitoneal space: There is a small amount of free fluid in the right lower quadrant. There is no free air. There continues to be a mass in the right upper quadrant. This now measures approximately 6 x 4.7 cm, 5 x 4.4 cm on the prior study. There has been increase in the amount of calcification the mass. There is increasing inflammatory change in the adjacent mesentery. Bones/joints: OsteopeniaThere are degenerative changes in the osseus structures. Soft tissues: unremarkable Vasculature: There are multiple phleboliths. There are calcifications in the aorta and iliacs. There calcifications in small vessels in the abdomen and pelvis. Lymph nodes: There now multiple small shotty para-aortic nodes. IMPRESSION: Decrease in size of a right lower lobe pulmonary nodule suggest response to chemotherapy; slight increased conspicuity of an adjacent right middle lobe nodule; gallstones; stable adrenal nodules; right hemicolectomy; enterocolitis; increasing size of right upper quadrant mass; distended gallbladder with stones, no ductal dilatation Additional findings as described above.
[2016-11-22] MEDS ORDERED: Potassium CL 10mEq/100ml 100 ML IVPB ONE (21:09)
[2016-11-22] MEDS: Sodium Chloride 0.9% 1,000 ML IV SCH (21:47)
--- NOTE | 2016-11-22 23:51 | CP.PCM.HP ---
"History of Present Illness - History of Present Illness History of Present Illness: Chief Complaint: Abdominal pain with Diarrhea HPI: 76 years old male sent to Ed by oncology with hx of CHF, COPD, DM II and Colon cancer on Chemotherapy, comes with worsening of his diarrhea which he has had for 4 weeks. He thinks that it is associated with his Chemotherapy. He also refers intense periumbilical abdominal pain which is continuous but increases with bowel movement and decreases some time after. No fever, chills, nausea, vomits, Chest Pain nor urinary symptoms. 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 PSH: Coronary Stent, Tonsillectomy, Colon resection SH: No illegal drug use; Former smoker; no alcohol use; Live with family FH: Unknown family hx Allergies: Latex, Codeine; Cefepime; Gabapentin; Morphine; oxycodone Present on Admission - Present on Admission Any Indicators Present on Admission: Yes History of DVT/PE: No History of Uncontrolled Diabetes: Yes Urinary Catheter: No Decubitus Ulcer Present: No Review of Systems - Constitutional Constitutional: absent: Anorexia, Chills, Fatigue, Fever, Lethargy - EENT Eyes: Requires Corrective Lenses. absent: Blurred Vision, Diplopia, Photophobia Ears: absent: Decreased Hearing, Ear Discharge, Ear Pain, Tinnitus Nose/Mouth/Throat: absent: Epistaxis, Nasal Congestion, Nasal Discharge - Cardiovascular Cardiovascular: absent: Chest Pain, Dyspnea, Edema - Respiratory Respiratory: Cough, Dyspnea. absent: Wheezing - Gastrointestinal Gastrointestinal: Abdominal Pain, Cramping, Diarrhea. absent: Hematochezia, Melena, Nausea, Vomiting - Genitourinary Genitourinary: absent: Dysuria, Flank Pain, Hematuria, Urinary Frequency - Musculoskeletal Musculoskeletal: Back Pain, Muscle Weakness. absent: Muscle Cramps - Integumentary Integumentary: absent: Pruritus, Rash, Skin Ulcer, Sores, Striae, Swelling - Neurological Neurological: Weakness. absent: Dizziness, Focal Weakness, Memory Loss - Psychiatric Psychiatric: absent: Anxiety, Depression, Panic Attacks - Endocrine Endocrine: absent: Palpitations, Polydipsia, Polyphagia, Polyuria - Hematologic/Lymphatic Hematologic: absent: Easy Bleeding, Easy Bruising Past Patient History - Infectious Disease Hx of Infectious Diseases: None - Tetanus Immunizations Tetanus Immunization: Unknown - Past Medical History & Family History Past Medical History?: Yes - Past Social History Smoking Status: Former Smoker Chewing Tobacco Use: No Cigar Use: No Alcohol: Occasional Drugs: Denies Home Situation {Lives}: With Family - CARDIAC Hx Congestive Heart Failure: Yes Hx Hypercholesterolemia: Yes Hx Hypertension: Yes Hx Peripheral Edema: No - PULMONARY Hx Chronic Obstructive Pulmonary Disease (COPD): Yes Hx Emphysema: Yes - NEUROLOGICAL Hx Neurological Disorder: No - HEENT Hx HEENT Problems: Yes 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,L eye glass) Hx Cataracts: Yes Hx Glaucoma: Yes Other/Comment: Left eye prothesis - RENAL Hx Chronic Kidney Disease: No - ENDOCRINE/METABOLIC Hx Endocrine Disorders: Yes Hx Diabetes Mellitus Type 2: Yes Other/Comment: diabetic neuropathy - HEMATOLOGICAL/ONCOLOGICAL Hx Anemia: Yes Hx Human Immunodeficiency Virus (HIV): No - INTEGUMENTARY Hx Dermatological Problems: No - MUSCULOSKELETAL/RHEUMATOLOGICAL Hx Arthritis: Yes - GASTROINTESTINAL Hx Gastrointestinal Disorders: Yes Hx Bowel Surgery: Yes (colon resection) Hx Gastroesophageal Reflux: Yes Hx Ulcer: Yes (gastric) Other/Comment: HIATAL HERNIA - GENITOURINARY/GYNECOLOGICAL Hx Genitourinary Disorders: No - PSYCHIATRIC Hx Anxiety: Yes - SURGICAL HISTORY Hx Coronary Stent: Yes Hx Tonsillectomy: Yes - ANESTHESIA Hx Anesthesia: Yes Hx Anesthesia Reactions: No Hx Malignant Hyperthermia: No Meds Allergies/Adverse Reactions: Allergies Allergy/AdvReac Type Severity Reaction Status Date / Time latex Allergy Mild RASH Verified 09/12/16 08:16 codeine Allergy HALLUCINATI Verified 09/12/16 08:16 ON cefepime HCl [From Maxipime] AdvReac Severe Confusion Verified 09/12/16 08:16 gabapentin [From Neurontin] AdvReac Confusion Verified 09/12/16 08:16 morphine AdvReac Hallucinati Verified 09/12/16 08:16 on oxycodone HCl [From Percocet] AdvReac Hallucinati Verified 09/12/16 08:16 on Physical Exam - Constitutional Appears: No Acute Distress - Head Exam Head Exam: ATRAUMATIC, NORMAL INSPECTION, NORMOCEPHALIC - Eye Exam Additional comments: Prosthesis in the left eye and legally blind in the right eye. - ENT Exam ENT Exam: Mucous Membranes Moist, Normal External Ear Exam, Normal Oropharynx - Neck Exam Neck exam: Positive for: Full Rom, Normal Inspection. Negative for: Lymphadenopathy, Tenderness - Respiratory Exam Respiratory Exam: Clear to Auscultation Bilateral. absent: Rales, Rhonchi, Wheezes - Cardiovascular Exam Cardiovascular Exam: REGULAR RHYTHM, RRR, +S1, +S2 Additional comments: Systolic murmur at base III/ - GI/Abdominal Exam GI & Abdominal Exam: Hyperactive Bowel Sounds, Soft, Tenderness Additional comments: Mild tenderness at the whole abdomen, no guarding nor rebound tenderness. - Rectal Exam Rectal Exam: Deferred - Extremities Exam Extremities exam: Positive for: full ROM, normal inspection. Negative for: calf tenderness, pedal edema - Back Exam Back exam: NORMAL INSPECTION. absent: CVA tenderness (L), CVA tenderness (R) - Neurological Exam Neurological exam: Alert, CN II-XII Intact, Oriented x3, Reflexes Normal - Psychiatric Exam Psychiatric exam: Normal Affect, Normal Mood - Skin Skin Exam: Dry, Intact, Normal Color, Warm Results - Vital Signs Recent Vital Signs: Last Vital Signs Temp 98.3 F 11/22/16 14:12 Pulse 79 11/22/16 14:12 Resp 22 11/22/16 14:12 BP 133/78 11/22/16 14:12 Pulse Ox 99 11/22/16 21:47 - Labs Result Diagrams: 11/23/16 06:00 11/23/16 06:00 - Imaging and Cardiology CT scan - abdomen Additional comment: FINDINGS: Lower thorax: Heart size is at the upper limits of normal. There is trace pericardial effusion There are coronary calcifications. There is a 4.3 mm right middle lobe pulmonary nodule, 9.8 mm on the prior study. There is increased conspicuity of a pleural-based nodule in the right middle lobe, now 4.5 mm. (Both on image 1, series 3). There are small granulomas bilaterally. There is minimal dependent atelectasis and scarring. There is a small hiatal hernia. ABDOMEN: Liver: There are vascular calcifications in the liver. No focal hepatic lesions are identified on nonenhanced images. Gallbladder and bile ducts: The gallbladder is distended. There are dependent stones. Common bile duct is unremarkable. Pancreas: Pancreas is atrophic. Spleen: unremarkable Adrenals: There are bilateral adrenal nodules, unchanged.Kidneys and ureters are unremarkable. Kidneys and ureters: See above. Stomach and bowel: Stomach is incompletely distended which accentuates the gastric wall.Bowel rotation is normal. There is proximal small bowel wall and fold thickening. Proximal and mid small bowel is mildly dilated. There is contrast in mid and distal small bowel and in the colon. There is CASSANDRA JOSEPH | Final Radiology Report CONFIDENTIALITY STATEMENT This report is intended only for use by the referring physician, and only in accordance with law. If you received this in error, call [phone]. Page 2 of 2 distal and terminal ileal wall and fold thickening. There is an ileocolic anastomosis in the right upper quadrant. There is diffuse colonic wall thickening. There is no colon obstruction. There is sigmoid diverticulosis Appendix: See stomach and bowel PELVIS: Bladder: unremarkable Reproductive: The prostate is enlarged.Seminal vesicles have the expected configuration. There are calcifications in the vas deferens. ABDOMEN and PELVIS: Intraperitoneal space: There is a small amount of free fluid in the right lower quadrant. There is no free air. There continues to be a mass in the right upper quadrant. This now measures approximately 6 x 4.7 cm, 5 x 4.4 cm on the prior study. There has been increase in the amount of calcification the mass. There is increasing inflammatory change in the adjacent mesentery. Bones/joints: OsteopeniaThere are degenerative changes in the osseus structures. Soft tissues: unremarkable Vasculature: There are multiple phleboliths. There are calcifications in the aorta and iliacs. There calcifications in small vessels in the abdomen and pelvis. Lymph nodes: There now multiple small shotty para-aortic nodes. IMPRESSION: Decrease in size of a right lower lobe pulmonary nodule suggest response to chemotherapy; slight increased conspicuity of an adjacent right middle lobe nodule; gallstones; stable adrenal nodules; right hemicolectomy; enterocolitis; increasing size of right upper quadrant mass; distended gallbladder with stones, no ductal dilatation Assessment & Plan - Assessment and Plan (Free Text) Assessment: #. Acute Diarrhea #. Dehydration #. Hypokalemia #. Anemia #. HTN #. DM II #. Colon Cancer Plan: 76 years old male sent to Ed by oncology with hx of CHF, COPD, DM II and Colon cancer on Chemotherapy, comes with worsening of his diarrhea which he has had for 4 weeks. No fever, chills, nausea, vomits, Chest Pain nor urinary symptoms. #. Acute Diarrhea Probably secondary to Chemotherapy r/o C Diff - stool for C Diff -Stool for C&S #. Dehydration due to the Diarrhea - IV normal Saline 100mls/hr - follow labs #. Hypokalemia caused by the Diarrhea - Potassium replaced - Follow Electrolytes #. Anemia of chronic disease - Hematology on consult - Follow Hb #. HTN - Treat with Coreg/ Cozaar and norvasc #. DM II- Diabetic diet - Novolog sliding scale with accuchecks ACHS #. Colon Cancer - Consult Dr Mills Oncology #. DVT Protocol with SCD #. Code Statu: Full - Date & Time Date: 11/22/16 Time: 23:51"
[2016-11-22] MEDS ORDERED: ACETAMINOPHEN PO PRN (23:59)
[2016-11-23 06:43] LABS: BASO # 0.1 K/uL (0.0-0.2); BASO % 1.1 % (0.0-2.0); EOS # 0.3 K/uL (0.0-0.7); EOS % 6.5 % (0.0-4.0); HEMATOCRIT 27.5 % (35.0-51.0); LYMPH # 1.5 K/uL (1.0-4.3); LYMPH % 32.6 % (20.0-40.0); MEAN CELL VOLUME 81.5 fl (80.0-94.0); MEAN CORPUSCULAR HEMOGLOBIN 26.9 pg (27.0-31.0); MEAN PLATELET VOLUME 7.7 fl (7.2-11.7); MONO # 0.6 K/uL (0.0-0.8); MONO % 12.4 % (0.0-10.0); NEUT # 2.1 K/uL (1.8-7.0); NEUT % 47.4 % (50.0-75.0); NRBC % 0.1 % (0.0-0.0); RED CELL DISTRIBUTION WIDTH 16.2 % (11.5-14.5); WHITE BLOOD COUNT 4.5 K/uL (4.8-10.8)
[2016-11-23 06:51] LABS: CHLORIDE 109 mmol/L (98-107); POTASSIUM 3.2 MMOL/L (3.6-5.0); SODIUM 141 mmol/l (132-148)
[2016-11-23 06:53] LABS: GFR AFRICAN-AMERICAN > 60
[2016-11-23 06:54] LABS: BLOOD UREA NITROGEN 10 mg/dl (9-20); CARBON DIOXIDE 23 mmol/L (22-30); GLUCOSE,RANDOM 190 mg/dL (75-110)
[2016-11-23 06:55] LABS: CALCIUM 8.6 mg/dL (8.4-10.2)
[2016-11-23] MEDS ORDERED: CHOLECALCIFEROL PO SCH (07:30)
[2016-11-23] MEDS: Insulin Lispro (humaLOG) 100 Units/ml Inj SC SCH ×7 (08:11→22:51)
--- NOTE | 2016-11-23 08:16 | CARD ---
APPROVED REPORT EKG Measurement Heart [id number] <Conclusion> Sinus rhythm with 1st degree AV block Septal infarct, age undetermined T wave abnormality, consider lateral ischemia Abnormal ECG
[2016-11-23] MEDS ORDERED: THEOPHYLLINE ANHYDROUS 400 MG PO SCH (09:00)
[2016-11-23] MEDS: THEOPHYLLINE 400 MG T24(UNIPHYL) PO SCH (09:21)
[2016-11-23] MEDS: Cilostazol 50 mg Tab UD PO SCH ×2 (09:23→17:59)
--- NOTE | 2016-11-23 10:00 | CP.PCM.CON ---
History of Present Illness - History of Present Illness History of Present Illness: This is a 76 yrs old male who was diagnosed to have a colon cancer 2 yrs ago. He received chemotherapy with FOLFOX for 12 treatments. He had no neurpoahty, and tolerated it well. He has recurrence at the anastomotic site and has been getting bevacizumab and FOLFIRI. Inspite of being on lomotil pt continues to get diarrhea at first 4-5 times a day, and now almost 15-16 times He also has abdominal pain which could be from the mas or from colitis. He has lost about 10 lbs over the last 2 months I suggested to him that we should hold the chemotherapy until his diarrhea is better, he is not in favor of that, but i have told him that at this time it is not a good idea to continue the chemo now. m He is waiting for GI to see him. He has a past h/o CAD, htn,DM, blindness. Past Patient History - Infectious Disease Hx of Infectious Diseases: None - Tetanus Immunizations Tetanus Immunization: Unknown - Past Medical History & Family History Past Medical History?: Yes - Past Social History Smoking Status: Former Smoker Chewing Tobacco Use: No Cigar Use: No Alcohol: Occasional Drugs: Denies Home Situation {Lives}: With Family - CARDIAC Hx Congestive Heart Failure: Yes Hx Hypercholesterolemia: Yes Hx Hypertension: Yes Hx Peripheral Edema: No - PULMONARY Hx Chronic Obstructive Pulmonary Disease (COPD): Yes Hx Emphysema: Yes - NEUROLOGICAL Hx Neurological Disorder: No - HEENT Hx HEENT Problems: Yes 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,L eye glass) Hx Cataracts: Yes Hx Glaucoma: Yes Other/Comment: Left eye prothesis - RENAL Hx Chronic Kidney Disease: No - ENDOCRINE/METABOLIC Hx Endocrine Disorders: Yes Hx Diabetes Mellitus Type 2: Yes Other/Comment: diabetic neuropathy - HEMATOLOGICAL/ONCOLOGICAL Hx Anemia: Yes Hx Human Immunodeficiency Virus (HIV): No - INTEGUMENTARY Hx Dermatological Problems: No - MUSCULOSKELETAL/RHEUMATOLOGICAL Hx Arthritis: Yes - GASTROINTESTINAL Hx Gastrointestinal Disorders: Yes Hx Bowel Surgery: Yes (colon resection) Hx Gastroesophageal Reflux: Yes Hx Ulcer: Yes (gastric) Other/Comment: HIATAL HERNIA - GENITOURINARY/GYNECOLOGICAL Hx Genitourinary Disorders: No - PSYCHIATRIC Hx Anxiety: Yes - SURGICAL HISTORY Hx Coronary Stent: Yes Hx Tonsillectomy: Yes - ANESTHESIA Hx Anesthesia: Yes Hx Anesthesia Reactions: No Hx Malignant Hyperthermia: No Meds Allergies/Adverse Reactions: Allergies Allergy/AdvReac Type Severity Reaction Status Date / Time latex Allergy Mild RASH Verified 09/12/16 08:16 codeine Allergy HALLUCINATI Verified 09/12/16 08:16 ON cefepime HCl [From Maxipime] AdvReac Severe Confusion Verified 09/12/16 08:16 gabapentin [From Neurontin] AdvReac Confusion Verified 09/12/16 08:16 morphine AdvReac Hallucinati Verified 09/12/16 08:16 on oxycodone HCl [From Percocet] AdvReac Hallucinati Verified 09/12/16 08:16 on - Medications Medications: Current Medications Acetaminophen (Tylenol 325mg Tab) 975 mg PO BID PRN PRN Reason: pain Last Admin: 11/23/16 04:37 Dose: 975 mg Amlodipine Besylate (Norvasc) 5 mg PO HS [facility] Ascorbic Acid (Vitamin C 250 Mg Tab) 250 mg PO BID [facility] Last Admin: 11/23/16 09:20 Dose: 250 mg Aspirin (Ecotrin) 81 mg PO DAILY [facility] Last Admin: 11/23/16 09:22 Dose: 81 mg Atorvastatin Calcium (Lipitor) 40 mg PO [facility] Cholecalciferol (Vitamin D) 5,000 iu PO [facility] Last Admin: 11/23/16 09:24 Dose: Not Given Cilostazol (Pletal) 50 mg PO BID [facility] Last Admin: 11/23/16 09:23 Dose: 50 mg Famotidine (Pepcid) 20 mg PO BID [facility] Last Admin: 11/23/16 09:21 Dose: 20 mg Ferrous Sulfate (Feosol) 325 mg PO BID [facility] Last Admin: 11/23/16 09:22 Dose: 325 mg Sodium Chloride (Sodium Chloride 0.9%) 1,000 mls @ 100 mls/hr IV .Q10H [facility] Stop: 11/23/16 21:13 Last Admin: 11/22/16 21:47 Dose: 100 mls/hr Potassium Chloride (Potassium Chloride 10 Meq/100 Ml) 100 mls @ 100 mls/hr IVPB Q1 [facility] Stop: 11/23/16 12:59 Insulin Human Lispro (Humalog) 5 units SC TID [facility] Last Admin: 11/23/16 09:24 Dose: Not Given Insulin Human Lispro (Humalog) 0 units SC ACHS [facility] PRN Reason: Protocol Last Admin: 11/23/16 08:11 Dose: Not Given Losartan Potassium (Cozaar) 100 mg PO HS [facility] Nadolol (Corgard) 40 mg PO DAILY [facility] Last Admin: 11/23/16 09:21 Dose: 40 mg Theophylline (Uniphyl) 400 mg PO DAILY [facility] Last Admin: 11/23/16 09:21 Dose: 400 mg Physical Exam - Additional Findings Additional findings: Physical exam; Pt is alert and well oriented neck supple, no adenopathy Chest; Clear, no murmur Heart; RSR,. no murmur Abd; Some generalised abdominal tenderness, no mass palpable Results - Vital Signs Recent Vital Signs: Last Vital Signs Temp 98.3 F 11/22/16 14:12 Pulse 82 11/23/16 01:46 Resp 16 11/23/16 01:46 BP 134/52 L 11/23/16 01:46 Pulse Ox 97 11/23/16 01:46 - Labs Result Diagrams: 11/23/16 06:00 11/23/16 06:00 Labs: Laboratory Results - last 24 hr 11/22/16 11/23/16 11/23/16 23:50 06:00 06:00 WBC 4.5 L RBC 3.37 L Hgb 9.1 L Hct 27.5 L MCV 81.5 MCH 26.9 L MCHC 33.0 RDW 16.2 H Plt Count 174 MPV 7.7 Neut % (Auto) 47.4 L Lymph % (Auto) 32.6 [place] % (Auto) 12.4 H Eos % (Auto) 6.5 H Baso % (Auto) 1.1 Neut # 2.1 Lymph # 1.5 [place] # 0.6 Eos # 0.3 Baso # 0.1 Sodium 141 Potassium 3.2 L Chloride 109 H Carbon Dioxide 23 Anion Gap 12 BUN 10 Creatinine 0.9 Est GFR ( Amer) > 60 Est GFR (Non-Af Amer) > 60 Random Glucose 190 H Calcium 8.6 C. difficile Ag & Toxin Negative Assessment & Plan - Assessment and Plan (Free Text) Assessment: Impression; Colon cancer with local metastasis Plan: Plan; Would suggest Kcl replacement, and a GI consult to see if he is a candidate for colonoscopy and octreotide, - Date & Time Date: 11/23/16 Time: 10:07
[2016-11-23] MEDS: Potassium CL 10mEq/100ml 100 ML IVPB SCH ×3 (10:53→13:18)
[2016-11-23] MEDS: Sodium Chloride 0.9% 1,000 ML IV SCH ×2 (11:55→18:02)
[2016-11-23] MEDS: Atropine-Diphenoxylate 0.025-2.5 mg Tab PO PRN (13:17)
--- NOTE | 2016-11-23 16:03 | CP.PCM.PN ---
Subjective - Date & Time of Evaluation Date of Evaluation: 11/23/16 Time of Evaluation: 11:30 - Subjective Subjective: Patient seen and evaluated bedside. Chronically ill appearing male , pale complaining of multiple episodes of diarrhea and abdominal cramps. Denies any rectal bleeding, nausea or vomiting Objective - Vital Signs/Intake and Output Vital Signs (last 24 hours): Temp Pulse Resp BP Pulse Ox 98.7 F 77 19 190/80 H 98 11/23/16 12:00 11/23/16 15:39 11/23/16 12:00 11/23/16 15:39 11/23/16 12:00 - Medications Medications: Current Medications Acetaminophen (Tylenol 325mg Tab) 975 mg PO BID PRN PRN Reason: pain Last Admin: 11/23/16 10:23 Dose: 975 mg Amlodipine Besylate (Norvasc) 5 mg PO HS [facility] Ascorbic Acid (Vitamin C 250 Mg Tab) 250 mg PO BID [facility] Last Admin: 11/23/16 09:20 Dose: 250 mg Aspirin (Ecotrin) 81 mg PO DAILY [facility] Last Admin: 11/23/16 09:22 Dose: 81 mg Atorvastatin Calcium (Lipitor) 40 mg PO HS [facility] Cholecalciferol (Vitamin D) 5,000 iu PO WM [facility] Last Admin: 11/23/16 12:34 Dose: Not Given Cilostazol (Pletal) 50 mg PO BID [facility] Last Admin: 11/23/16 09:23 Dose: 50 mg Dicyclomine HCl (Bentyl) 10 mg PO QID [facility] Diphenoxylate HCl/Atropine (Lomotil 0.025-2.5 Mg Tablet) 1 tab PO QID PRN PRN Reason: Diarrhea Last Admin: 11/23/16 13:17 Dose: 1 tab Famotidine (Pepcid) 20 mg PO BID [facility] Last Admin: 11/23/16 09:21 Dose: 20 mg Ferrous Sulfate (Feosol) 325 mg PO BID [facility] Last Admin: 11/23/16 09:22 Dose: 325 mg Sodium Chloride (Sodium Chloride 0.9%) 1,000 mls @ 100 mls/hr IV .Q10H [facility] Stop: 11/23/16 21:13 Last Admin: 11/23/16 11:55 Dose: 100 mls/hr Insulin Human Lispro (Humalog) 5 units SC TID [facility] Last Admin: 11/23/16 14:21 Dose: Not Given Insulin Human Lispro (Humalog) 0 units SC ACHS [facility] PRN Reason: Protocol Last Admin: 11/23/16 14:21 Dose: Not Given Losartan Potassium (Cozaar) 100 mg PO HS [facility] Nadolol (Corgard) 40 mg PO DAILY [facility] Last Admin: 11/23/16 09:21 Dose: 40 mg Theophylline (Uniphyl) 400 mg PO DAILY [facility] Last Admin: 11/23/16 09:21 Dose: 400 mg - Labs Labs: 11/23/16 06:00 11/23/16 06:00 - Constitutional Appears: No Acute Distress, Chronically Ill - Head Exam Head Exam: ATRAUMATIC, NORMOCEPHALIC - Eye Exam Additional comments: left eye prosthesis right eye pupil reactive to light - ENT Exam ENT Exam: Mucous Membranes Moist, Normal Exam - Neck Exam Neck Exam: Full ROM, Normal Inspection - Respiratory Exam Respiratory Exam: Clear to Ausculation Bilateral, NORMAL BREATHING PATTERN. absent: Rales, Wheezes - Cardiovascular Exam Cardiovascular Exam: REGULAR RHYTHM, RRR, +S1, +S2. absent: JVD - GI/Abdominal Exam GI & Abdominal Exam: Soft, Tenderness (with palpation ), Normal Bowel Sounds. absent: Distended, Guarding, Rigid, Rebound - Rectal Exam Rectal Exam: Deferred - Extremities Exam Extremities Exam: Normal Capillary Refill, Normal Inspection. absent: Pedal Edema - Back Exam Back Exam: NORMAL INSPECTION - Neurological Exam Neurological Exam: Alert, Awake, Oriented x3 - Psychiatric Exam Psychiatric exam: Normal Affect - Skin Skin Exam: Dry, Pallor, Warm Assessment and Plan - Assessment and Plan (Free Text) Assessment: 76 years old male with hx of CHF, COPD, DM II and metastatic Colon cancer on Chemotherapy, sent to ED by oncology with worsening of his diarrhea which he has had for 4 weeks. No fever, chills, nausea, vomits, Chest Pain nor urinary symptoms.Patient had almost 10 episodes of watery diarrhea in ED and K 3.2. Patient admitted for dehydration , generalized weakness andf hypokalemia. 1.Uncontrolled Acute Diarrhe Probably secondary to Chemotherapy C Diff- negative Started Lomotil and Bentyl Continue IVF and Kcl replacement GI consulted 2.Dehydration due to the Diarrhea Continue IV fluids 3. Hypokalemia secondary to diarrhea Replace K 4. Anemia of chronic disease H& H stable 5.HTN uncontrolled Continue Coreg/ Cozaar and norvasc 6. DM II Diabetic diet Novolog sliding scale with accuchecks ACHS 7. Colon Cancer Consult with Dr Mills Oncology 8. DVT Protocol SCD
[2016-11-23] MEDS ORDERED: Potassium Chloride 20 mEq/15 ml LIQ UD PO ONE (16:04)
[2016-11-24 09:43] LABS: HEMATOCRIT 28.2 % (35.0-51.0); MEAN CELL VOLUME 82.1 fl (80.0-94.0); MEAN CORPUSCULAR HEMOGLOBIN 26.9 pg (27.0-31.0); MEAN CORPUSCULAR HGB CONC 32.7 g/dL (33.0-37.0); RED CELL DISTRIBUTION WIDTH 16.7 % (11.5-14.5); WHITE BLOOD COUNT 4.3 K/uL (4.8-10.8)
--- NOTE | 2016-11-24 09:45 | CP.PCM.PN ---
Subjective - Date & Time of Evaluation Date of Evaluation: 11/24/16 Time of Evaluation: 09:38 - Subjective Subjective: Pt is feeling better today. With hydration,lomotil and bentyl, his diqarrhea and abdominal cramps are better. He only had 2 loose BM since last night, and was able to sleep all night. He slipped as he went to close the door in the bathroom, anmd bumped his head. he dis not fall. I have asked him not to go to the bathroom by himself. I explained to him that his tumor has not responded to the chemotherapy, and that the chemotherapy is making him even more sick with the diarrhea. I want to give him a 2 week break and see how he does without the chemo. If he does well will give him capecitabine only, not FOLFIRI/meryl. Objective - Vital Signs/Intake and Output Vital Signs (last 24 hours): Temp Pulse Resp BP Pulse Ox 98.3 F 67 20 179/66 H 98 11/24/16 08:27 11/24/16 08:27 11/24/16 08:27 11/24/16 08:27 11/24/16 08:27 - Medications Medications: Current Medications Acetaminophen (Tylenol 325mg Tab) 975 mg PO BID PRN PRN Reason: pain Last Admin: 11/24/16 05:18 Dose: 975 mg Amlodipine Besylate (Norvasc) 5 mg PO [facility] Last Admin: 11/23/16 22:49 Dose: Not Given Ascorbic Acid (Vitamin C 250 Mg Tab) 250 mg PO BID [facility] Last Admin: 11/23/16 18:00 Dose: 250 mg Aspirin (Ecotrin) 81 mg PO DAILY [facility] Last Admin: 11/23/16 09:22 Dose: 81 mg Atorvastatin Calcium (Lipitor) 40 mg PO HS [facility] Last Admin: 11/23/16 23:05 Dose: 40 mg Cholecalciferol (Vitamin D) 5,000 iu PO WM [facility] Last Admin: 11/23/16 18:01 Dose: 5,000 iu Cilostazol (Pletal) 50 mg PO BID [facility] Last Admin: 11/23/16 17:59 Dose: 50 mg Dicyclomine HCl (Bentyl) 10 mg PO QID [facility] Last Admin: 11/23/16 22:50 Dose: 10 mg Diphenoxylate HCl/Atropine (Lomotil 0.025-2.5 Mg Tablet) 1 tab PO QID PRN PRN Reason: Diarrhea Last Admin: 11/23/16 13:17 Dose: 1 tab Famotidine (Pepcid) 20 mg PO BID [facility] Last Admin: 11/23/16 17:59 Dose: 20 mg Ferrous Sulfate (Feosol) 325 mg PO BID [facility] Last Admin: 11/23/16 19:00 Dose: 325 mg Insulin Human Lispro (Humalog) 5 units SC TID [facility] Last Admin: 11/23/16 17:59 Dose: Not Given Insulin Human Lispro (Humalog) 0 units SC ACHS [facility] PRN Reason: Protocol Last Admin: 11/23/16 22:51 Dose: Not Given Losartan Potassium (Cozaar) 100 mg PO HS [facility] Last Admin: 11/23/16 22:50 Dose: Not Given Nadolol (Corgard) 40 mg PO DAILY [facility] Last Admin: 11/23/16 09:21 Dose: 40 mg Theophylline (Uniphyl) 400 mg PO DAILY [facility] Last Admin: 11/23/16 09:21 Dose: 400 mg
[2016-11-24] MEDS: THEOPHYLLINE 400 MG T24(UNIPHYL) PO SCH (09:52)
[2016-11-24] MEDS: Cilostazol 50 mg Tab UD PO SCH ×2 (09:52→16:02)
[2016-11-24 10:16] LABS: CHLORIDE 109 mmol/L (98-107); POTASSIUM 3.2 MMOL/L (3.6-5.0); SODIUM 141 mmol/l (132-148)
[2016-11-24 10:19] LABS: BLOOD UREA NITROGEN 6 mg/dl (9-20); CARBON DIOXIDE 23 mmol/L (22-30); GFR AFRICAN-AMERICAN > 60; GLUCOSE,RANDOM 193 mg/dL (75-110)
[2016-11-24 10:20] LABS: CALCIUM 8.6 mg/dL (8.4-10.2)
[2016-11-24] MEDS: Insulin Lispro (humaLOG) 100 Units/ml Inj SC SCH ×2 (13:11)
[2016-11-24] MEDS ORDERED: Potassium Chloride 20 mEq/15 ml LIQ UD PO ONE (14:31)
--- NOTE | 2016-11-24 14:34 | CP.PCM.DIS ---
Provider - Provider Date of Admission: 11/24/16 01:54 Attending physician: Brent Benz Primary care physician: Dr. Paige Consults: oncology consult GI consult Time Spent in preparation of Discharge (in minutes): 20 Hospital Course - Lab Results Lab Results: Most Recent Lab Values WBC 4.3 K/uL (4.8-10.8) L 11/24/16 09:32 RBC 3.43 Mil/uL (4.40-5.90) L 11/24/16 09:32 Hgb 9.2 g/dL (12.0-18.0) L 11/24/16 09:32 Hct 28.2 % (35.0-51.0) L 11/24/16 09:32 MCV 82.1 fl (80.0-94.0) 11/24/16 09:32 MCH 26.9 pg (27.0-31.0) L 11/24/16 09:32 MCHC 32.7 g/dL (33.0-37.0) L 11/24/16 09:32 RDW 16.7 % (11.5-14.5) H 11/24/16 09:32 Plt Count 184 K/uL (130-400) 11/24/16 09:32 MPV 7.7 fl (7.2-11.7) 11/23/16 06:00 Neut % (Auto) 47.4 % (50.0-75.0) L 11/23/16 06:00 Lymph % (Auto) 32.6 % (20.0-40.0) 11/23/16 06:00 [place] % (Auto) 12.4 % (0.0-10.0) H 11/23/16 06:00 Eos % (Auto) 6.5 % (0.0-4.0) H 11/23/16 06:00 Baso % (Auto) 1.1 % (0.0-2.0) 11/23/16 06:00 Neut # 2.1 K/uL (1.8-7.0) 11/23/16 06:00 Lymph # 1.5 K/uL (1.0-4.3) 11/23/16 06:00 [place] # 0.6 K/uL (0.0-0.8) 11/23/16 06:00 Eos # 0.3 K/uL (0.0-0.7) 11/23/16 06:00 Baso # 0.1 K/uL (0.0-0.2) 11/23/16 06:00 Sodium 141 mmol/l (132-148) 11/24/16 09:32 Potassium 3.2 MMOL/L (3.6-5.0) L 11/24/16 09:32 Chloride 109 mmol/L (98-107) H 11/24/16 09:32 Carbon Dioxide 23 mmol/L (22-30) 11/24/16 09:32 Anion Gap 12 (10-20) 11/24/16 09:32 BUN 6 mg/dl (9-20) L 11/24/16 09:32 Creatinine 0.8 mg/dL (0.8-1.5) 11/24/16 09:32 Est GFR ( Amer) > 60 11/24/16 09:32 Est GFR (Non-Af Amer) > 60 11/24/16 09:32 POC Glucose (mg/dL) 288 mg/dL (65-110) H 11/23/16 22:22 Random Glucose 193 mg/dL (75-110) H 11/24/16 09:32 Calcium 8.6 mg/dL (8.4-10.2) 11/24/16 09:32 Total Bilirubin 0.3 mg/dl (0.2-1.3) 11/22/16 15:40 AST 17 U/L (17-59) D 11/22/16 15:40 ALT 28 U/L (21-72) 11/22/16 15:40 Alkaline Phosphatase 108 U/L (38-126) 11/22/16 15:40 Total Protein 6.8 G/DL (6.3-8.2) 11/22/16 15:40 Albumin 3.6 g/dL (3.5-5.0) 11/22/16 15:40 Globulin 3.2 gm/dL (2.2-3.9) 11/22/16 15:40 Albumin/Globulin Ratio 1.1 (1.0-2.1) 11/22/16 15:40 Amylase 93 U/L (30-110) 11/22/16 15:40 Lipase 14 U/L (23-300) L 11/22/16 15:40 Urine Color Yellow (YELLOW) 11/22/16 17: Urine Clarity Clear (Clear) 11/22/16 17: Urine pH 6.0 (5.0-8.0) 11/22/16 17:29 Ur Specific [place] 1.015 (1.003-1.030) 11/22/16 17: Urine Protein 100 mg/dL (NEGATIVE) 11/22/16 17: Urine Glucose (UA) 150 mg/dL (Normal) 11/22/16 17: Urine Ketones Negative mg/dL (NEGATIVE) 11/22/16 17: Urine Blood Negative (NEGATIVE) 11/22/16: Urine Nitrate Negative (NEGATIVE) 11/22/16: Urine Bilirubin Negative (NEGATIVE) 11/22/16: Urine Urobilinogen 0.2-1.0 mg/dL (0.2-1.0) 11/22/16 17: Ur Leukocyte Esterase Neg [place]/uL (Negative) 11/22/16 17: Urine RBC (Auto) 1 /hpf (0-3) 11/22/16 17: Urine Microscopic WBC 1 /hpf (0-5) 11/22/16 17: Ur Squamous Epith Cells < 1 /hpf (0-5) 11/22/16: Hyaline Casts 3-5 /hpf (0-2) H 11/22/16 17: Stool Leukocytes, Qual Negative (NEGATIVE) 11/22/16 23:50 C. difficile Ag & Toxin Negative (NEGATIVE) 11/22/16 23:50 - Hospital Course Hospital Course: 76 years old male with hx of CHF, COPD, DM II and metastatic Colon cancer on Chemotherapy, sent to ED by oncology with worsening of his diarrhea which he has had for 4 weeks. No fever, chills, nausea, vomits, Chest Pain nor urinary symptoms.Patient had almost 10 episodes of watery diarrhea in ED and K 3.2. Patient admitted for dehydration , generalized weakness and hypokalemia. Started on IVF, KCL replacement , Lomotil and Bentyl Oncology consulted and discussed with Dr. Mills Patient is having a lot of side effects from chemotherapy so it wsa decided to stop chemoterpay for now At present patient feeling better.only 3 episodes of diarrhea today , tolerating po intake Will d/c home on Po Imodium , Bentyl PRN and Kcl replacements Counselled on Po hydration Follow up with Dr. Mills 1.Uncontrolled Acute Diarrhea Probably secondary to Chemotherapy C Diff- negative Started Lomotil and Bentyl Given IVF and Kcl replacement GI consulted Will d/c home on PO imodium , lomotyl PRN and KCl Po 2.Dehydration due to the Diarrhea Received IV fluids promote Po fluid intake 3. Hypokalemia secondary to diarrhea Replaced K D/c on Po Kcl 4. Anemia of chronic disease H& H stable 5.HTN uncontrolled Continue Coreg/ Cozaar and norvasc 6. DM II Diabetic diet Novolog sliding scale with accuchecks ACHS 7. Colon Cancer Consult with Dr Mills Oncology appreciated Will stop chemo for now 8. DVT Protocol SCD Discharge Exam - Head Exam Head Exam: ATRAUMATIC, NORMOCEPHALIC - Eye Exam Additional comments: left eye prosthesis right eye pupil reactive to light - ENT Exam ENT Exam: Mucous Membranes Moist, Normal Exam - Neck Exam Neck exam: Normal Inspection - Respiratory Exam Respiratory Exam: Clear to PA & Lateral, NORMAL BREATHING PATTERN. absent: Rhonchi, Wheezes - Cardiovascular Exam Cardiovascular Exam: REGULAR RHYTHM, +S1, +S2. absent: JVD - GI/Abdominal Exam GI & Abdominal Exam: Normal Bowel Sounds, Soft, Tenderness (with palpation). absent: Distended, Guarding, Rigid - Rectal Exam Rectal Exam: Deferred - Extremities Exam Extremities exam: normal capillary refill, normal inspection, pedal pulses present - Back Exam Back exam: NORMAL INSPECTION - Neurological Exam Neurological exam: Alert, CN II-XII Intact, Oriented x3, Reflexes Normal - Psychiatric Exam Psychiatric exam: Normal Affect, Normal Mood - Skin Skin Exam: Dry, Pallor, Warm Discharge Plan - Discharge Medications Prescriptions: Potassium Chloride 20 meq PO DAILY #14 tab.er.prt - Follow Up Plan Condition: STABLE Disposition: HOME/ ROUTINE Patient education suggested?: Yes Instructions: Dehydration (DC), Potassium Content of Foods List (DC) Additional Instructions: Drink plentyof PO fluids- elfego gatoraide when diarhea occurs Maintain safety precautions Referrals: Whitney Mills MD [Staff Provider] - Stan Paige MD [Staff Provider] -
[2016-11-24 16:10] VITALS: BP 140/57; PULSE 78; RESP 17; TEMP 98.2; O2SAT 97
[2016-11-24] MEDS: Atropine-Diphenoxylate 0.025-2.5 mg Tab PO PRN (16:37)
--- NOTE | 2016-11-25 14:35 | CON ---
DATE: 11/24/2016 REFERRING PHYSICIAN: Dr. Brent Benz. REASON FOR CONSULTATION: Diarrhea. HISTORY OF PRESENT ILLNESS: This is a pleasant 76-year-old male with history oncology, histor y of CHF, COPD, diabetes, colon cancer, chemotherapy comes in with worsening diarrhea, he has had for about a month or so. He thinks it is likely that he had is improved, currently is tolerating diet, doing well, no apparent distress. PAST MEDICAL HISTORY: As above. PAST SURGICAL HISTORY: As above. MEDICATIONS: Have been reviewed. REVIEW OF SYSTEMS: All other systems have been reviewed and negative apart from the HPI. PHYSICAL EXAMINATION: VITAL SIGNS: Here in the hospital are grossly unremarkable. GENERAL: This is a pleasant, elderly-appearing male lying in bed, comfortable, in no apparent distre ss. HEAD: Normocephalic, atraumatic. EYES: Pupils equally reactive to light bilaterally. No conjunctival pallor or icterus. NECK: Supple, normal range of motion. No lymphadenopathy appreciated. LUNGS: Clear to auscultation bilaterally. HEART: S1, S2. Regular rate and rhythm. No murmurs appreciated. ABDOMEN: Soft, nontender. Bowel sounds present. No rebound or guarding. RECTAL: Deferred. EXTREMITIES: Pulses present bilaterally. SKIN: Warm, dry and intact. NEUROLOGIC: Alert and oriented x 3. LABORATORY DATA: Have been reviewed. CAT scan shows some free fluid, pulmonary nodules, right hemic olectomy, enterocolitis. Labs include a WBC of 4.3, hemoglobin of 9.2, hematocrit 28.2. C. difficil e is negative. ASSESSMENT AND PLAN: This is a 76-year-old male with colitis. This is more likely secondary to chem otherapy from a GI standpoint. If the repeat Clostridium difficile is negative, will consider discha rging patient once tolerating diet. Thank you for the consult. Sylvain Brothers MD, PhD cc:Brent Benz M.D. [id number] TT: 11/25/2016 14:35:19 Confirmation # [id number] Dictation # [id number] chintan
== END 2016-11-24 17:24 | disposition home or self-care (01) | DRG 394 ==
LOC: H.ER 14:09 → H.EROBSV 21:48 → H.ERHOLD 22:42 → H.MEDSURG1 11-23 12:49 → OBSVTOIN 11-24 01:54
PROVIDERS: ADMIT Internal Medicine; ATTEND Internal Medicine
DX: K52.1 Toxic gastroenteritis and colitis (principal); C79.89 Secondary malignant neoplasm of other specified sites; C18.9 Malignant neoplasm of colon, unspecified; T45.1X5A Adverse effect of antineoplastic and immunosuppressive drugs, initial encounter; E86.0 Dehydration; E87.6 Hypokalemia; D63.8 Anemia in other chronic diseases classified elsewhere; I11.0 Hypertensive heart disease with heart failure; E11.40 Type 2 diabetes mellitus with diabetic neuropathy, unspecified; I50.9 Heart failure, unspecified; J44.9 Chronic obstructive pulmonary disease, unspecified; E78.5 Hyperlipidemia, unspecified; K21.9 Gastro-esophageal reflux disease without esophagitis; I25.10 Atherosclerotic heart disease of native coronary artery without angina pectoris; E78.00 Pure hypercholesterolemia, unspecified; H54.0 Blindness, both eyes; H40.9 Unspecified glaucoma; M19.90 Unspecified osteoarthritis, unspecified site; F41.9 Anxiety disorder, unspecified; Z79.899 Other long term (current) drug therapy; Z95.5 Presence of coronary angioplasty implant and graft; Z79.4 Long term (current) use of insulin; Z88.6 Allergy status to analgesic agent; Z91.040 Latex allergy status; Z87.891 Personal history of nicotine dependence; Y92.89 Other specified places as the place of occurrence of the external cause

== ENCOUNTER 2016-12-12 13:18 | Emergency (ER) | payer MEDICARE, BC ==
[2016-12-12 13:18] VITALS: BMI 23.6
[2016-12-12] MEDS ORDERED: Sodium Chloride 0.9% 1,000 ML IV STA (14:13)
--- NOTE | 2016-12-12 14:15 | ED PDOC ---
HPI: Abdomen Time Seen by Provider: 12/12/16 13:24 Chief Complaint (Nursing): Weakness/Neurological Deficit History Per: Patient (Abd pain assoc with constipation and decreased apaptite x 3 days. no vomiting or fever. no bloody stool,) Onset/Duration Of Symptoms: Days (3) Current Symptoms Are (Timing): Still Present Severity: Mild Pain Scale Rating Of: 2 Location Of Pain/Discomfort: Diffuse Quality Of Discomfort: Unable To Describe Associated Symptoms: Loss Of Appetite, Constipation Exacerbating Factors: None Alleviating Factors: None Past Medical History Vital Signs: Last Vital Signs Temp 98.3 F 12/12/16 13:20 Pulse 84 12/12/16 13:20 Resp 20 12/12/16 13:20 BP 153/80 H 12/12/16 13:20 Pulse Ox 98 12/12/16 14:15 - Medical History PMH: Anemia, Anxiety, Arthritis, Back Problems (neck/ back herniated disc), CAD , CHF, COPD, Diabetes (IDDM), Emphysema, HTN, Hypercholesterolemia, Malignancy ( colon) Denies: HIV, Peripheral Edema, Chronic Kidney Disease - Surgical History Surgical History: Coronary Stent, Tonsillectomy - Family History Family History: States: Unknown Family Hx - Home Medications Home Medications: Ambulatory Orders Medication Instructions Recorded Acetaminophen [Tylenol Extra 2 tab PO PRN PRN 11/22/16 Strength] Ascorbic Acid [Vitamin C] 250 mg PO BID 11/22/16 Aspirin [Ecotrin] 81 mg PO DAILY 11/22/16 Atorvastatin [Lipitor] 40 mg PO HS 11/22/16 Cholecalciferol (Vitamin D3) 5,000 iu PO WM 11/22/16 [Vitamin D3] Cilostazol [Pletal] 50 mg PO BID 11/22/16 Famotidine [Pepcid] 20 mg PO BID 11/22/16 Ferrous Sulfate [Feosol] 325 mg PO BID 11/22/16 Insulin Aspart, Recombinant 5 units SQ TID 11/22/16 [Novolog] Losartan [Cozaar] 100 mg PO HS 11/22/16 Nadolol [Corgard] 40 mg PO DAILY 11/22/16 Sucralfate [Carafate] 1 tab PO QID 11/22/16 Theophylline Anhydrous 400 mg PO DAILY 11/22/16 [Theophylline] amLODIPine [Norvasc] 5 mg PO HS 11/22/16 Dicyclomine [Bentyl] 10 mg PO QID #14 cap 11/24/16 Potassium Chloride 20 meq PO DAILY #14 tab.er.prt 11/24/16 Megestrol Acetate [Megace] 400 mg PO BID #100 oral.susp 12/12/16 - Allergies Allergies/Adverse Reactions: Allergies Allergy/AdvReac Type Severity Reaction Status Date / Time latex Allergy Mild RASH Verified 12/12/16 13:19 codeine Allergy HALLUCINATI Verified 12/12/16 13:19 ON cefepime HCl [From Maxipime] AdvReac Severe Confusion Verified 12/12/16 13:19 gabapentin [From Neurontin] AdvReac Confusion Verified 12/12/16 13:19 morphine AdvReac Hallucinati Verified 12/12/16 13:19 on oxycodone HCl [From Percocet] AdvReac Hallucinati Verified 12/12/16 13:19 on Review of Systems ROS Statement: Except As Marked, All Systems Reviewed And Found Negative Gastrointestinal: Positive for: Abdominal Pain, Constipation Physical Exam - Reviewed Nursing Documentation Reviewed: Yes Vital Signs Reviewed: Yes - Physical Exam Appears: Positive for: Non-toxic, No Acute Distress Head Exam: Positive for: ATRAUMATIC, NORMAL INSPECTION, NORMOCEPHALIC Skin: Positive for: Normal Color, Warm, DRY Eye Exam: Positive for: EOMI, Normal appearance, PERRL ENT: Positive for: Normal ENT Inspection Neck: Positive for: Normal, Painless ROM Cardiovascular/Chest: Positive for: Regular Rate, Rhythm Respiratory: Positive for: CNT, Normal Breath Sounds Gastrointestinal/Abdominal: Positive for: Bowel Sounds, Soft, Tenderness (LLQ no masses) Back: Positive for: Normal Inspection Rectal: Positive for: Black Stool Extremity: Positive for: Normal ROM Neurologic/Psych: Positive for: Alert, Oriented - Laboratory Results Result Diagrams: 12/12/16 15:50 12/12/16 15:50 - ECG O2 Sat by Pulse Oximetry: 98 Disposition - Clinical Impression Clinical Impression: Malignancy - Patient ED Disposition Is Patient to be Admitted: No Counseled Patient/Family Regarding: Studies Performed, Diagnosis, Need For Followup, Rx Given - Disposition Referrals: Stan Paige MD [Family Provider] - Disposition: Routine/Home Disposition Time: 17:28 Condition: FAIR Prescriptions: Megestrol Acetate [Megace] 400 mg PO BID #100 oral.susp Instructions: Colorectal Cancer (GEN)
[2016-12-12 16:15] LABS: BASO # 0.1 K/uL (0.0-0.2); BASO % 1.2 % (0.0-2.0); EOS # 1.3 K/uL (0.0-0.7); EOS % 12.1 % (0.0-4.0); LYMPH # 1.5 K/uL (1.0-4.3); LYMPH % 14.2 % (20.0-40.0); MEAN CELL VOLUME 83.3 fl (80.0-94.0); MEAN CORPUSCULAR HEMOGLOBIN 27.3 pg (27.0-31.0); MEAN CORPUSCULAR HGB CONC 32.8 g/dL (33.0-37.0); MEAN PLATELET VOLUME 8.5 fl (7.2-11.7); MONO % 9.5 % (0.0-10.0); NEUT # 6.6 K/uL (1.8-7.0); RED CELL DISTRIBUTION WIDTH 18.1 % (11.5-14.5); WHITE BLOOD COUNT 10.5 K/uL (4.8-10.8)
[2016-12-12 16:39] LABS: ALB/GLOB RATIO 1.2 (1.0-2.1); ALKALINE PHOSPHATASE 116 U/L (38-126); ALT/SGPT 25 U/L (21-72); AST/SGOT 21 U/L (17-59); BILIRUBIN,TOTAL 0.4 mg/dl (0.2-1.3); BLOOD UREA NITROGEN 17 mg/dl (9-20); CALCIUM 9.4 mg/dL (8.4-10.2); CARBON DIOXIDE 26 mmol/L (22-30); CHLORIDE 100 mmol/L (98-107); GFR AFRICAN-AMERICAN > 60; GLUCOSE,RANDOM 292 mg/dL (75-110); POTASSIUM 4.4 MMOL/L (3.6-5.0); SODIUM 137 mmol/l (132-148); TOTAL PROTEIN 6.7 G/DL (6.3-8.2)
--- NOTE | 2016-12-12 17:24 | CT ---
PROCEDURE: CT abdomen pelvis 12/12/2016. HISTORY: Rule out kidney stone. COMPARISON: Comparison made with prior study dated 11/22/2016 TECHNIQUE: Contiguous axial images of the abdomen and pelvis. Oral contrast was administered. No IV contrast given. Coronal and Sagittal reformats generated. Radiation dose: Total exam DLP = 397.78 mGy-cm. This CT exam was performed using one or more of the following dose reduction techniques: Automated exposure control, adjustment of the mA and/or kV according to patient size, and/or use of iterative reconstruction technique. FINDINGS: Lung bases are clear. LOWER THORAX: The chronic interstitial changes/fibrosis within both lung bases. Small calcified granuloma left lung base seen on axial image number 6. Mild linear atelectasis and or scarring in the this is a region. Small nodular subpleural nodular density measuring approximately 4 mm mm posteromedial aspect right posterior sulcus LIVER: The liver exhibits normal size measuring 14 cm in CC dimension. There are presumed vascular calcifications seen in the monty hepatis extending into the proximal hepatic parenchyma. No obvious hepatic mass or collection so far as can be seen on this limited noncontrast study. GALLBLADDER AND BILE DUCTS: Intraluminal gallbladder calculi. PANCREAS: Pancreas appears somewhat atrophic and fatty replaced. SPLEEN: Spleen is upper limits of normal/borderline enlarged measuring approximately 12.9 cm in CC dimension. Small calcifications near the splenic hilum likely vascular in origin. ADRENALS: Approximately 2 cm right adrenal mass. The left adrenal gland appears hypertrophic with possible underlying mass as well. Clinical correlation recommended. . KIDNEYS AND URETERS: Kidneys demonstrate relatively symmetric size. Calcifications in the renal hilar regions felt be vascular in origin. No evidence of obstructing nephrolithiasis. The mild infiltration changes seen in the perinephric fat nonspecific. BLADDER: Urinary bladder is appears incompletely distended which presumably accounts slight thick-walled appearance. Muscular hypertrophy may contribute. . There is also some more localized bladder wall thickening associated with what appears represent a tiny calcification along right posterolateral wall. . Rule out recently passed calculus or gravel. Additionally, the possibility of an intrinsic/invasive wall bladder wall lesion cannot be excluded. Clinical correlation recommended. REPRODUCTIVE: Prostate gland measures approximately 5 cm in transverse dimension. Prostatic calcifications are present. There are calcification changes of the seminal vesicles. APPENDIX: Appendix is not seen ; see below BOWEL: Evaluation of the bowel is limited due to the lack of oral contrast material. The stomach is incompletely distended which presumably accounts for thick-walled appearance. Possibility gastritis or other intrinsic/ invasive wall not excluded. As mentioned above, small hiatal hernia with slight wall thickening likely due protrusion gastric mucosa. Possibility of esophagitis not excluded. Visualized loops of small bowel exhibit normal contour and caliber. No evidence of acute mechanical small bowel obstruction. Apparent postoperative changes of the large bowel at the level of the mid mid-proximal ascending colon with suture along the peripheral margins of this segment of bowel. Clinic correlation with surgical history. Diverticula again seen along the sigmoid and distal descending colon junction. There is a localized area of wall thickening along the segment of bowel which was seen to better advantage on prior exam due to the presence of oral contrast material. The wall of the colon at this level is poorly delineated due to the lack of oral contrast material and possibly other factors such is a incomplete distention peristalsis and under opacified stool adherent to the luminal surfaces. . The possibility of left persistent abnormal thickening of must be considered as well. There may also be localized area of residual oral contrast material. Moderate amount of stool is present throughout the entire colon consistent with constipation. PERITONEUM: Ill-defined heterogeneous mass density again seen in the right upper quadrant of the abdomen with scattered calcifications. This lesion is of uncertain etiology though appears to be contiguous with the distal stomach and/or duodenum and also abuts what appears to be separate from the inferomedial margin of the gallbladder. This lesion measures approximately 7.2 trans x 6.8 cc x 6.2 AP and may represent likely malignant metastatic conglomeration of adenopathy within the peritoneal of mesenteries the abutting the aforementioned structures noted does appear to be separate from the crossing residual distal ascending and transverse colon this patient with a history of partial right colectomy for colon carcinoma. LYMPH NODES: Evaluation for adenopathy slightly limited due to the lack of oral and intravenous contrast material. There does appear to be a few small nonspecific retroperitoneal lymph nodes. VASCULATURE: Car partially calcified atherosclerotic plaque seen along the abdominal aorta origins of the great vessels extending into the iliac arteries. BONES: No fracture or destructive lesion. OTHER FINDINGS: None. IMPRESSION: Large heterogeneous mass lesion with scattered calcifications located in the right upper quadrant of the abdomen which may represent a conglomeration of adenopathy located in the mesenteric which abuts and inseparable from the distal stomach/duodenum. This lesion also abuts though appears to be separate from the inferomedial margin of the gallbladder. Lesion also appears to be separate from the residual colon in this patient is status post partial right hemicolectomy for colon carcinoma. . Diverticulosis involving the sigmoid colon. Previously noted wall thickening involving a short segment of the sigmoid colon is not appreciated on this exam due to the aforementioned factors mentioned above. Findings consistent with constipation. Nonspecific small hyperdense focus within right posterolateral margin of the urinary bladder with some localize wall thickening. Rule out recently passed calculus or gravel. Possibility of a invasive wall lesion not excluded. Cholelithiasis. Right adrenal mass. Masslike enlargement left adrenal gland. Borderline -mild splenomegaly. Note this case discussed with emergency room physician Dr. Dos Santos at approximately 5 10 p.m. with written down and read back verification.
[2016-12-12 18:38] VITALS: BP 144/76; PULSE 74; RESP 16; TEMP 98.1; O2SAT 99
== END 2016-12-12 18:05 | disposition home or self-care (01) ==
LOC: H.ER 13:18
DX: C80.1 Malignant (primary) neoplasm, unspecified (principal); C79.9 Secondary malignant neoplasm of unspecified site; E11.9 Type 2 diabetes mellitus without complications; I10 Essential (primary) hypertension; Z87.09 Personal history of other diseases of the respiratory system
CPT/HCPCS: 74176; 80053; 85025; 99284; J7040